=== PATIENT | male | born 1930 | race Caucasian/White ===

== ENCOUNTER 2016-06-25 10:46 | Inpatient (IN) | payer MEDICARE ==
[~2016-06-25] VITALS: Ht 182.9 cm; Wt 96.2 kg
[~2016-06-25 10:46] MED LIST: ASPI-892; DEXTROSE 50% 50 ML (IMS) SYR ONE; EYE OP; FAMO20TA5 PO; INSA10V SQ; LISI2.5T56; ONDA8TAB9 PO; [UNRECOGNIZED DRUG - REMARK]
[2016-06-25] MEDS ORDERED: ONDANSETRON 4 MG/2 ML (SDV) Z0FRAN ONE (10:51)
[2016-06-25] MEDS ORDERED: ONDANSETRON 4 MG/2 ML (SDV) Z0FRAN IVP ONE (11:00)
[2016-06-25 11:02] LABS: BASOPHILS % (AUTO) 0 % (0-10); EOSINOPHILS % (AUTO) 0 % (0-10); LYMPHOCYTES # (AUTO) 0.7 X 10^3 (1.0-4.0); LYMPHOCYTES % (AUTO) 8 % (12-44); MEAN CORPUSCULAR HEMOGLOBIN 30 PG (25-34); MEAN CORPUSCULAR HGB CONC 34 G/DL (32-36); MEAN CORPUSCULAR VOLUME 90 FL (80-99); MEAN PLATELET VOLUME 10.7 FL (7.4-10.4); MONOCYTES # (AUTO) 0.4 X 10^3 (0.0-1.0); MONOCYTES % (AUTO) 5 % (0-12); NEUTROPHILS # (AUTO) 7.8 X 10^3 (1.8-7.8); NEUTROPHILS % (AUTO) 87 % (42-75); PLATELET COUNT 162 10^3/uL (130-400); RED BLOOD COUNT 4.89 10^6/uL (4.35-5.85); RED CELL DISTRIBUTION WIDTH 12.9 % (10.0-14.5); WHITE BLOOD COUNT 8.9 10^3/uL (4.3-11.0)
[2016-06-25 11:16] LABS: BILIRUBIN,TOTAL 0.7 MG/DL (0.1-1.0); CREATININE SERUM 1.44 MG/DL (0.60-1.30); TOTAL PROTEIN 7.1 G/DL (6.4-8.2)
[2016-06-25 11:20] LABS: POTASSIUM 4.2 MMOL/L (3.6-5.0)
--- NOTE | 2016-06-25 11:22 | Diagnostic Imaging Report ---
Clinical indication: Patient with altered mental status. Exam: Axial CT scan of brain performed without IV contrast. Of note, patient was unable to hold still. Comparison: CT scan of the brain performed without IV contrast dated 02/26/2016. FINDINGS: Motion artifact limits evaluation of portions of the brain parenchyma. There is no CT evidence of acute cerebral infarct, intracranial hemorrhage, or gross mass effect. There is no significant change to the focal and patchy areas of low-attenuation white matter changes throughout both cerebral hemispheres likely representing chronic small vessel ischemic disease. There is normal devine-white matter distinction. The brain parenchymal volume appears appropriate for patient's age. There is no significant midline shift or herniation. There is no evidence of hydrocephalus. The basal cisterns are unremarkable. The skull, extracranial soft tissue, and orbits are unremarkable. There is near complete consolidation of the right frontal sinus, right ethmoid sinus, and upper aspect of the right maxillary sinus. There is mild patchy mucosal thickening in the ethmoid sinus. Paranasal sinus disease is not significantly changed compared to the prior study, as visualized. IMPRESSION: 1: Limited exam due to patient motion artifact. 2: There is no evidence of interval acute intracranial process. 3: Relatively stable CT scan of brain with chronic small vessel ischemic disease. 4: There is no significant change to the visualized portions of paranasal sinusitis. Dictated by: Dictated on workstation # [id number]
[2016-06-25 11:55] LABS: BILIRUBIN,URINE NEGATIVE (NEGATIVE); KETONES,URINE NEGATIVE (NEGATIVE); LEUKOCYTE ESTERASE ,URINE NEGATIVE (NEGATIVE); NITRITE,URINE NEGATIVE (NEGATIVE); PH,URINE 5 (5-9); PROTEIN,URINE 2+ (NEGATIVE); UROBILINOGEN,URINE NORMAL (NORMAL)
[2016-06-25 12:07] LABS: GRANULAR CASTS,URINE RARE /LPF; HYALINE CASTS, URINE RARE /LPF; SQUAMOUS EPITHELIAL CELL,UR RARE /HPF; WBC,URINE RARE /HPF
--- NOTE | 2016-06-25 12:07 | ED General ---
General Chief Complaint: Neuro-Stroke Like Symptoms Stated Complaint: LOW BLOOD SUGAR Nursing Triage Note: PT TO RM 2 BY CR CO WITH CC OF HYPOGLYCEMIA. PT'S BLOOD SUGAR WAS 24 ON EMS ARRIVAL AT HOME, 1 AMP D-50 GIVEN BY EMS [facility]. BLOOD SUGAR 196 ON ARRIVAL TO ER , STROKE ACTIVATION DONE AT 1048, PT TO CT AT 1055. PT NOT ABLE TO ANSWER QUESTIONS, JUMBLED WORDS, MOVING ARMS AND LEGS ABOUT THE BED, NOT FOLLOWING COMMANDS. LAST KNOWN WELL TIME WAS LAST NIGHT. PT WAS UNRESPONSIVE WHEN FAMILY TRIED TO WAKE HIM UP ABOUT 0930, PT NORMALLY WAKES UP AROUND 0600. Nursing Sepsis Screen: No Definite Risk Source of Information: Patient, EMS, Family Exam Limitations: No Limitations History of Present Illness Time Seen by Provider: 12:03 Initial Comments The patient is an 85-year-old white male. He is an insulin-requiring diabetic. His states that his blood sugar was 118 before bedtime last night. He did not answer the [place] this morning and EMS was called. Their glucometer blood sugar registered 24. He was given an amp of D50 and brought here. His follow-up was 196. He awakened but spoke only in gibberish and word [employer]. Timing/Duration: 12-24 Hours Allergies and Home Medications Allergies Coded Allergies: No Known Drug Allergies (Unverified , 11/25/12) Home Medications (Reported) Insuln Asp Prt/Insulin Aspart 10 Units/0.1 Ml Susp 35 UNITS SQ BID (Reported) Constitutional: see HPI other Psychiatric/Neurological: See HPI Hematologic/Lymphatic: See HPI Other The patient is arousable but unable to give any useful history. Past Mqcjeqt-Pjrhqn-Dfqrrk Hx Patient Social History Alcohol Use: Regular Use Recreational Drug Use: No Smoking Status: Never a Smoker Recent Foreign Travel: No Contact w/Someone Who Travel: No Recent Infectious Disease Expo: No Recent Hopitalizations: No Physical Abuse Screen: No Sexual Abuse: No Immunizations Up To Date Date of Influenza Vaccine: Mar 04, 2016 Seasonal Allergies Seasonal Allergies: No Surgeries HX Surgeries: Yes (BI LAT KNEES REPLACED, PROSTATECTOMY) Surgeries: Cardiac, CABG, Orthopedic Respiratory Hx Respiratory Disorders: No Cardiovascular Hx Cardiac Disorders: Yes ([place] --2006--S/P CABG) Cardiac Disorders: Chronic Edema/Swelling, Coronary Artery Disease, Deep Vein Thrombosis, Heart Attack Neurological Hx Neurological Disorders: Yes (RT LEG WEAKNESS) Neurological Disorders: TIA Genitourinary Hx Genitourinary Disorders: Yes (PROSTATECTOMY) Genitourinary Disorders: Prostate Problems Gastrointestinal Hx Gastrointestinal Disorders: No Musculoskeletal Hx Musculoskeletal Disorders: Yes Musculoskeletal Disorders: Arthritis Endocrine Hx Endocrine Disorders: Yes Endocrine Disorders: Diabetes, Insulin dep HEENT HX ENT Disorders: Yes (DENTURES) HEENT Disorders: Glaucoma Cancer Hx Cancer: Yes Cancer: Prostate Psychosocial Hx Psychiatric Problems: No Integumentary HX Skin/Integumentary Disorder: No Blood Transfusions Hx Blood Disorders: No Physical Exam Vital Signs Vital Sign - Last 12Hours 06/25/16 11:16 Temp 98.5 Pulse 96 Resp 20 B/P 183/73 Pulse Ox 98 O2 Delivery Room Air Capillary Refill : Less Than 3 Seconds General Appearance: Moderate Distress Eyes: Bilateral Eye Normal Inspection HEENT: Normal ENT Inspection Neck: Full Range of Motion Normal Inspection Non Tender Supple Carotid Bruit Respiratory: Chest Non Tender Lungs Clear Normal Breath Sounds No Accessory Muscle Use No Respiratory Distress Cardiovascular: Regular Rate, Rhythm No Edema No Gallop No JVD No Murmur Normal Peripheral Pulses Gastrointestinal: Normal Bowel Sounds No Organomegaly No Pulsatile Mass Non Tender Soft Extremity: Normal Capillary Refill Normal Inspection Normal Range of Motion Non Tender No Calf Tenderness No Pedal Edema Neurologic/Psychiatric: Alert Oriented x3 No Motor/Sensory Deficits Normal Mood/Affect Progress/Results/Core Measures Results/Orders Lab Results Laboratory Tests Test 06/25/16 10:46 06/25/16 11:45 Range/Units Alanine Aminotransferase (ALT/SGPT) 21 0-55 U/L Albumin 4.0 3.2-4.5 G/DL Alkaline Phosphatase 96 40-136 U/L Anion Gap 11 5-14 MMOL/L Aspartate Amino Transf (AST/SGOT) 25 5-34 U/L BUN/Creatinine Ratio 13 Basophils # (Auto) 0.0 0.0-0.1 10^3/uL Basophils (%) (Auto) 0 0-10 % Blood Urea Nitrogen 19 H 7-18 MG/DL Calcium Level 9.0 8.5-10.1 MG/DL Carbon Dioxide Level 21 21-32 MMOL/L Chloride Level 107 98-107 MMOL/L Creatinine 1.44 H 0.60-1.30 MG/DL Eosinophils # (Auto) 0.0 0.0-0.3 10^3/uL Eosinophils (%) (Auto) 0 0-10 % Estimat Glomerular Filtration Rate 46 Glucose Level 141 H 70-105 MG/DL Hematocrit 44 40-54 % Hemoglobin 14.8 13.3-17.7 G/DL Lymphocytes # (Auto) 0.7 L 1.0-4.0 X 10^3 Lymphocytes (%) (Auto) 8 L 12-44 % Mean Corpuscular Hemoglobin 30 25-34 PG Mean Corpuscular Hemoglobin Concent 34 32-36 G/DL Mean Corpuscular Volume 90 80-99 FL Mean Platelet Volume 10.7 H 7.4-10.4 FL Monocytes # (Auto) 0.4 0.0-1.0 X 10^3 Monocytes (%) (Auto) 5 0-12 % Neutrophils # (Auto) 7.8 1.8-7.8 X 10^3 Neutrophils (%) (Auto) 87 H 42-75 % Platelet Count 162 130-400 10^3/uL Potassium Level 4.2 3.6-5.0 MMOL/L Red Blood Count 4.89 4.35-5.85 10^6/uL Red Cell Distribution Width 12.9 10.0-14.5 % Sodium Level 139 135-145 MMOL/L Total Bilirubin 0.7 0.1-1.0 MG/DL Total Protein 7.1 6.4-8.2 G/DL White Blood Count 8.9 4.3-11.0 10^3/uL Urine Bacteria TRACE /HPF Urine Bilirubin NEGATIVE NEGATIVE Urine Casts PRESENT /LPF Urine Clarity CLEAR Urine Color YELLOW Urine Crystals NONE /LPF Urine Culture Indicated NO Urine Glucose (UA) 1+ H NEGATIVE Urine Granular Casts RARE /LPF Urine Hyaline Casts RARE /LPF Urine Ketones NEGATIVE NEGATIVE Urine Leukocyte Esterase NEGATIVE NEGATIVE Urine Mucus SMALL H /LPF Urine Nitrite NEGATIVE NEGATIVE Urine Protein 2+ H NEGATIVE Urine RBC NONE /HPF Urine RBC (Auto) NEGATIVE NEGATIVE Urine Specific [place] 1.020 1.016-1.022 Urine Squamous Epithelial Cells RARE /HPF Urine Urobilinogen NORMAL NORMAL MG/DL Urine WBC RARE /HPF Urine pH 5 5-9 My Orders Orders-NORA GARCIA MD Cbc With Automated Diff (06/25/16 10:56) Comprehensive Metabolic Panel (06/25/16 10:56) Ua Culture If Indicated (06/25/16 10:56) Ct Head Wo (06/25/16 10:56) Ondansetron Injection (Zofran Injectio (06/25/16 11:00) Ondansetron Injection (Zofran Injectio (06/25/16 10:51) Medications Given in ED Current Medications Medications Dose Ordered Sig/Bina Route Start Time Stop Time Status Last Admin Dose Admin Ondansetron HCl 8 mg ONCE ONCE IVP 06/25/16 11:00 06/25/16 11:01 DC 06/25/16 11:02 8 MG Vital Signs/I&O Vital Sign - Last 12Hours 06/25/16 11:16 Temp 98.5 Pulse 96 Resp 20 B/P 183/73 Pulse Ox 98 O2 Delivery Room Air Blood Pressure Mean: 109 Departure Impression Impression: Primary Impression: hypoglycemic global encephalopathy Disposition: ADMITTED INPATIENT Condition: Improved Decision to Admit Reason: Admit from ER (General) Decision to Admit/Date: Jun 25, 2016 Time/Decision to Admit Time: 12:25 Departure-Patient Inst. Referrals: FAM PALMER MD (PCP/Family) Primary Care Physician NORA GARCIA MD Jun 25, 2016 12:07
[2016-06-25] MEDS ORDERED: D5W 1000 ML IV SOLUTION 1,000 ML ONE (12:40)
[2016-06-25 13:20] VITALS: BP 170/70
[2016-06-25] MEDS: D5 NS 1000 ML IV SOLUTION 1,000 ML IV SCH (14:08)
[2016-06-25] MEDS ORDERED: DEXTROSE 50% 50 ML (IMS) SYR ONE ×2 (14:56→15:36)
[2016-06-25] MEDS ORDERED: DORZ10DR2 OU (16:10)
[2016-06-25] MEDS ORDERED: LATA2.5D5 OU (16:10)
[2016-06-25] MEDS ORDERED: ASPI-808 PO (16:10)
[2016-06-25] MEDS ORDERED: [UNRECOGNIZED DRUG - CODE] PO (16:10)
[2016-06-25] MEDS ORDERED: [UNRECOGNIZED DRUG - CODE] OU (16:10)
[2016-06-25] MEDS ORDERED: LISI-556 PO (16:10)
[2016-06-25] MEDS ORDERED: HUM100VI15 SQ (16:10)
[2016-06-25 16:15] VITALS: BP 159/69
[2016-06-25] MEDS ORDERED: DEXTROSE 50% 50 ML (IMS) SYR IV NR ×2 (16:15)
[2016-06-25] MEDS ORDERED: ARTIFICAL TEARS 0.4 ML UNIT DOSE (REFRESH PLUS) OU PRN (17:30)
--- NOTE | 2016-06-25 18:05 | History & Physicial ---
History of Present Illness History of Present Illness Reason for visit/HPI PT IS AN 85 Y/O MALE WHO IS KNOWN TO ME FROM CLINIC. THE PATIENT IS NOT ABLE TO PARTICIPATE IN THE HPI. WHEN I ASKED THE PATIENT IF HE KNEW WHO I WAS, HE SAID, "YES HONEY", THEN TRIED TO DRAW ME IN TO HIM, BUT WAS UNABLE TO ANSWER ANY OTHER QUESTIONS. THE PATIENT'S FAMILY WAS NOT IN THE ROOM WHEN I EXAMINED HIM AND THEREFORE HIS HPI INFORMATION IS TAKEN FROM THE EMERGENCY DEPARTMENT RECORD. PT HAD A FSBS OF 118 AT HOME LAST NIGHT, DID NOT AWAKEN THIS MORNING WHEN ALARM WENT OFF - FAMILY CALLED EMS AND PT'S BLOOD SUGAR WAS 24 ON EMS ARRIVAL AT HOME, 1 AMP D- 50 GIVEN BY EMS. WHEN PT ARRIVED TO THE ER BLOOD SUGAR 196, STROKE ACTIVATION DONE AT 1048 CT SCAN WAS NEGATIVE FOR ACUTE STROKE. PT UNABLE TO ANSWER QUESTIONS- WORD SALAD AT TIMES, REPETITIVE ANSWER OF "YES HONEY." I ATTEMPTED TO CALL THE PATIENT'S DAUGHTER, BUT THE FAMILY NEVER ANSWERED THE PHONE. Date of Admission Jun 25, 2016 at 12:38 I consulted on this patient on 06/25/16 18:05 Attending Physician Fam Heath MD Admitting Physician Fam Heath MD Consult Allergies and Home Medications Allergies Coded Allergies: No Known Drug Allergies (Unverified , 11/25/12) Home Medications Acetaminophen/Diphenhydramine 1 Each Tablet 1 TAB PO HS PRN PRN PAIN (Reported) Aspirin 325 Mg Tablet 325 MG PO DAILY (Reported) Dorzolamide HCl 10 Ml Drops 1 DROP OU BID (Reported) Hypromellose 15 Ml Drops 1 DROP OU QID PRN PRN DRY EYES (Reported) Insulin NPH Hum/Reg Insulin Hm 100 Unit/1 Ml Vial 30 UNIT SQ BID (Reported) Latanoprost 2.5 Ml Drops 1 DROP OU HS (Reported) Lisinopril 5 Mg Tablet 2.5 MG PO DAILY (Reported) TAKES 1/2 OF A (5 MG) TABLET Past [facility]-Wkiyfm-Cpmfbg Hx Patient Social History Marrital Status: Living Status: LIVES AT HOME WITH SPOUSE Employed/Student: part-time employed ([employer] AT [employer]) Alcohol Use: Regular Use Recreational Drug Use: No Smoking Status: Never a Smoker 2nd Hand Smoke Exposure: No Physical Abuse Screen: No Sexual Abuse: No Recent Foreign Travel: No Contact w/other who traveled: No Recent Hopitalizations: No Recent Infectious Disease Expo: No Immunizations Up To Date Date of Influenza Vaccine: Mar 04, 2016 Seasonal Allergies Seasonal Allergies: No Surgeries HX Surgeries: Yes (BI LAT KNEES REPLACED, PROSTATECTOMY) Surgeries: Cardiac, CABG, Orthopedic Respiratory Hx Respiratory Disorders: No Cardiovascular Hx Cardiovascular Disorders: Yes ([place] --2005--S/P CABG) Cardiac Disorders: Chronic Edema/Swelling, Coronary Artery Disease, Deep Vein Thrombosis, Heart Attack Neurological Hx Neurological Disorders: Yes (RT LEG WEAKNESS) Neurological Disorders: TIA Genitourinary Hx Genitourinary Disorders: Yes (PROSTATECTOMY) Genitourinary Disorders: Prostate Problems Gastrointestinal Hx Gastrointestinal Disorders: No Musculoskeletal Hx Musculoskeletal Disorders: Yes Musculoskeletal Disorders: Arthritis Endocrine Hx Endocrine Disorders: Yes Endocrine Disorders: Diabetes, Insulin dep HEENT HX ENT Disorders: Yes (DENTURES) HEENT Disorders: Glaucoma Loss of Vision: Denies Hearing Impairment: Hard of Hearing Cancer Hx Cancer: Yes Cancer: Prostate Psychosocial Hx Psychiatric Problems: No Integumentary HX Skin/Integumentary Disorder: No Blood Transfusions Hx Blood Disorders: No Reviewed Nursing Assessment Reviewed/Agree w Nursing PMH: Yes Family Medical History Significant Family History: Heart Disease, Hypertension Constitutional: fever other ( CONFUSED AND UNABLE TO ANSWER QUESTIONS) EENTM: other (DRY MOUTH) Respiratory: no symptoms reported Cardiovascular: no symptoms reported Gastrointestinal: No abdominal pain Genitourinary: incontinence Musculoskeletal: no symptoms reported Skin: no symptoms reported Psychiatric/Neurological: Pre-Existing Deficit Weakness Other PT UNABLE TO PARTICIPATE IN REVIEW OF SYSTEMS DUE TO HIS CONFUSED STATE All Other Systems Reviewed Negative Unless Noted: No Physical Exam Vital Signs Vital Sign - Last 12Hours 06/25/16 11:16 Temp 98.5 Pulse 96 Resp 20 B/P 183/73 Pulse Ox 98 O2 Delivery Room Air Capillary Refill : Less Than 3 Seconds General Appearance: Other (CONFUSED, PULLING MYSELF AND STAFF TO HIS BED) Eyes: Bilateral Eye Normal Inspection HEENT: PERRL/EOMI Pharynx Normal Neck: Supple Respiratory: Chest Non Tender Lungs Clear Normal Breath Sounds Cardiovascular: Regular Rate, Rhythm Gastrointestinal: Normal Bowel Sounds Soft Rectal: Deferred Extremity: Pedal Edema (TRACE) Neurologic/Psychiatric: Alert Disoriented x3 Other (STRENGTH INTACT BILATERAL UPPER EXTREMITIES, MOVES ALL EXTREMITIES, PT WILL NOT PARTICIPATE IN EXAM) Skin: Warm/Dry Lymphatic: No Adenopathy Comments PT UNABLE TO ALLOW FULL EXAM DUE TO HIS CONFUSION, GRABBING AT THIS PROVIDER, UNABLE TO DO REFLEXES DUE TO PT MOVEMENT. Assessment/Plan Assessment and Plan HYPOGLYCEMIA CONFUSION WEAKNESS HYPERTENSION HX CORONARY ARTERY DISEASE HX OF TIA FEVER GLOBAL ENCEPHALOPATHY HYPOGLYCEMIA - CONTINUE WITH D5 IN FLUIDS, PRN D50, Q 2 HOUR FSBS, CHECK LABS IN MORNING CONFUSION WITH GLOBAL ENCEPHALOPATHY - CHECK MRI OF BRAIN AND CAROTID ULTRASOUND AND ECHO IN THE MORNING - CT OF HEAD NEGATIVE, PT UNABLE TO PARTICIPATE IN EVALUATION. FAMILY NOT IN ROOM AT THIS TIME. - WILL NEED TO DISCUSS THE FULL CODE STATUS THAT FAMILY INDICATED TO STAFF THAT THEY WANT TO HAVE ON PATIENT. I DO NOT THINK THAT FULL CODE STATUS IS APPROPRIATE AT THIS TIME. WEAKNESS - MONITOR - ONCE ABLE TO PARTICIPATE IN THERAPY - NEED TO START PT/OT HYPERTENSION - WILL GIVE A DOSE OF IV LOPRESSOR PRN IF PRESSURE ABOVE 190/110 OR HEART RATE GREATER THAN 120 HX CORONARY ARTERY DISEASE HX OF TIA FEVER - GIVE PRN TYLENOL, CHECK LACTIC ACID ANALYZER, REPEAT CBC IN MORNING, BLOOD CULTURE, AND START ON ROCEPHIN AFTER CULTURE OBTAINED. ONCE LACTIC ACID ANALYZER REPORT IS BACK - IF SEPSIS PROTOCOL IS NEEDED TO BE INITIATED, WILL START ON PROTOCOL. AT THIS TIME IT DOES NOT APPEAR THAT PT IS SEPTIC. Admission Diagnosis HYPOGLYCEMIA CONFUSION WEAKNESS HYPERTENSION HX CORONARY ARTERY DISEASE HX OF TIA FEVER GLOBAL ENCEPHALOPATHY Clinical Quality Measures DVT/VTE Risk/Contraindication: Risk Factor Score Per Nursin RFS Level Per Nursing on Admit: 4+=Very High FAM HEATH MD Jun 25, 2016 18:05
[2016-06-25] MEDS ORDERED: DEXTROSE 50% 50 ML (IMS) SYR IV PRN (18:15)
[2016-06-25] MEDS ORDERED: ACETAMINOPHEN 650 MG SUPP (TYLENOL) PR NR (18:15)
[2016-06-25] MEDS ORDERED: ACETAMINOPHEN 650 MG SUPP (TYLENOL) PR PRN (18:15)
[2016-06-25] MEDS: cefTRIAXone INJECTION 1,000 MG in NORMAL SALINE (BAXTER MINI) 50 ML IV SCH (18:42)
[2016-06-25] MEDS: ENOXAPARIN 40 MG/0.4 ML (LOVENOX) SYR SC SCH (18:43)
[2016-06-25 19:25] VITALS: BP 146/61
[2016-06-25 19:25] LABS: hs C REACTIVE PROTEIN 0.21 MG/DL (0.00-0.50)
[2016-06-25 19:30] LABS: ALCOHOL < 10 MG/DL (<10)
[2016-06-25 19:47] LABS: THYROID STIMULATING HORMONE 0.37 UIU/ML (0.35-4.94)
[2016-06-25] MEDS: DORZOLAMIDE 2% 10 ML BTL (TRUSOPT) OU SCH (20:36)
[2016-06-25] MEDS: LATANOPROST 0.005% (XALATAN) OPHTH SOLN 2.5 ML OU SCH (21:00)
[2016-06-25] MEDS: PANTOPRAZOLE 40 MG/10 ML (PROTONIX) VIAL IV SCH (22:18)
[2016-06-26 00:34] VITALS: BP 145/64
[2016-06-26] MEDS: D5 NS 1000 ML IV SOLUTION 1,000 ML IV SCH ×2 (02:11→10:24)
[2016-06-26 04:24] VITALS: BP 122/66
[2016-06-26] MEDS ORDERED: NORMAL SALINE (BAXTER MINI) 50 ML IV ONE (06:40)
[2016-06-26] MEDS ORDERED: cefTRIAXone 1 GM (ROCEPHIN) VIAL ONE (06:40)
[2016-06-26 08:00] VITALS: BP 141/62
[2016-06-26] MEDS: PANTOPRAZOLE 40 MG/10 ML (PROTONIX) VIAL IV SCH ×2 (08:17→21:47)
[2016-06-26] MEDS: cefTRIAXone INJECTION 1,000 MG in NORMAL SALINE (BAXTER MINI) 50 ML IV SCH (08:17)
[2016-06-26] MEDS: ASPIRIN 325 MG (5 GR) TABLET PO SCH (08:19)
[2016-06-26] MEDS: DORZOLAMIDE 2% 10 ML BTL (TRUSOPT) OU SCH ×2 (08:20→21:49)
--- NOTE | 2016-06-26 08:27 | Progress Note (SOAP) ---
Subjective Subjective/Events-last exam PT REPORTS THAT HE IS FEELING BETTER TODAY - HIS FAMILY REPORTS HE IS COMPLAINING OF NAUSEA. THEY STATE THAT THEY THINK HE IS BACK TO HIS BASELINE. Review of Systems General: Fatigue HEENT: No Head Aches, No Eye Pain Pulmonary: No Dyspnea, No Cough Cardiovascular: No: Chest Pain, Palpitations Gastrointestinal: : NauseaNo: Abdominal Pain Genitourinary: No Dysuria Neurological: : Confusion (IMPROVED): Weakness Objective Exam Vital Signs Date Time Temp Pulse Resp B/P Pulse Ox O2 Delivery O2 Flow Rate FiO2 06/26/16 04:24 98.6 70 18 122/66 98 Room Air 06/26/16 01:52 98.6 06/26/16 00:34 99.2 72 20 145/64 94 Room Air 06/25/16 22:33 99.4 06/25/16 21:30 100.0 06/25/16 19:33 100.2 06/25/16 19:25 100.2 93 22 146/61 92 Room Air 06/25/16 18:42 100.9 06/25/16 17:15 100.9 06/25/16 16:15 100.2 90 24 159/69 99 Room Air 06/25/16 13:30 100.0 82 17 97 Room Air 06/25/16 13:20 99.0 88 14 170/70 95 Room Air 06/25/16 11:16 98.5 96 20 183/73 98 Room Air I & O 06/26/16 07:00 Intake Total 1100 ml Output Total 475 ml Balance 625 ml Capillary Refill : Less Than 3 Seconds General Appearance: No Apparent Distress WD/WN HEENT: PERRL/EOMI Pharynx Normal Respiratory: Chest Non Tender Lungs Clear Normal Breath Sounds Cardiovascular: Regular Rate, Rhythm Gastrointestinal: normal bowel sounds non tender soft no organomegaly no pulsatile mass Extremity: Normal Capillary Refill No Calf Tenderness No Pedal Edema Neurologic/Psychiatric: Alert Oriented x3 No Motor/Sensory Deficits Normal Mood/Affect Skin: Warm/Dry Lymphatic: No Adenopathy Results Lab Laboratory Tests 06/25/16 10:46: Alanine Aminotransferase (ALT/SGPT) 21, Albumin 4.0, Alkaline Phosphatase 96, Anion Gap 11, Aspartate Amino Transf (AST/SGOT) 25, BUN/Creatinine Ratio 13, Basophils # (Auto) 0.0, Basophils (%) (Auto) 0, Blood Urea Nitrogen 19H, Calcium Level 9.0, Carbon Dioxide Level 21, Chloride Level 107, Creatinine 1.44H , Eosinophils # (Auto) 0.0, Eosinophils (%) (Auto) 0, Estimat Glomerular Filtration Rate 46, Glucose Level 141H, Hematocrit 44, Hemoglobin 14.8, Lymphocytes # (Auto) 0.7L, Lymphocytes (%) (Auto) 8L, Mean Corpuscular Hemoglobin 30, Mean Corpuscular Hemoglobin Concent 34, Mean Corpuscular Volume 90, Mean Platelet Volume 10.7H, Monocytes # (Auto) 0.4, Monocytes (%) (Auto) 5, Neutrophils # (Auto) 7.8, Neutrophils (%) (Auto) 87H, Platelet Count 162, Potassium Level 4.2, Red Blood Count 4.89, Red Cell Distribution Width 12.9, Sodium Level 139, Total Bilirubin 0.7, Total Protein 7.1, White Blood Count 8.9 06/25/16 10:47: Glucometer 196H 06/25/16 11:45: Urine Bacteria TRACE, Urine Bilirubin NEGATIVE, Urine Casts PRESENT, Urine Clarity CLEAR, Urine Color YELLOW, Urine Crystals NONE, Urine Culture Indicated NO, Urine Glucose (UA) 1+H, Urine Granular Casts RARE, Urine Hyaline Casts RARE , Urine Ketones NEGATIVE, Urine Leukocyte Esterase NEGATIVE, Urine Mucus SMALLH , Urine Nitrite NEGATIVE, Urine Protein 2+H, Urine RBC NONE, Urine RBC (Auto) NEGATIVE, Urine Specific [place] 1.020, Urine Squamous Epithelial Cells RARE, Urine Urobilinogen NORMAL, Urine WBC RARE, Urine pH 5 06/25/16 12:43: Glucometer 72 06/25/16 14:56: Glucometer 47*L 06/25/16 15:35: Glucometer 76 06/25/16 16:17: Glucometer 140H 06/25/16 17:29: Glucometer 174H 06/25/16 18:53: C-Reactive Protein High Sensitivity 0.21, Lactic Acid Level 1.5, Serum Alcohol < 10, Thyroid Stimulating Hormone (TSH) 0.37 06/25/16 19:57: Glucometer 92 06/25/16 21:56: Glucometer 103 06/25/16 23:50: Glucometer 81 06/26/16 01:53: Glucometer 108 06/26/16 03:56: Glucometer 109 06/26/16 05:53: Glucometer 119H 06/26/16 06:46: 06/26/16 08:02: Glucometer 174H Assessment/Plan Assessment/Plan Assess & Plan/Chief Complaint HYPOGLYCEMIA CONFUSION WEAKNESS HYPERTENSION HX CORONARY ARTERY DISEASE HX OF TIA FEVER GLOBAL ENCEPHALOPATHY HYPOGLYCEMIA - CONTINUE WITH D5 IN FLUIDS, PRN D50, Q 2 HOUR FSBS, CHECK LABS IN MORNING CONFUSION WITH GLOBAL ENCEPHALOPATHY - UNABLE TO CHECK MRI OF BRAIN DUE TO PT INABILITY TO MOVE NECK INTO A POSITION SO THAT HIS HEAD CAN FIT INTO THE MRI MACHINE - WAITING ON REPORT FROM CAROTID ULTRASOUND AND ECHO CT OF HEAD NEGATIVE. PT HAS CLEARING OF SENSORIUM TODAY - IF CONTINUES TO IMPROVE MAY BE ABLE TO DISCHARGE TOMORROW. WEAKNESS - MONITOR -AND START PT/OT HYPERTENSION - RESTART ORAL MEDS FROM HOME HX CORONARY ARTERY DISEASE HX OF TIA FEVER - GIVE PRN TYLENOL Diagnosis/Problems: Clinical Quality Measures DVT/VTE Risk/Contraindication: Risk Factor Score Per Nursin RFS Level Per Nursing on Admit: 4+=Very High FAM PALMER MD Jun 26, 2016 08:26
[2016-06-26 08:40] LABS: MEAN PLATELET VOLUME 11.6 FL (7.4-10.4); RED BLOOD COUNT 4.38 10^6/uL (4.35-5.85); WHITE BLOOD COUNT 8.3 10^3/uL (4.3-11.0)
[2016-06-26 08:47] LABS: ALBUMIN 3.4 G/DL (3.2-4.5); CALCIUM 8.3 MG/DL (8.5-10.1); CREATININE SERUM 1.49 MG/DL (0.60-1.30); POTASSIUM 4.2 MMOL/L (3.6-5.0); TOTAL PROTEIN 6.1 G/DL (6.4-8.2)
--- NOTE | 2016-06-26 10:06 | Diagnostic Imaging Report ---
PROCEDURE: US Carotid Duplex Bilateral. TECHNIQUE: Multiple real-time grayscale images were obtained over the carotid arteries in various projections bilaterally. Additional duplex Doppler and color Doppler images were also obtained. INDICATION: Confusion. There are no prior studies available for comparison. There is fairly severe hard and soft plaque formation involving both carotid systems, particularly on the left. The flow velocities also suggest that there is a 70-80% stenosis of the distal internal carotid artery on the left. The flow velocities are as follows: Mid CCA: Right 73.7. Left 80.1. Distal CCA: Right . Left 74.6 Proximal ICA: Right 58.8. Left 183. Mid ICA: Right 105. Left 185. Distal ICA: Right 64.5. Left 256. ICA/CCA: Right 1.42. Left 3.20. The left vertebral artery was identified, and there was antegrade flow. The right vertebral artery could not be clearly imaged. IMPRESSION: 1. There is atherosclerotic disease involving both carotid systems, and there does appear to be an 70-80% stenosis of the origin of the internal carotid artery on the left. The right vertebral artery could not be identified. CTA of the neck would be recommended for further study. 2. There is no sign of a hemodynamically significant stenosis of the right carotid system. There was antegrade flow in the left vertebral artery. Dictated by: Dictated on workstation # [id number]
--- NOTE | 2016-06-26 11:53 | Occupational Therapy Eval ---
OT Evaluation-General/PLF Medical Diagnosis Admission Date Jun 25, 2016 at 18:06 Medical Diagnosis: Hypoglycemia, Global encephalopathy Onset Date: Jun 25, 2016 Therapy Diagnosis Therapy Diagnosis: Weakness, Decreased ADL skills Height/Weight Height (Feet): 6 Height (Inches): 0.00 Weight (Pounds): 212 Weight (Ounces): 3.0 Precautions Precautions/Isolations: Fall Prevention Safety Interventions: Reorient-PRN Weight Bear Status Weight Bearing Restriction: Weight Bearing/Tolerated Referral Physician: Dr. Heath Referral Reason: Activity Tolerance, Self Care, Evaluation/Treatment, Strengthening/ROM Medical History Pertinent Medical History: CABG, CAD Additional Medical History Bilateral knees replaced, prostatectomy, DVT, TIA, diabetes, glaucoma Current History Pt. became confused at home. Unable to arouse. Lives with spouse. Has a walker but "doesn't use it." Reviewed History: Yes Social History Home: Single Level Current Living Status: Spouse Entry Into Home: Ramp ADL-Prior Level of Function ADL PLOF Comments Spouse in room and answers questions for pt. Pt. was independent with daily tasks, and drove. States that he would mow grass. DME/Equipment: Bath Chair, Tub/Shower DME/Equipment Comments Has walker. 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 Pt. smiling. Confused about history. Appearance Pt. in bed. Starting to get out of bed with PT. Agrees to co-treat. Please see note. Mental Status/Objective Patient Orientation: Unable to Assess Attachments: Smith Catheter, IV Current Glasses/Contacts: Yes Hearing Aids: No Dentures/Partials: Yes Hand Dominance: Right Upper Extremity ROM WFL Upper Extremity Strength 3/5 bilateral UE strength. ADL-Treatment Functional [place] Measure 0=Not Assessed/NA 4=Minimal Assistance 1=Total Assistance 5=Supervision or Setup 2=Maximal Assistance 6=Modified [place] 3=Moderate Assistance 7=Complete IndependenceIRFPAI Quality Coding Scale 6 Independent with activity with or without an assistive device 5 Patient requires set up or clean up by helper. Patient completes activity by themselves 4 Supervision or touching assist (CGA). [place] provide cues , steadying assist 3 The helper provides less than half the effort to complete the activity 2 The helper provides more than half the effort to complete the activity 1 Dependent. The helper does all the effort to complete an activity 7 Patient refused to complete or attempt activity 9 The patient did not perform the activity before the current illness or injury 88 Not attempted due to Medical conditions or safety concerns Lower Body Dressing (FIM): 2 (Pt. unable to reach bilateral feet to don socks.) Transfers (B, C, W/C) (FIM): 3 (Without walker- required min assist x 2. With walker, min assist with assist of another to push IV pole.) Other Treatments Co-treat with PT. PT focused on transfer training and skilled ambulation while OT facilitated ADL skills with donning socks, and then hand placement while ambulating. Pt. unsteady on feet. Somewhat unbalance. PT began treatment before OT in room. OT facilitated education to spouse while PT assisting pt. back to bed. Education to spouse included need for safety. Education OT Patient Education: Correct positioning, Modified ADL techniques, Progress toward Goal/Update tx plan, Purpose of tx/functional activities, Reviewed precautions, Transfer techniques Teaching Recipient: Patient, Family Teaching Methods: Demonstration, Discussion Response to Teaching: Verbalize Understanding, Return Demonstration OT Short Term Goals Short Term Goals 1=Demonstrate adherence to instructed precautions during ADL tasks. 2=Patient will verbalize/demonstrate understanding of assistive devices/ modifications for ADL. 3=Patient will improve strength/tolerance for activity to enable patient to perform ADL's. OT Prison Goals Workers Compensation Consultant Goals 1=Demonstrate adherence to instructed precautions during ADL tasks. 2=Patient will verbalize/demonstrate understanding of assistive devices/ modifications for ADL. 3=Patient will improve strength/tolerance for activity to enable patient to perform ADL's. OT Education/Plan Problem List/Assessment Assessment: Decreased Activ Tolerance, Decreased UE Strength, Dependent Transfers, Impaired Bed Mobility, Impaired Cognition, Impaired Funct Balance, Impaired I ADL's, Impaired Self-Care Skills, Restricted Funct UE ROM Discharge Recommendations Plan/Recommendations: Continue POC Therapy D/C Recommendations: 24 hr Supervision Target Placement Spouse would like pt. to return home. However, at this time due to decreased cognition, he will require 24 hour assist. Treatment Plan/Plan of Care Treatment,Training & Education: Yes Patient would benefit from OT for education, treatment and training to promote independence in ADL's, mobility, safety and/or upper extremity function for ADL' s. Plan of Care: ADL Retraining, Functional Mobility, UE Funct Exercise/Act Agreement: Yes Rehab Potential: Fair Time/GCodes Start Time: 11:20 Stop Time: 11:35 Total Time Billed (hr/min): 15 Billed Treatment Time 1, DUKE Mccauley OT Jun 26, 2016 11:53
--- NOTE | 2016-06-26 11:59 | Physical Therapy Evaluation ---
PT Evaluation-General Medical Diagnosis Admission Date Jun 25, 2016 at 18:06 Medical Diagnosis: hypoglycemia Onset Date: Jun 25, 2016 Therapy Diagnosis Therapy Diagnosis: generalized weakness and debility Height/Weight Height (Feet): 6 Height (Inches): 0.00 Weight (Pounds): 212 Weight (Ounces): 3.0 Precautions Precautions/Isolations: Fall Prevention Referral Physician: Ivana Reason for Referral: Evaluation/Treatment Medical History Pertinent Medical History: Arthritis, CABG, CAD, DM, [place] Additional Medical History bilateral TKR Current History patient did not wake with alarm in a.m.; per EMS patient blood sugar was 24 increased confusion/global encephalopathy Reviewed History: Yes Social History Home: Single Level Current Living Status: Spouse Entry Into Home: Level Entry Prior/Core FIM Prior Level of Function Functional [place] Measure 0=Not Assessed/NA 4=Minimal Assistance 1=Total Assistance 5=Supervision or Setup 2=Maximal Assistance 6=Modified [place] 3=Moderate Assistance 7=Complete [place] Bed Mobility: 6 Transfers (B,C,W/C) (FIM): 6 Gait: 6 uses FWW at home occasionally PT Evaluation-Current Subjective Patient initially declined, however, after much encouragement, patient agrees to PT. Pain Numeric Pain Scale: 0-No Pain Location: No Pain Reported Objective Patient Orientation: Confused Problem Solving: Poor Attachments: Smith Catheter, IV ROM/Strength ROM Lower Extremities bilateral LE WFL Strenght Lower Extremities bilateral LE WFL; unable to formally test due to confusion Integumentary/Posture Integumentary refer to nursing notes Bladder Incontinence: Smith Cath Posture kyphotic Neuromuscular (Tone, Coordination, Reflexes) diminished coordination Sensory Vision: Wears Glasses Hearing: Impaired Sensation Right Lower Extremit: Impaired Sensation Left Lower Extremity: Impaired Transfers Functional [place] Measure 0=Not Assessed/NA 4=Minimal Assistance 1=Total Assistance 5=Supervision or Setup 2=Maximal Assistance 6=Modified [place] 3=Moderate Assistance 7=Complete [place] Transfers (B, C, W/C) (FIM): 2 Scootin Rollin Supine to/from Sit: 2 Sit to/from Stand: 4 patient is impulsive and unaware of safety concerns Gait Mode of Locomotion: Walk Anticipated Mode of Locomotion: Walk Gait (FIM): 3 Distance (FIM): 3=150 ft Distance: 200' Gait Level of Assist: 3 Gait Persons Needed: 2 Gait Assistive Device: FWW Comments/Gait Description mod assist of 1 and SBA of 1 for safety; patient is very unsteady with gait and impulsive Balance Sitting Static: Fair Sitting Dynamic: Fair Standing Static: Fair Standing Dynamic: Fair Treatment PT and OT cotreat due to patient confusion and inability to follow direction safely. PT address balance and gait training, while OT address bilateral hand placement with FWW and cognitive function with sequencing. Assessment/Needs 85 y.o. male, will benefit from skilled PT to address functional strength and mobility to improve current LOF and to safely return to home or care facility at maximum LOF. 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 Goals Senior Living Goals PT Senior Living Goals Time Frame: Jul 03, 2016 Transfers (B,C,W/C) (FIM): 5 Gait (FIM): 5 Gait distance (FIM): 3=150 ft Gait Assistive Device: FWW PT Plan Problem List Problem List: Activity Tolerance, Functional Strength, Safety, Balance, Gait, Transfer, Bed Mobility Treatment/Plan Treatment Plan: Continue Plan of Care Treatment Plan: Bed Mobility, Education, Functional Activity Santosh, Functional Strength, Gait, Safety, Therapeutic Exercise, Transfers Treatment Duration: Jul 03, 2016 # of days/week 5-6 Visits Per Week: 5-6 Pt/Family Agrees w/Plan: Yes Safety Risks/Education Patient Education: Gait Training, Safety Issues Teaching Recipient: Patient, Significant Other Teaching Methods: Demonstration, Discussion Response to Teaching: Unable to Return Demonstration, Unable to Comprehend, Reinforcement Needed Discharge Recommendations Therapy D/C Recommendations: Correction Placement, Intermediate (TCU/NH) Time/GCodes Time In: 1105 Time Out: 1135 Total Billed Treatment Time: 30 Total Billed Treatment 1 visit EVMod 15 min (and cotreat with OT 15 min) GUILLAUME WINTER PT Jun 26, 2016 11:59
[2016-06-26 12:00] VITALS: BP 156/66
--- NOTE | 2016-06-26 12:21 | ST Dysphagia Evaluation ---
Speech Evaluation-General Medical Diagnosis hypoglycemia Onset Date: Jun 25, 2016 Therapy Diagnosis Therapy Diagnosis: Mild Oral Dysphagia Precautions Precautions: Aspiration Precautions/Isolations: Fall Prevention Referral Referring Physician: Dr. Perlita Heath Reason for Referral: Evaluation/Treatment Clinical Bedside Swallowing Evaluation Medical History Pertinent Medical History: Arthritis, CABG, CAD, DM, [place] Reviewed History: Yes Social History Current Living Status: Spouse Speech PLF/Current-Dysphagia Prior Level of Function The patient's was present at bedside for the evaluation. Per patient's , the patient does not demonstrate signs/symptoms of aspiration with any consistency he currently consumes. The patient is currently receiving a regular diet with thin liquids. Subjective The patient was recently admitted to [facility] with a diagnosis of hypoglycemia. The patient greeted the clinician upon entrance and agreed to participate in the dysphagia evaluation on this date. A chest exam is not present prior to the assessment. Cognitive Status Patient Orientation: Person Oral Motor Skills Dentition: Edentalous Denture Type: Full- Upper & Lower Current Food Consistancy: Regular, Thin Liquids Ability to Follow Directions: Fair Oral Expression Ability: Moderate Impairment Voice Voice Phonatory-Based Quality: Normal Voice Pitch: Normal Voice Loudness: Normal Face Facial Symmetry: Symmetrical Oral-Facial Assessment Oral-Facial Dentition: Normal Labial Seal Description: Normal Smile: Normal Puff Cheeks: Normal Lingual ROM: Normal Lingual Strength: Normal Pharynx Velopharyngeal Move.: Normal Volitional Dry Swallow: Yes Dysphagia Evaluation Consistencies Presented: Regular, Thin Liquid, Pureed - The patient demonstrated mild oral holding with all consistencies tested. The patient elicited a swallow upon verbal prompt by clinician, consistently. - No pharyngeal impairments were noted throughout the evaluation. - Thin Liquid (via straw), puree, solid: No signs/symptoms of aspiration were demonstrated with multiple boluses of thin liquid, puree, or solid consistency. The patient's vocal quality remained clear and he denied discomfort upon swallowing. Oral holding was demonstrated with all consistencies. The patient elicited a swallow with verbal prompting from clinician (consistently). Dietary Recommendations: Regular Liquid Recommendations: Thin Swallowing Precautions: Oral Supervision Caregiver, Small Bites and Sips, Sitting 90 Degrees 30 Post Intake 1. Assess for oral holding throughout meals. If present, verbally prompt patient to elicit swallow. Dysphagia Evaluation Summary The patient demonstrated mild oral dysphagia characterized by oral holding. Speech-Plan Treatment Plan Speech Therapy Treatment Plan: Discontinue ST (Eval, only.) Rehab Potential: Fair Safety Risks/Education Teaching Recipient: Patient, Significant Other Teaching Methods: Discussion Response to Teaching: Verbalize Understanding, Reinforcement Needed Education Topics Provided: Swallowing Strategies, Recommendations Time Speech Therapy Time In: 12:00 Speech Therapy Time Out: 12:15 Total Billed Time: 15 Billed Treatment Time 1, VICTOR HUGO AMAYA Jun 26, 2016 12:21
[2016-06-26] MEDS: CATHETER FLUSH 10 ML SYR IV SCH ×2 (14:00→21:57)
[2016-06-26 15:50] VITALS: BP 144/69
[2016-06-26] MEDS: ENOXAPARIN 40 MG/0.4 ML (LOVENOX) SYR SC SCH (18:17)
[2016-06-26 20:55] VITALS: BP 159/62
[2016-06-26] MEDS: LATANOPROST 0.005% (XALATAN) OPHTH SOLN 2.5 ML OU SCH (21:00)
[2016-06-26] MEDS ORDERED: HALOPERIDOL 5 MG/ML (HALDOL) AMP IM ONE (21:45)
[2016-06-26] MEDS ORDERED: HALOPERIDOL 5 MG/ML (HALDOL) AMP IV ONE (21:45)
[2016-06-26] MEDS: NS IV 1000 ML 1,000 ML IV SCH (21:47)
[2016-06-27] VITALS: BP 134/62
[2016-06-27 04:00] VITALS: BP 126/66
[2016-06-27] MEDS: CATHETER FLUSH 10 ML SYR IV SCH ×3 (05:00→20:27)
[2016-06-27 05:22] LABS: MEAN PLATELET VOLUME 11.1 FL (7.4-10.4); RED BLOOD COUNT 4.26 10^6/uL (4.35-5.85); RED CELL DISTRIBUTION WIDTH 12.8 % (10.0-14.5); WHITE BLOOD COUNT 6.3 10^3/uL (4.3-11.0)
[2016-06-27 05:40] LABS: CALCIUM 8.1 MG/DL (8.5-10.1); CREATININE SERUM 1.37 MG/DL (0.60-1.30)
[2016-06-27 08:16] VITALS: BP 128/62
[2016-06-27] MEDS: PANTOPRAZOLE 40 MG/10 ML (PROTONIX) VIAL IV SCH ×2 (08:26→20:25)
[2016-06-27] MEDS: cefTRIAXone INJECTION 1,000 MG in NORMAL SALINE (BAXTER MINI) 50 ML IV SCH (08:26)
[2016-06-27] MEDS: ASPIRIN 325 MG (5 GR) TABLET PO SCH (08:27)
[2016-06-27] MEDS: NS IV 1000 ML 1,000 ML IV SCH ×2 (08:28→12:48)
[2016-06-27] MEDS: DORZOLAMIDE 2% 10 ML BTL (TRUSOPT) OU SCH ×2 (08:28→20:26)
--- NOTE | 2016-06-27 09:04 | Progress Note (SOAP) ---
Subjective Subjective/Events-last exam patient still has some confusion. 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 Patient knows that on the physician. According to family member patient used to work and still works. Patient had hypoglycemia at home. Patient has confusion and weakness. Patient has history of hypertension,, coronary artery disease. Patient has history of TIA area Global encephalopathy. Patient last night had confusion. Patient a known diabetic on insulin Objective Exam Vital Signs Date Time Temp Pulse Resp B/P Pulse Ox O2 Delivery O2 Flow Rate FiO2 06/27/16 08:16 97.9 68 18 128/62 97 Room Air 06/27/16 04:00 98.7 72 19 126/66 98 Room Air 06/27/16 00:00 96.3 65 18 134/62 95 Room Air 06/26/16 21:45 Room Air 06/26/16 20:55 98.4 70 16 159/62 97 Room Air 06/26/16 15:50 98.1 66 16 144/69 94 Room Air 06/26/16 12:00 97.9 67 18 156/66 98 Room Air I & O 06/27/16 07:00 Intake Total 1990 ml Output Total 1100 ml Balance 890 ml Capillary Refill : NONELess Than 3 Seconds General Appearance: No Apparent Distress WD/WN Other (fusion) HEENT: Normal ENT Inspection Neck: Normal Inspection Respiratory: Chest Non Tender Lungs Clear Normal Breath Sounds No Accessory Muscle Use No Respiratory Distress Cardiovascular: Regular Rate, Rhythm No Murmur Gastrointestinal: non tender soft Results Lab Laboratory Tests 06/26/16 10:13: Glucometer 155H 06/26/16 12:14: Glucometer 233H 06/26/16 15:08: Glucometer 237H 06/26/16 15:59: Glucometer 242H 06/26/16 18:03: Glucometer 209H 06/26/16 20:32: Glucometer 193H 06/26/16 22:15: Glucometer 165H 06/26/16 23:52: Glucometer 166H 06/27/16 02:01: Glucometer 164H 06/27/16 04:06: Glucometer 144H 06/27/16 04:45: Anion Gap 6, BUN/Creatinine Ratio 13, Blood Urea Nitrogen 18, Calcium Level 8.1L , Carbon Dioxide Level 23, Chloride Level 112H, Creatinine 1.37H, Estimat Glomerular Filtration Rate 49, Glucose Level 139H, Hematocrit 39L, Hemoglobin 12.9L, Mean Corpuscular Hemoglobin 30, Mean Corpuscular Hemoglobin Concent 33, Mean Corpuscular Volume 91, Mean Platelet Volume 11.1H, Platelet Count 122L, Potassium Level 4.0, Red Blood Count 4.26L, Red Cell Distribution Width 12.8, Sodium Level 141, White Blood Count 6.3 06/27/16 06:22: Glucometer 137H 06/27/16 08:32: Glucometer 123H Microbiology 06/25/16 Blood Culture - Preliminary, Resulted No growth Assessment/Plan Assessment/Plan Assess & Plan/Chief Complaint hypoglycemia. Confusion. Weakness. Global encephalopathy. Diabetes. History of hypertension, coronary artery disease and TIA. Diagnosis/Problems: Clinical Quality Measures DVT/VTE Risk/Contraindication: Risk Factor Score Per Nursin RFS Level Per Nursing on Admit: 4+=Very High MARRY TAYLOR DO Jun 27, 2016 09:04
[2016-06-27 09:39] LABS: ALBUMIN 3.3 G/DL (3.2-4.5); BILIRUBIN,DIRECT 0.4 MG/DL (0.0-0.3); BILIRUBIN,INDIRECT 0.6 MG/DL; TOTAL PROTEIN 5.9 G/DL (6.4-8.2)
[2016-06-27] MEDS: DOXYCYCLINE 100 MG (VIBRAMYCIN) TABLET PO SCH ×2 (10:17→16:52)
--- NOTE | 2016-06-27 10:50 | Physical Therapy Daily Note ---
PT Daily Note-Current Subjective Pt agreeable and denies pain. Pt daughter present. Mental Status Patient Orientation: Person, Place Attachments: Smith Catheter, IV Transfers Functional [place] Measure 0=Not Assessed/NA 4=Minimal Assistance 1=Total Assistance 5=Supervision or Setup 2=Maximal Assistance 6=Modified [place] 3=Moderate Assistance 7=Complete IndependenceIRFPAI Quality Coding Scale 6 Independent with activity with or without an assistive device 5 Patient requires set up or clean up by helper. Patient completes activity by themselves 4 Supervision or touching assist (CGA). [place] provide cues , steadying assist 3 The helper provides less than half the effort to complete the activity 2 The helper provides more than half the effort to complete the activity 1 Dependent. The helper does all the effort to complete an activity 7 Patient refused to complete or attempt activity 9 The patient did not perform the activity before the current illness or injury 88 Not attempted due to Medical conditions or safety concerns Bed mobility and transfer out of bed min A. Sit to stand CGA and steady in standing. Gait Training Gait Assistive Device: FWW Pt amb with FWW and f/u of IV x 300ft at steady speed. One episode of unsteadiness, self righted when pt wheel on FWW caught a chair. Assessment Current Status: Good Progress PT back to bed per request with call light in reach and all needs met. Ambu alarm activated and daughter present. PT Physician Extender Goals Physician Extender Goals PT Residential Goals Time Frame: Jul 03, 2016 Transfers (B,C,W/C) (FIM): 5 Gait (FIM): 5 Gait distance (FIM): 3=150 ft Gait Assistive Device: FWW PT Plan Treatment/Plan Treatment Plan: Continue Plan of Care Treatment Plan: Bed Mobility, Education, Functional Activity Santosh, Functional Strength, Gait, Safety, Therapeutic Exercise, Transfers Treatment Duration: Jul 03, 2016 Visits Per Week: 5-6 Time/GCodes Time In: 905 Time Out: 930 Total Billed Treatment Time: 25 Total Billed Treatment 1, gait 25 min KIKO VANN CPTA Jun 27, 2016 10:50
[2016-06-27 12:00] VITALS: BP 134/66
[2016-06-27 16:00] VITALS: BP 138/69
[2016-06-27] MEDS: ENOXAPARIN 40 MG/0.4 ML (LOVENOX) SYR SC SCH (18:00)
[2016-06-27 20:00] VITALS: BP 131/65
[2016-06-27] MEDS: LATANOPROST 0.005% (XALATAN) OPHTH SOLN 2.5 ML OU SCH (20:27)
[2016-06-28] VITALS: BP 150/69
[2016-06-28] MEDS: NS IV 1000 ML 1,000 ML IV SCH ×2 (02:47→16:35)
[2016-06-28 04:00] VITALS: BP 158/81
[2016-06-28 05:31] LABS: MEAN PLATELET VOLUME 11.1 FL (7.4-10.4); RED BLOOD COUNT 4.12 10^6/uL (4.35-5.85); RED CELL DISTRIBUTION WIDTH 12.7 % (10.0-14.5); WHITE BLOOD COUNT 5.8 10^3/uL (4.3-11.0)
[2016-06-28] MEDS: DOXYCYCLINE 100 MG (VIBRAMYCIN) TABLET PO SCH ×2 (05:53→16:36)
[2016-06-28] MEDS: CATHETER FLUSH 10 ML SYR IV SCH ×3 (05:54→20:16)
[2016-06-28 05:55] LABS: CALCIUM 8.2 MG/DL (8.5-10.1); CREATININE SERUM 1.28 MG/DL (0.60-1.30); POTASSIUM 4.1 MMOL/L (3.6-5.0)
[2016-06-28] MEDS: ASPIRIN 325 MG (5 GR) TABLET PO SCH (08:24)
[2016-06-28] MEDS: cefTRIAXone INJECTION 1,000 MG in NORMAL SALINE (BAXTER MINI) 50 ML IV SCH (08:25)
[2016-06-28] MEDS: PANTOPRAZOLE 40 MG/10 ML (PROTONIX) VIAL IV SCH ×2 (08:25→20:16)
[2016-06-28] MEDS: DORZOLAMIDE 2% 10 ML BTL (TRUSOPT) OU SCH ×2 (08:25→20:16)
[2016-06-28 08:36] VITALS: BP 152/76
--- NOTE | 2016-06-28 09:29 | Progress Note (SOAP) ---
Subjective Subjective/Events-last exam patient is doing better and less confused today. Hypoglycemia. Global encephalopathy. Diabetes. To take his catheter out. Patient less confused and more talkative Objective Exam Vital Signs Date Time Temp Pulse Resp B/P Pulse Ox O2 Delivery O2 Flow Rate FiO2 06/28/16 08:36 98.2 68 18 152/76 97 Room Air 06/28/16 04:00 98.1 60 19 158/81 96 Room Air 06/28/16 00:00 97.3 64 18 150/69 93 Room Air 06/27/16 21:00 Room Air 06/27/16 20:00 97.5 110 18 131/65 95 Room Air 06/27/16 16:00 97.5 62 18 138/69 97 Room Air 06/27/16 12:00 98.2 74 18 134/66 98 Room Air 06/27/16 10:07 98 Room Air I & O 06/28/16 07:00 Intake Total 2590 ml Output Total 1050 ml Balance 1540 ml Capillary Refill : NONELess Than 3 Seconds General Appearance: No Apparent Distress WD/WN HEENT: Normal ENT Inspection Neck: Normal Inspection Respiratory: Chest Non Tender No Accessory Muscle Use No Respiratory Distress Cardiovascular: Regular Rate, Rhythm No Murmur Gastrointestinal: soft Results Lab Laboratory Tests 06/28/16 05:10 Laboratory Tests 06/27/16 10:27: Glucometer 117H 06/27/16 15:35: Glucometer 186H 06/27/16 17:58: Glucometer 171H 06/27/16 19:58: Glucometer 169H 06/27/16 22:15: Glucometer 158H 06/27/16 23:48: Glucometer 154H 06/28/16 01:54: Glucometer 126H 06/28/16 03:48: Glucometer 138H 06/28/16 05:10: Anion Gap 7, BUN/Creatinine Ratio 16, Blood Urea Nitrogen 20H, Calcium Level 8.2L, Carbon Dioxide Level 21, Chloride Level 111H, Creatinine 1.28, Estimat Glomerular Filtration Rate 53, Glucose Level 131H, Hematocrit 37L, Hemoglobin 12.5L, Mean Corpuscular Hemoglobin 30, Mean Corpuscular Hemoglobin Concent 34, Mean Corpuscular Volume 91, Mean Platelet Volume 11.1H, Platelet Count 120L, Potassium Level 4.1, Red Blood Count 4.12L, Red Cell Distribution Width 12.7, Sodium Level 139, White Blood Count 5.8 06/28/16 05:50: Glucometer 135H 06/28/16 07:56: Glucometer 132H Microbiology 06/25/16 Blood Culture - Preliminary, Resulted No growth Assessment/Plan Assessment/Plan Assess & Plan/Chief Complaint hypoglycemia. Confusion. Weakness. Global encephalopathy. Diabetes. History of hypertension, coronary artery disease and TIA.. . 06/28/16. Hypoglycemia resolved. Confusion improving. Weakness. Global encephalopathy. Diabetes. History of hypertension. History of coronary artery disease and TIA Diagnosis/Problems: Clinical Quality Measures DVT/VTE Risk/Contraindication: Risk Factor Score Per Nursin RFS Level Per Nursing on Admit: 4+=Very High MARRY TAYLOR DO Jun 28, 2016 09:29
[2016-06-28 12:38] VITALS: BP 146/72
[2016-06-28 16:44] VITALS: BP 142/62
[2016-06-28] MEDS: ENOXAPARIN 40 MG/0.4 ML (LOVENOX) SYR SC SCH (18:31)
[2016-06-28 19:50] VITALS: BP 151/71
[2016-06-28] MEDS: LATANOPROST 0.005% (XALATAN) OPHTH SOLN 2.5 ML OU SCH (20:17)
[2016-06-29] VITALS: BP 152/69
[2016-06-29 04:00] VITALS: BP 133/75
[2016-06-29] MEDS: NS IV 1000 ML 1,000 ML IV SCH ×2 (05:33→19:56)
[2016-06-29] MEDS: DOXYCYCLINE 100 MG (VIBRAMYCIN) TABLET PO SCH ×2 (05:33→17:21)
[2016-06-29] MEDS: CATHETER FLUSH 10 ML SYR IV SCH ×3 (05:33→19:56)
[2016-06-29 06:48] LABS: MEAN PLATELET VOLUME 11.3 FL (7.4-10.4); RED BLOOD COUNT 4.08 10^6/uL (4.35-5.85); RED CELL DISTRIBUTION WIDTH 12.6 % (10.0-14.5); WHITE BLOOD COUNT 5.5 10^3/uL (4.3-11.0)
[2016-06-29 07:07] LABS: ALBUMIN 3.3 G/DL (3.2-4.5); BILIRUBIN,DIRECT 0.4 MG/DL (0.0-0.3); BILIRUBIN,INDIRECT 0.8 MG/DL; BILIRUBIN,TOTAL 1.2 MG/DL (0.1-1.0); CALCIUM 8.4 MG/DL (8.5-10.1); CREATININE SERUM 1.27 MG/DL (0.60-1.30); POTASSIUM 3.9 MMOL/L (3.6-5.0)
[2016-06-29 08:00] VITALS: BP 160/78
--- NOTE | 2016-06-29 08:18 | ECHOCARDIOGRAPHY REPORT ---
PROCEDURE PHYSICIAN: ROX RUELAS DATE OF PROCEDURE: 06/26/2016 TWO DIMENSIONAL ECHOCARDIOGRAM REPORT PRIMARY PHYSICIAN: OTHER PHYSICIAN: REFERRING PHYSICIAN: ORDERING PHYSICIAN: Dr. Heath INDICATION FOR THE PROCEDURE: Hypoglycemia. MEASUREMENTS DERIVED VALUES LV DIAMETER (LAX) NORMALS NORMALS Diastolic 4.5 (3.6-5.2) Eject. Fract. (60%+/-6%) Systolic (2.3-3.9) Diastolic Vol. % Shortening (0.22-0.42) Systolic Vol. Aortic Root 2.6 IVS THICKNESS Diastolic 1 (0.6-1.1) LVPW THICKNESS Diastolic 1.1 (0.6-1.1) LA DIAMETER Systolic 4.3 (2.1-3.7) DESCRIPTION: Two-dimensional echocardiography shows well preserved global left ventricular systolic function without distinct regional wall motion abnormality. Left ventricular ejection fraction is approximately 65%. Aortic, mitral and tricuspid valve leaflets show good leaflet excursion. There is no significant pericardial effusion. Doppler imaging did not show significant valvular regurgitation or stenosis. There mitral annular calcification with mild aortic valve sclerosis with no Doppler evidence of significant valvular stenosis. Pulmonary artery systolic pressure is estimated to be approximately 35 mmHg. Good apical and subcostal views are not available. CONCLUSIONS: 1. Technically difficult study. 2. Normal global left ventricular systolic function with an ejection fraction of approximately 65%. 3. Mild mitral annular calcification and aortic valve sclerosis without evidence of significant valvular stenosis or regurgitation. 4. Pulmonary artery systolic pressure is estimated to be approximately 35. Job ID: [id number] Dictated Date: 06/28/2016 13:27:53 Field Collector Date: 06/29/2016 08:08:55 / shreya WILLSON
[2016-06-29] MEDS: PANTOPRAZOLE 40 MG/10 ML (PROTONIX) VIAL IV SCH ×2 (08:48→19:56)
[2016-06-29] MEDS: lisINopril 5 MG (PRINIVIL) TABLET PO SCH (08:49)
[2016-06-29] MEDS: DORZOLAMIDE 2% 10 ML BTL (TRUSOPT) OU SCH ×2 (08:49→19:56)
[2016-06-29] MEDS: ASPIRIN 325 MG (5 GR) TABLET PO SCH (08:49)
[2016-06-29] MEDS: cefTRIAXone INJECTION 1,000 MG in NORMAL SALINE (BAXTER MINI) 50 ML IV SCH (08:49)
--- NOTE | 2016-06-29 10:24 | Physical Therapy Daily Note ---
PT Daily Note-Current Subjective Patient is in bed and alert today. Agrees to PT. Pain Numeric Pain Scale: 0-No Pain Location: No Pain Reported Mental Status Patient Orientation: Person, Time, Situation Attachments: IV Transfers Functional [place] Measure 0=Not Assessed/NA 4=Minimal Assistance 1=Total Assistance 5=Supervision or Setup 2=Maximal Assistance 6=Modified [place] 3=Moderate Assistance 7=Complete IndependenceIRFPAI Quality Coding Scale 6 Independent with activity with or without an assistive device 5 Patient requires set up or clean up by helper. Patient completes activity by themselves 4 Supervision or touching assist (CGA). [place] provide cues , steadying assist 3 The helper provides less than half the effort to complete the activity 2 The helper provides more than half the effort to complete the activity 1 Dependent. The helper does all the effort to complete an activity 7 Patient refused to complete or attempt activity 9 The patient did not perform the activity before the current illness or injury 88 Not attempted due to Medical conditions or safety concerns Transfers (B, C, W/C) (FIM): 5 Scootin Rollin Supine to/from Sit: 5 Sit to/from Stand: 5 Bed to/from Chair: 5 SBA for safety due to slight confusion Gait Training Gait (FIM): 5 Distance (FIM): 3=150 ft Distance: 600' Gait Level of Assist: 5 Gait Persons Needed: 1 Gait Assistive Device: FWW kyphotic posture; functional gait sequence with fluid movement Assessment Patient is up in recliner with chair alarm activated for safety concerns due to patient's confusion. Patient is improving and desires to return to home soon. PT Malt House Operator Goals Assisted Goals PT Malt House Operator Goals Time Frame: Jul 03, 2016 Transfers (B,C,W/C) (FIM): 5 (met 06/29/16) Gait (FIM): 5 (met 06/29/16) Gait distance (FIM): 3=150 ft Gait Assistive Device: FWW PT Plan Treatment/Plan Treatment Plan: Continue Plan of Care Treatment Plan: Bed Mobility, Education, Functional Activity [place], Functional Strength, Gait, Safety, Therapeutic Exercise, Transfers Treatment Duration: Jul 03, 2016 Visits Per Week: 5-6 Time/GCodes Time In: 1001 Time Out: 1016 Total Billed Treatment Time: 15 Total Billed Treatment 1 visit GT 15 min GUILLAUME WINTER PT Jun 29, 2016 10:23
--- NOTE | 2016-06-29 11:08 | Occupational Ther Daily Note ---
OT Current Status-Daily Note Subjective Pt alert, sitting in chair. Pt agreed to therapy though c/o being very tired. He stated that he hasn't slept for the last two nights. Mental Status/Objective Functional [place] Measure 0=Not Assessed/NA 4=Minimal Assistance 1=Total Assistance 5=Supervision or Setup 2=Maximal Assistance 6=Modified [place] 3=Moderate Assistance 7=Complete [place] Other Treatment Pt completed 3 UE exercises against gravity, 2 sets 20 reps. Pt tolerated exercises well though continued to fall asleep throughout exercises. After third exercise pt requested to stop and wanted to fall asleep. After therapy, pt sitting in recliner with feet up and reclined back. Call light/phone in reach. Safety measures in place. All needs met in room. OT Short Term Goals Short Term Goals 1=Demonstrate adherence to instructed precautions during ADL tasks. 2=Patient will verbalize/demonstrate understanding of assistive devices/ modifications for ADL. 3=Patient will improve strength/tolerance for activity to enable patient to perform ADL's. OT Control Area Operator Goals Residential Goals 1=Demonstrate adherence to instructed precautions during ADL tasks. 2=Patient will verbalize/demonstrate understanding of assistive devices/ modifications for ADL. 3=Patient will improve strength/tolerance for activity to enable patient to perform ADL's. OT Education/Plan Discharge Recommendations Plan/Recommendations: Continue POC Treatment Plan/Plan of Care Patient would benefit from OT for education, treatment and training to promote independence in ADL's, mobility, safety and/or upper extremity function for ADL' s. Plan of Care: ADL Retraining, Functional Mobility, UE Funct Exercise/Act Agreement: Yes Rehab Potential: Fair Time/GCodes Start Time: 10:30 Stop Time: 10:45 Total Time Billed (hr/min): 15 Billed Treatment Time 1 visit-EX 1 (15 min) BRYNN WHITMAN Jun 29, 2016 11:08
[2016-06-29 14:46] LABS: EHRLICHIA CHAFFEENSIS G ABY <1:16 (<1:16)
[2016-06-29] MEDS ORDERED: diphenhydrAMINE 50 MG/ML INJ (BENADRYL) ONE (14:52)
[2016-06-29 15:20] VITALS: BP 123/53
--- NOTE | 2016-06-29 17:09 | Progress Note (SOAP) ---
Subjective Subjective/Events-last exam pt reports that he is wanting to go home today, however staff reports that the patient has been confused off and on over the past few days, so badly that he was pulling on his lines and standing almost unclothed in the doorway of his room. Review of Systems General: Fatigue HEENT: No Head Aches, No Visual Changes Pulmonary: No Dyspnea, No Cough Cardiovascular: No: Chest Pain, Palpitations Gastrointestinal: No: Nausea Genitourinary: Frequency Musculoskeletal: : neck pain Neurological: : Confusion: Weakness Objective Exam Vital Signs Date Time Temp Pulse Resp B/P Pulse Ox O2 Delivery O2 Flow Rate FiO2 06/29/16 09:00 96 Room Air 06/29/16 08:00 99.2 69 20 160/78 96 Room Air 06/29/16 04:00 98.3 69 18 133/75 94 Room Air 06/29/16 00:00 99.0 65 18 152/69 98 Room Air 06/28/16 21:00 Room Air 06/28/16 19:50 99.2 65 18 151/71 97 Room Air I & O 06/29/16 07:00 Intake Total 3370 ml Output Total 1950 ml Balance 1420 ml Capillary Refill : Less Than 3 SecondsLess Than 3 Seconds General Appearance: No Apparent Distress WD/WN HEENT: Pharynx Normal Respiratory: Chest Non Tender Lungs Clear Normal Breath Sounds Cardiovascular: Regular Rate, Rhythm Gastrointestinal: normal bowel sounds non tender soft no organomegaly no pulsatile mass Extremity: No Calf Tenderness Pedal Edema Neurologic/Psychiatric: Alert No Motor/Sensory Deficits Normal Mood/Affect Other (oriented to person, place) Skin: Warm/Dry Lymphatic: No Adenopathy Results Lab Laboratory Tests 06/28/16 20:48: Glucometer 142H 06/29/16 05:45: Alanine Aminotransferase (ALT/SGPT) 28, Albumin 3.3, Alkaline Phosphatase 81, Anion Gap 8, Aspartate Amino Transf (AST/SGOT) 43H, BUN/Creatinine Ratio 14, Blood Urea Nitrogen 18, Calcium Level 8.4L, Carbon Dioxide Level 22, Chloride Level 110H, Creatinine 1.27, Direct Bilirubin 0.4H, Estimat Glomerular Filtration Rate 54, Glucose Level 119H, Hematocrit 37L, Hemoglobin 12.4L, Indirect Bilirubin 0.8, Mean Corpuscular Hemoglobin 30, Mean Corpuscular Hemoglobin Concent 34, Mean Corpuscular Volume 90, Mean Platelet Volume 11.3H, Platelet Count 128L, Potassium Level 3.9, Red Blood Count 4.08L, Red Cell Distribution Width 12.6, Sodium Level 140, Total Bilirubin 1.2H, Total Protein 6.0L, White Blood Count 5.5 06/29/16 11:13: Glucometer 127H 06/29/16 16:09: Glucometer 109 Microbiology 06/25/16 Blood Culture - Preliminary, Resulted No growth Assessment/Plan Assessment/Plan Assess & Plan/Chief Complaint HYPOGLYCEMIA CONFUSION WEAKNESS HYPERTENSION HX CORONARY ARTERY DISEASE HX OF TIA FEVER GLOBAL ENCEPHALOPATHY HYPOGLYCEMIA - RESOLVED CONFUSION WITH GLOBAL ENCEPHALOPATHY - UNABLE TO CHECK MRI OF BRAIN DUE TO PT INABILITY TO MOVE NECK INTO A POSITION SO THAT HIS HEAD CAN FIT INTO THE MRI MACHINE - WAITING ON REPORT FROM CAROTID ULTRASOUND AND ECHO CT OF HEAD NEGATIVE. PT HAS CLEARING OF SENSORIUM TODAY COMPARED TO THE WEEKEND - RECOMMENDED PT TO HAVE ANOTHER DAY IN THE HOSPITAL, MAY BE ABLE TO DISCHARGE ON WEDNESDAY. WEAKNESS - MONITOR -AND START PT/OT HYPERTENSION - RESTART ORAL MEDS FROM HOME HX CORONARY ARTERY DISEASE HX OF TIA CAROTID STENOSIS - WILL DO OUTPATIENT REFERRAL TO CARDIOVASCULAR SURGEON. - START ON PLAVIX, START ON STATIN. FEVER - GIVE PRN TYLENOL Diagnosis/Problems: Clinical Quality Measures DVT/VTE Risk/Contraindication: Risk Factor Score Per Nursin RFS Level Per Nursing on Admit: 4+=Very High FAM PALMER MD Jun 29, 2016 17:09
[2016-06-29] MEDS: ENOXAPARIN 40 MG/0.4 ML (LOVENOX) SYR SC SCH (17:21)
[2016-06-29] MEDS: LATANOPROST 0.005% (XALATAN) OPHTH SOLN 2.5 ML OU SCH (19:56)
[2016-06-29] MEDS ORDERED: ATORVASTATIN 40 MG (LIPITOR) TABLET PO SCH (21:00)
[2016-06-30 00:15] VITALS: BP 135/75
[2016-06-30] MEDS: CATHETER FLUSH 10 ML SYR IV SCH (06:44)
[2016-06-30] MEDS: DOXYCYCLINE 100 MG (VIBRAMYCIN) TABLET PO SCH (06:44)
[2016-06-30 07:22] LABS: IGG ROCKY MOUNTAIN SPOTTED FEV <1:16 (<1:16); IGM ROCKY MOUNTAIN SPOTTED FEV <1:10 (<1:10); TULAREMIA ANTIBODY <1:20
[2016-06-30 08:00] VITALS: BP 150/70
[2016-06-30] MEDS: PANTOPRAZOLE 40 MG/10 ML (PROTONIX) VIAL IV SCH ×2 (08:25→09:00)
[2016-06-30] MEDS: ASPIRIN 325 MG (5 GR) TABLET PO SCH (08:25)
[2016-06-30] MEDS: cefTRIAXone INJECTION 1,000 MG in NORMAL SALINE (BAXTER MINI) 50 ML IV SCH ×2 (08:25→09:00)
[2016-06-30] MEDS: DORZOLAMIDE 2% 10 ML BTL (TRUSOPT) OU SCH (08:26)
[2016-06-30] MEDS: lisINopril 5 MG (PRINIVIL) TABLET PO SCH (08:26)
[2016-06-30] MEDS ORDERED: CLOPIDOGREL 75 MG (PLAVIX) TABLET PO SCH (09:00)
[2016-06-30] MEDS ORDERED: LIDOCAINE 1% INJ 20 ML (XYLOCAINE) VIAL INJ NR (09:30)
[2016-06-30] MEDS ORDERED: cefTRIAXone 1 GM (ROCEPHIN) VIAL IM NR (09:30)
--- NOTE | 2016-06-30 09:33 | Discharge Summary ---
Diagnosis/Chief Complaint Date of Admission Jun 25, 2016 at 18:13 Date of Discharge 06/30/16 Admission Diagnosis Admission Diagnosis HYPOGLYCEMIA CONFUSION WEAKNESS HYPERTENSION HX CORONARY ARTERY DISEASE HX OF TIA FEVER GLOBAL ENCEPHALOPATHY Discharge Diagnosis HYPOGLYCEMIA CONFUSION WEAKNESS HYPERTENSION HX CORONARY ARTERY DISEASE HX OF TIA FEVER GLOBAL ENCEPHALOPATHY Reason Hospital Visit PT IS AN 85 Y/O MALE WHO IS KNOWN TO ME FROM CLINIC. THE PATIENT IS NOT ABLE TO PARTICIPATE IN THE HPI. WHEN I ASKED THE PATIENT IF HE KNEW WHO I WAS, HE SAID, "YES HONEY", THEN TRIED TO DRAW ME IN TO HIM, BUT WAS UNABLE TO ANSWER ANY OTHER QUESTIONS. THE PATIENT'S FAMILY WAS NOT IN THE ROOM WHEN I EXAMINED HIM AND THEREFORE HIS HPI INFORMATION IS TAKEN FROM THE EMERGENCY DEPARTMENT RECORD. PT HAD A FSBS OF 118 AT HOME LAST NIGHT, DID NOT AWAKEN THIS MORNING WHEN ALARM WENT OFF - FAMILY CALLED EMS AND PT'S BLOOD SUGAR WAS 24 ON EMS ARRIVAL AT HOME, 1 AMP D- 50 GIVEN BY EMS. WHEN PT ARRIVED TO THE ER BLOOD SUGAR 196, STROKE ACTIVATION DONE AT 1048 CT SCAN WAS NEGATIVE FOR ACUTE STROKE. PT UNABLE TO ANSWER QUESTIONS- WORD SALAD AT TIMES, REPETITIVE ANSWER OF "YES HONEY." I ATTEMPTED TO CALL THE PATIENT'S DAUGHTER, BUT THE FAMILY NEVER ANSWERED THE PHONE. Discharge Summary Discharge Physical Examination Allergies: Coded Allergies: No Known Drug Allergies (Unverified , 11/25/12) Vitals & I&Os General Appearance: Alert, Oriented X3, Cooperative HEENT: Atraumatic, PERRLA, Mucous Memb Moist/[place] Respiratory: Clear to Auscultation, Normal Air Movement Cardiovascular: Regular Rate Abdominal: Normal Bowel Sounds, Soft, No Tenderness Extremities: No Clubbing Skin: No Rashes, No Significant Lesion Neuro: Strength at 5/5 X4 Ext, Cranial Nerves 3-12 NL Psych/Mental Status: Mental Status NL, Mood NL Hospital Course HYPOGLYCEMIA CONFUSION WEAKNESS HYPERTENSION HX CORONARY ARTERY DISEASE HX OF TIA FEVER GLOBAL ENCEPHALOPATHY HYPOGLYCEMIA - RESOLVED CONFUSION WITH GLOBAL ENCEPHALOPATHY - UNABLE TO CHECK MRI OF BRAIN DUE TO PT INABILITY TO MOVE NECK INTO A POSITION SO THAT HIS HEAD CAN FIT INTO THE MRI MACHINE - WAITING ON REPORT FROM CAROTID ULTRASOUND AND ECHO CT OF HEAD NEGATIVE. PT HAS CLEARING OF SENSORIUM TODAY COMPARED TO THE WEEKEND - RECOMMENDED PT TO HAVE ANOTHER DAY IN THE HOSPITAL, WEAKNESS - IMPROVED ON PT/OT HYPERTENSION - RESTARTED ORAL MEDS FROM HOME HX CORONARY ARTERY DISEASE HX OF TIA CAROTID STENOSIS - WILL DO OUTPATIENT REFERRAL TO CARDIOVASCULAR SURGEON. - STARTED ON PLAVIX, STARTED ON STATIN. FEVER - GIVE PRN TYLENOL Pending Labs Discharge Condition at discharge IMPROVED Instructions to patient/family Please see electonic discharge instructions given to patient. Discharge Medications Reviewed and agree with Discharge Medication list on patient's Discharge Instruction sheet Clinical Quality Measures DVT/VTE Risk/Contraindication: Risk Factor Score Per Nursin RFS Level Per Nursing on Admit: 4+=Very High FAM PALMER MD Jun 30, 2016 09:33
[2016-06-30] MEDS ORDERED: DOXY100T2 PO (09:35)
[2016-06-30] MEDS ORDERED: HUM100VI15 SQ (09:35)
--- NOTE | 2016-06-30 09:37 | Discharge Inst-Complex ---
PDI Med Rec & Follow Up Appt. New Medications: Doxycycline Hyclate (Doxycycline Hyclate) 100 Mg Tablet 100 MG PO BID@ #10 TAB Changed Medications: Insulin NPH Hum/Reg Insulin Hm (Novolin 70-30 100 Unit/ml Vial) 100 Unit/1 Ml Vial 20 UNIT SQ BID WITH MEALS #2 VIAL (Changed from: 30 UNIT; BID) Continued Medications: Acetaminophen/Diphenhydramine (Pain Relief Pm Caplet) 1 Each Tablet 1 TAB PO HS PRN PAIN TAB Aspirin (Aspirin) 325 Mg Tablet 325 MG PO DAILY TAB Dorzolamide HCl (Dorzolamide HCl) 10 Ml Drops 1 DROP OU BID DROPS Hypromellose (Pure & Gentle Eye Drops) 15 Ml Drops 1 DROP OU QID PRN DRY EYES DROPS Latanoprost (Latanoprost) 2.5 Ml Drops 1 DROP OU HS DROPS Lisinopril (Lisinopril) 5 Mg Tablet 2.5 MG PO DAILY TAKES 1/2 OF A (5 MG) TABLET TAB Prescription: Transmitted to Pharmacy Activity, Diet and PDI Resume Normal Activity: Yes Discharge Diet: ADA Diet Diet for 24 Hours: No Alcohol Drink 6-8 Glasses of Fluid/Day: Yes Driving Instructions: No Driving for 24 Hours Symptoms to Reoprt to : Appetite Changes, Fever Over 101 Degrees F, Pain/ Pressure in Chest, Shortness of Breath, Weight Gain Over 2 Pounds For Problems or Questions: Contact Your Physician, Go to Emergency Room FAM PALMER MD Jun 30, 2016 09:37
[2016-06-30] MEDS ORDERED: CLOP75TA28 PO (09:55)
[2016-06-30] MEDS ORDERED: ATOR40TA PO (09:55)
[2016-06-30 10:40] VITALS: BP 150/70
[2016-07-01 07:36] LABS: LYME ANTIBODY C 0.34 (0.00-0.90)
[2016-07-30] MEDS ORDERED: ASPI-586 PO (08:26)
== END 2016-06-30 10:40 | disposition home or self-care (01) | DRG 637 ==
LOC: EDUNIT# 10:46 → ER 10:48 → UNDOADMOB 12:38 → 4TH 12:38 → OBSVTOIN 18:06 → INTOOBSV 18:06 → OBSVTOIN 18:13
PROVIDERS: ADMIT Family Medicine; ATTEND Family Medicine
DX: E11.649 Type 2 diabetes mellitus with hypoglycemia without coma (principal); G93.41 Metabolic encephalopathy; I10 Essential (primary) hypertension; I25.10 Atherosclerotic heart disease of native coronary artery without angina pectoris; I65.23 Occlusion and stenosis of bilateral carotid arteries; Z66 Do not resuscitate; H40.9 Unspecified glaucoma; M19.91 Primary osteoarthritis, unspecified site; R53.1 Weakness; R50.9 Fever, unspecified; I25.2 Old myocardial infarction; Z79.4 Long term (current) use of insulin; Z86.73 Personal history of transient ischemic attack (TIA), and cerebral infarction without residual deficits; Z95.1 Presence of aortocoronary bypass graft; Z96.653 Presence of artificial knee joint, bilateral; Z86.718 Personal history of other venous thrombosis and embolism
CPT/HCPCS: 36415; 51702; 70450; 80048; 80053; 80076; 80320; 81000; 82962; 83605; 84443; 85025; 85027; 85652; 86141; 86618; 86666; 86668; 86757; 87040; 93005; 93306; 93880; 96361; 96374; G0378

== ENCOUNTER → 2016-07-24 | Outpatient (CLI) | payer MEDICARE ==
[~2016-07-24] MED LIST changes: +ASPI-586 PO; +ASPI-808 PO; +ATOR40TA PO; +CLOP75TA28 PO; -DEXTROSE 50% 50 ML (IMS) SYR ONE; +DORZ10DR2 OU; +DOXY100T2 PO; +HUM100VI15 SQ; +LATA2.5D5 OU; +LISI-556 PO; +[UNRECOGNIZED DRUG - CODE] OU; +[UNRECOGNIZED DRUG - CODE] PO
[2016-07-24 08:35] LABS: CREATININE SERUM 1.52 MG/DL (0.60-1.30)
== END ==
LOC: RAD 08:01
PROVIDERS: ATTEND Nurse Practitioner
DX: I65.23 Occlusion and stenosis of bilateral carotid arteries (principal); E11.9 Type 2 diabetes mellitus without complications; I10 Essential (primary) hypertension
CPT/HCPCS: 36415; 82565; 84520

== ENCOUNTER → 2016-07-30 | Outpatient (CLI) | payer MEDICARE ==
[~2016-07-30] VITALS: Ht 182.9 cm; Wt 94.0 kg
[~2016-07-30] MED LIST changes: +CATHETER FLUSH 10 ML SYR IV PRN; +IOHEXOL 350 MG/ML 100 ML (OMNIPAQUE 350) VIAL IV ONE; +NS 100 ML (IVPB) BAG IV ONE; +NS IV 1000 ML 1,000 ML ONE
[2016-07-30 08:45] VITALS: BP 167/74
[2016-07-30] MEDS: NS IV 1000 ML 1,000 ML IV SCH ×3 (08:45→16:12)
[2016-07-30 12:00] VITALS: BP 158/79
--- NOTE | 2016-07-30 13:26 | Diagnostic Imaging Report ---
PROCEDURE: CT angiography of the head and CT angiography of the neck with and without contrast. TECHNIQUE: Contiguous noncontrast images were obtained from the skull base through the vertex. After intravenous contrast administration, helical CT angiography of the neck was performed. Source data was reformatted into multiple MIP projections. Delayed post contrast acquisition was also obtained. INDICATION: Carotid artery stenosis suggested on the carotid ultrasound performed recently. 55 ML of Omnipaque 350 is administered intravenously. FINDINGS: CTA neck: There is atherosclerotic noncalcified plaque seen in the aortic arch away from the origin of the great vessels which demonstrate no significant abnormality. There is a proximal origin of the left vertebral artery from the left subclavian which is otherwise patent. The right vertebral artery also appears patent. The right subclavian artery demonstrates a calcified plaque at its origin with no significant stenosis. The brachiocephalic artery is patent. The right common carotid artery is patent. The right external carotid is also patent. There is a calcified plaque along the origin of the right internal carotid artery with no significant stenosis. The mid right ICA is particularly tortuous with no significant stenosis. The left common carotid artery is patent. The left ECA is patent. The left ICA demonstrates mild plaque at the origin of the vessel partially calcified with a noncalcified plaque in the proximal to mid segment without significant underlying stenosis. Significant tortuosity without significant plaque is seen in the mid left ICA level with 50% narrowing of the lumen at the angle of the tortuosity. 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 Correlate for underlying etiology such as ankylosing spondylitis or other abnormality. CTA head: The intracranial segments of the internal carotid arteries appear patent. There is only moderate degree of enhancement in the [place] which could obscure a subtle abnormality; however, no obvious significant stenosis, occlusion or aneurysm is identified. In the posterior circulation, there is a short segment focus of significant stenosis suggested within the right vertebral artery. Accurate assessment of the degree of stenosis is difficult due to the small size of the vessel. It is perhaps in the range of 50-70%. There is small caliber of the basilar artery without significant plaque or stenosis identified, however. The TUNNEL KILN OPERATOR on both sides appear also small but patent. The CT scan of the head portion without intravenous contrast demonstrates no intracranial hemorrhage. There are periventricular and deep white hypodensities compatible with chronic microvascular ischemic changes. No hydrocephalus. No extra-axial fluid collection is seen. There is mucosal thickening and large fluid level within the right maxillary sinus. Postcontrast parenchymal phase of the brain demonstrates no enhancing mass. IMPRESSION: CTA neck: 1. The increased velocities in the internal carotid arteries particularly on the left side on recent ultrasound is probably related to significant tortuosity in the course of the artery with no high-grade stenosis due to atherosclerotic disease seen. Only mild plaque is noted in the proximal ICA bilaterally. 2. Near complete opacification of the right maxillary sinus due to mucosal thickening, fluid and possible underlying polyp. The findings are similar to 02/26/16 CTA head: Estimated underlying stenosis from noncalcified plaque in the intracranial portion of the right vertebral artery estimated to be between 50-70%. There is otherwise no high-grade stenosis, occlusion or aneurysm seen. Dictated by: Dictated on workstation # [id number]
[2016-07-30 16:03] VITALS: BP 154/77
[2016-07-30 17:36] VITALS: BP 154/77
== END ==
LOC: RAD 07:26
PROVIDERS: ATTEND Nurse Practitioner
DX: I65.23 Occlusion and stenosis of bilateral carotid arteries (principal); E11.9 Type 2 diabetes mellitus without complications; I10 Essential (primary) hypertension
CPT/HCPCS: 36415; 70496; 70498; 82565; 82962; 96360; 96361

== ENCOUNTER 2017-07-24 02:24 | Observation (INO) | payer MEDICARE ==
[~2017-07-24] VITALS: Ht 182.9 cm; Wt 93.0 kg
[~2017-07-24 02:24] MED LIST changes: -CATHETER FLUSH 10 ML SYR IV PRN; -IOHEXOL 350 MG/ML 100 ML (OMNIPAQUE 350) VIAL IV ONE; -NS 100 ML (IVPB) BAG IV ONE; -NS IV 1000 ML 1,000 ML ONE
--- OUTSIDE RECORDS SUMMARY | 2017-07-24 02:32 | XMS REPORT | CCD ---
Author Author [facility] Organization [facility] Address [address] [place] [address] Phone Care Team Providers Care Director Of Litigation Name Role Phone PP Unavailable CCM Unavailable Summary Purpose Interface Exchange Insurance Providers Payer name Policy type / Coverage type Covered green party ID Effective Begin Date Effective End Date WPS Medicare Part B Medicare Part B [id number] Unknown Unknown Family history Daughter Diagnosis Age At Onset Cancer Unknown Social History Social History Element Codes Description Effective Dates Marital status Unknown Cici 03/24/2017 Number of children Unknown 3 12/10/[address]: 425344323 Never smoker 12/10/[address]: 666634497 Never drinks alcohol 12/10/2014 Allergies, Adverse Reactions, Alerts Allergies, Adverse Reactions, Alerts data not found Past Medical History Illness Codes Condition Status Onset Date Resolved Date Essential (primary) hypertension ICD-9: 401.9 ICD-10: I10 Active 05/18/2016 Unknown Other insomnia ICD-9: 327.09 ICD-10: G47.09 Active 06/23/2017 Unknown Type 2 diabetes mellitus without complications ICD-9: 250.00 ICD-10: E11.9 Active 05/18/2016 Unknown Dizziness and giddiness ICD-9: 780.4 ICD-10: R42 Active 03/24/2017 Unknown Unsteadiness on feet ICD-9: 781.2 ICD-10: R26.81 Active 09/08/2016 Unknown Encounter for immunization ICD-9: V04.81 ICD-10: Z23 Active 03/03/2016 Unknown Mixed hyperlipidemia ICD-9: 272.2 ICD-10: E78.2 Active 03/22/2016 Unknown Type 2 diabetes mellitus with hyperglycemia ICD-9: 250.02 ICD-10: E11.65 Active 02/26/2016 Unknown Type 2 diabetes mellitus with hypoglycemia without coma ICD-9: 250.80 ICD-10: E11.649 Active 12/24/2016 Unknown Muscle weakness (generalized) ICD-9: 728.87 ICD-10: M62.81 Active 03/04/2016 Unknown Encounter for general adult medical examination with abnormal findings ICD-9: V70.0 ICD-10: Z00.01 Active 08/25/2016 Unknown Occlusion and stenosis of bilateral carotid arteries ICD-9: 433.10 ICD-10: I65.23 Active 07/14/2016 Unknown Low back pain ICD-9: 724.2 ICD-10: M54.5 Active 03/22/2016 Unknown Pain in right leg ICD- 9: 729.5 ICD-10: M79.604 Active 03/04/2016 Unknown Acute recurrent maxillary sinusitis ICD-9: 461.0 ICD-10: J01.01 Active 02/26/2016 Unknown 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 ICD-9: V58.61 ICD-10: Z79.01 Active 10/15/2015 Unknown Cough ICD-9: 786.2 ICD-10: R05 Active 08/18/2015 Unknown Nausea with vomiting, unspecified ICD-9: 787.01 ICD-10: R11.2 Active 08/18/2015 Unknown Pneumonia, unspecified organism ICD-9: 486 ICD-10: J18.9 Active 08/18/2015 Unknown Acute embolism and thrombosis of unspecified deep veins of right lower extremity ICD-9: 453.40 ICD-10: I82.401 Active 06/30/2015 Unknown Pain in right hip ICD- 9: 719.45 ICD-10: M25.551 Active 06/30/2015 Unknown Constipation, unspecified ICD-9: 564.00 ICD-10: K59.00 Active 05/19/2015 Unknown Post-traumatic headache, unspecified, not intractable ICD-9: 339.20 ICD-10: G44.309 Active 04/25/2015 Unknown Diabetes Unknown Active 12/10/2014 Unknown Hypertension Unknown Active 12/10/2014 Unknown Diabetes mellitus out of control ICD-9: 250.02 Active 2014 Unknown ESSENTIAL HYPERTENSION ICD-9: 401.9 Active 12/09/2014 Unknown Problems Condition Codes Effective Dates Condition Status Essential (primary) hypertension ICD-9: 401.9 ICD-10: I10 05/18/2016 Active Other insomnia ICD-9: 327.09 ICD-10: G47.09 06/23/2017 Active Type 2 diabetes mellitus without complications ICD-9: 250.00 ICD-10: E11.9 05/18/2016 Active Dizziness and giddiness ICD-9: 780.4 ICD-10: R42 03/24/2017 Active Unsteadiness on feet ICD-9: 781.2 ICD-10: R26.81 09/08/2016 Active Encounter for immunization ICD-9: V04.81 ICD-10: Z23 03/03/2016 Active Mixed hyperlipidemia ICD-9: 272.2 ICD-10: E78.2 03/22/2016 Active Type 2 diabetes mellitus with hyperglycemia ICD-9: 250.02 ICD-10: E11.65 02/26/2016 Active Type 2 diabetes mellitus with hypoglycemia without coma ICD-9: 250.80 ICD-10: E11.649 12/24/2016 Active Muscle weakness (generalized) ICD-9: 728.87 ICD-10: M62.81 03/04/2016 Active Encounter for general adult medical examination with abnormal findings ICD-9: V70.0 ICD-10: Z00.01 08/25/2016 Active Occlusion and stenosis of bilateral carotid arteries ICD-9: 433.10 ICD-10: I65.23 07/14/2016 Active Low back pain ICD-9: 724.2 ICD-10: M54.5 03/22/2016 Active Pain in right leg ICD- 9: 729.5 ICD-10: M79.604 03/04/2016 Active Acute recurrent maxillary sinusitis ICD-9: 461.0 ICD-10: J01.01 02/26/2016 Active 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 ICD-9: V58.61 ICD-10: Z79.01 10/15/2015 Active Cough ICD-9: 786.2 ICD-10: R05 08/18/2015 Active Nausea with vomiting, unspecified ICD-9: 787.01 ICD-10: R11.2 08/18/2015 Active Pneumonia, unspecified organism ICD-9: 486 ICD-10: J18.9 08/18/2015 Active Acute embolism and thrombosis of unspecified deep veins of right lower extremity ICD-9: 453.40 ICD-10: I82.401 06/30/2015 Active Pain in right hip ICD- 9: 719.45 ICD-10: M25.551 06/30/2015 Active Constipation, unspecified ICD-9: 564.00 ICD-10: K59.00 05/19/2015 Active Post-traumatic headache, unspecified, not intractable ICD-9: 339.20 ICD-10: G44.309 04/25/2015 Active Diabetes Unknown 12/10/2014 Active Hypertension Unknown 12/10/2014 Active Diabetes mellitus out of control ICD-9: 250.02 12/09/2014 Active ESSENTIAL HYPERTENSION ICD-9: 401.9 12/09/2014 Active Medications Medication Codes Instructions Start Date Stop Date Status Fill Instructions Novolin 70/30 100 unit/mL subcutaneous solution RxNorm: 958750 25 Unit(s) SQ QAM 10 units at supper 06/23/2017 10/20/2017 Active Novolin 70/30 100 unit/mL subcutaneous solution RxNorm: 306072 25 Unit(s) SQ QAM 06/23/2017 06/22/2017 Inactive lisinopril 5 mg tablet RxNorm: 577645 1/2 Tablet(s) PO daily to protect his kidneys- Prescribed by the [place] 03/24/2017 No Stop Date Active Novolin 70/30 100 unit/mL subcutaneous solution RxNorm: 245105 23 Unit(s) SQ UD 10/06/2016 06/22/2017 Inactive 25 q am and 22 q pm Novolin 70/30 100 unit/mL subcutaneous solution RxNorm: 524394 23 Unit(s) SQ UD 09/08/2016 10/05/2016 Inactive 23 q am and 20 q pm Novolin 70/30 100 unit/mL subcutaneous solution RxNorm: 389595 20 Unit(s) SQ BID 08/11/2016 09/07/2016 Inactive Keflex 500 mg capsule RxNorm: 701683 1 Capsule(s) PO TID 201503/04/2016 Inactive Coumadin 5 mg tablet RxNorm: 300490 1 Tablet(s) PO daily 201512/22/2015 Inactive stop xarelto on 3rd day PT/INR ON WEDNESDAY AND WEDNESDAY Kenalog 40 mg/mL suspension for injection RxNorm: 4330726 1 Milliliter(s) Inj 08/19/2015 08/19/2015 Inactive promethazine 25 mg tablet RxNorm: 900305 1 Tablet(s) PO TID as needed nausea and vomitting 08/19/2015 09/17/2015 Inactive Phenergan 25 mg/mL injection solution RxNorm: 831504 1 Milliliter(s) Inj 08/19/2015 08/19/2015 Inactive ceftriaxone 500 mg solution for injection RxNorm: 7074926 Inj 08/19/2015 08/19/2015 Inactive cefdinir 300 mg capsule RxNorm: 746931 1 Capsule(s) PO BID 08/25/2015 Inactive Coumadin 5 mg tablet RxNorm: 517598 2 daily x 3 days then 1 daily there after. Tablet(s) PO 08/01/2015 10/15/2015 Inactive stop xarelto on 3rd day PT/INR ON WEDNESDAY AND WEDNESDAY Coumadin 5 mg tablet RxNorm: 407260 2 daily x 3 days then 1 daily there after. 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 Novolin 70/30 100 unit/mL subcutaneous solution RxNorm: 067772 35 Unit(s) SQ BID 05/20/2015 08/10/2016 Inactive meclizine 25 mg tablet RxNorm: 816473 1 Tablet(s) PO Q6 as needed vertigo 11/29/2014 01/27/2016 Inactive Aspirin Low Dose 81 mg tablet,delayed release RxNorm: 582628 1 Tablet(s) PO daily No Start Date Active latanoprost 0.005 % eye drops RxNorm: 152204 1 Drop(s) OPH daily No Start Date Active dorzolamide 2 % eye drops RxNorm: 101449 1 Drop(s) OPH daily No Start Date Active Novolin 70/30 100 unit/mL subcutaneous solution RxNorm: 000044 30 Unit(s) SQ BID No Start Date 05/19/2015 Inactive aspirin 81 mg tablet RxNorm: 604233 1 Tablet(s) PO daily No Start Date 06/30/2015 Inactive lisinopril 5 mg tablet RxNorm: 240809 1/2 Tablet(s) PO daily No Start Date 08/11/2016 Inactive meclizine 25 mg tablet RxNorm: 832547 1 Tablet(s) PO Q6 as needed vertigo No Start Date 11/28/2014 Inactive lisinopril 5 mg tablet RxNorm: 920756 1 Tablet(s) PO daily No Start Date 04/25/2015 Inactive Medication Administered Medication Codes Instructions Start Date Status Phenergan 25 mg/mL injection solution RxNorm: 338441 1Milliliter 08/19/2015 No longer Active Kenalog 40 mg/mL suspension for injection RxNorm: 9368389 1Milliliter 08/19/2015 No longer Active ceftriaxone 500 mg solution for injection RxNorm: 6879433 08/19/2015 No longer Active Immunizations Vaccine Codes Date Status Influenza CVX: 141 02/17/2017 completed Influenza CVX: 141 03/04/2016 completed Pneumococcal CVX: 133 06/10/2015 completed Influenza CVX: 141 03/06/2015 completed Assessments Condition Codes Effective Dates Other insomnia ICD-10: G47.09 ICD-9: 327.09 06/23/2017 Essential (primary) hypertension ICD-10: I10 ICD-9: 401.9 06/23/2017 Type 2 diabetes mellitus without complications ICD-10: E11.9 ICD-9: 250.00 06/23/2017 Dizziness and giddiness ICD-10: R42 ICD-9: 780.4 03/24/2017 Unsteadiness on feet ICD-10: R26.81 ICD-9: 781.2 03/24/2017 Encounter for immunization ICD-10: Z23 ICD-9: V04.81 02/17/2017 Type 2 diabetes mellitus with hyperglycemia ICD-10: E11.65 ICD-9: 250.02 02/17/2017 Mixed hyperlipidemia ICD-10: E78.2 ICD-9: 272.2 02/17/2017 Type 2 diabetes mellitus with hypoglycemia without coma ICD- 10: E11.649 ICD-9: 250.80 12/24/2016 Muscle weakness (generalized) ICD-10: M62.81 ICD-9: 728.87 09/08/2016 Encounter for general adult medical examination with abnormal findings ICD-10: Z00.01 ICD-9: V70.0 08/25/2016 Occlusion and stenosis of bilateral carotid arteries ICD-10 : I65.23 ICD-9: 433.10 08/11/2016 Low back pain ICD-10: M54.5 ICD-9: 724.2 03/23/2016 Pain in right leg ICD-10: M79.604 ICD-9: 729.5 03/05/2016 Acute recurrent maxillary sinusitis ICD-10: J01.01 ICD-9: 461.0 02/27/2016 correction (current) use of anticoagulants ICD-10: Z79.01 ICD-9: V58.61 10/16/2015 Cough ICD-10: R05 ICD-9: 786.2 08/19/2015 Pneumonia, unspecified organism ICD-10: J18.9 ICD-9: 486 08/19/2015 Nausea with vomiting, unspecified ICD-10: R11.2 ICD-9: 787.01 08/19/2015 Acute embolism and thrombosis of unspecified deep veins of right lower extremity ICD-10: I82.401 ICD-9: 453.40 07/01/2015 Pain in right hip ICD-10: M25.551 ICD-9: 719.45 07/01/2015 Constipation, unspecified ICD-10: K59.00 ICD-9: 564.00 05/20/2015 Post-traumatic headache, unspecified, not intractable ICD-10 : G44.309 ICD-9: 339.20 04/26/2015 Diabetes mellitus out of control ICD-9: 250.02 12/10/2014 ESSENTIAL HYPERTENSION ICD-9: 401.9 12/10 Reason For Visit Reason For Visit Effective Dates Notes diabetes mellitus 06/23/2017 diabetes mellitus 03/24/2017 vaccination against influenza 02/17/2017 diabetes mellitus 12/24/2016 diabetes mellitus 11/10/2016 diabetes mellitus 10/06/2016 diabetes mellitus 09/08/2016 Annual Medicare Wellness Exam 08/25/2016 diabetes mellitus 08/11/2016 diabetes mellitus 07/14/2016 low back and leg pain 05/19/2016 low back and leg pain 03/23/2016 low back and leg pain 03/05/2016 vaccination against influenza 03/04/2016 diabetes mellitus 02/27/2016 diabetes mellitus 01/28/2016 diabetes mellitus 12/23/2015 fatigue 12/11/2015 diabetes mellitus 10/16/2015 DVT in right leg edema 08/19/2015 Hospital Follow Up 07/01/2015 diabetes mellitus 05/20/2015 headache 04/26/2015 vaccination against influenza 03/06/2015 diabetes mellitus 12/10/2014 Results Observation Observation Code Item Item Code Result Date %Hba1C Oux248 % HbA1c 85569-5 6.8 % 02/18/2017 %Hba1C Glz812 Gluc Ave 148 mg/dL 02/18/2017 Tsh Ord6 hTSH II 0.99 uIU/mL 02/18/2017 Cbc With Differential Ord2 WBC 6.04 K/ul 02/18/2017 Cbc With Differential Ord2 RBC 4.82 M/ul 02/18/2017 Cbc With Differential Ord2 HGB 14.5 g/dl 02/18/2017 Cbc With Differential Ord2 Neut% 52.5 % 02/18/2017 Cbc With Differential Ord2 HCT 43.5 % 02/18/2017 Cbc With Differential Ord2 Lymph% 32.0 % 02/18/2017 Cbc With Differential Ord2 MCV 90.2 fl 02/18/2017 Cbc With Differential Ord2 MCH 30.1 pg 02/18/2017 Cbc With Differential Ord2 [place]% 11.4 % 02/18/2017 Cbc With Differential Ord2 Eos% 3.8 % 02/18/2017 Cbc With Differential Ord2 MCHC 33.3 pg 02/18/2017 Cbc With Differential Ord2 Baso% 0.3 % 02/18/2017 Cbc With Differential Ord2 PLT 158 K/ul 02/18/2017 Cbc With Differential Ord2 Neut ABS# 3.17 K/ul 02/18/2017 Cbc With Differential Ord2 RDW 13.4 % 02/18/2017 Cbc With Differential Ord2 Lymph ABS# 1.93 K/ul 02/18/2017 Cbc With Differential Ord2 [place] ABS# 0.7 K/ul 02/18/2017 Cbc With Differential Ord2 Eos ABS# 0.2 K/ul 02/18/2017 Cbc With Differential Ord2 Baso ABS# 0.0 K/ul 02/18/2017 Microalbumin Gzi271 MicroAlb 7.1 mg/dL 02/18/2017 Lipid Ord30 CHOL 124 mg/dL 02/18/2017 Lipid Ord30 HDL 31.0 mg/dl 02/18/2017 Lipid Ord30 TRIG 89 mg/dL 02/18/2017 Lipid Ord30 LDL 75 mg/dL 02/18/2017 Lipid Ord30 C/HDL 4.0 Ratio 02/18/2017 Comp Metabolic Ksb510 NA 141 mEq/L 02/18/2017 Comp Metabolic Wht122 K 4.3 mEq/L 02/18/2017 Comp Metabolic Rlv575 CL 107 mEq/L 02/18/2017 Comp Metabolic Jxf958 CO2 26.0 mEq/L 02/18/2017 Comp Metabolic Riq928 ANION GAP 12 02/18/2017 Comp Metabolic Enu935 GLUCOSE 47 mg/dL 02/18/2017 Comp Metabolic Zdx174 Creat 1.5 mg/dL 02/18/2017 Comp Metabolic Dpa769 eGFR 47 ml/min/1.73m2 02/18/2017 Comp Metabolic Ivn167 BUN 23 mg/dL 02/18/2017 Comp Metabolic Rzu048 B/C Ratio 15.2 Ratio 02/18/2017 Comp Metabolic Pss096 CALCIUM 8.9 mg/dL 02/18/2017 Comp Metabolic Crq201 ALK PHOS 79 U/L 02/18/2017 Comp Metabolic Kqi748 AST(SGOT) 21 U/L 02/18/2017 Comp Metabolic Jqv573 ALT(SGPT) 19 U/L 02/18/2017 Comp Metabolic Xag446 BILI T 1.1 mg/dL 02/18/2017 Comp Metabolic Uwt508 ALBUMIN 3.9 g/dL 02/18/2017 Comp Metabolic Tyx126 TPRO 6.7 g/dL 02/18/2017 Comp Metabolic Tcj987 GLOB 2.8 g/dL 02/18/2017 Comp Metabolic Jej308 A/G Ratio 1.4 Ratio 02/18/2017 Comp Metabolic Xkk358 Osmo 282 mOsmo 02/18/2017 Comp Metabolic Nlg973 NA 136 mEq/L 08/11/2016 Comp Metabolic Qrz455 K 4.3 mEq/L 08/11/2016 Comp Metabolic Dfl203 CL 103 mEq/L 08/11/2016 Comp Metabolic Tmb660 CO2 30.0 mEq/L 08/11/2016 Comp Metabolic Klb055 ANION GAP 7 08/11/2016 Comp Metabolic Vji630 GLUCOSE 303 mg/dL 08/11/2016 Comp Metabolic Yvu967 Creat 1.5 mg/dL 08/11/2016 Comp Metabolic Zpp885 eGFR 47 ml/min/1.73m2 08/11/2016 Comp Metabolic Mue991 BUN 21 mg/dL 08/11/2016 Comp Metabolic Vpl655 B/C Ratio 14.0 Ratio 08/11/2016 Comp Metabolic Zuc691 CALCIUM 9.3 mg/dL 08/11/2016 Comp Metabolic Lzx796 ALK PHOS 107 U/L 08/11/2016 Comp Metabolic Egg555 AST(SGOT) 20 U/L 08/11/2016 Comp Metabolic Ary373 ALT(SGPT) 25 U/L 08/11/2016 Comp Metabolic Epx914 BILI T 1.0 mg/dL 08/11/2016 Comp Metabolic Ttr986 ALBUMIN 4.0 g/dL 08/11/2016 Comp Metabolic Pbt288 TPRO 6.9 g/dL 08/11/2016 Comp Metabolic Dsy368 GLOB 2.9 g/dL 08/11/2016 Comp Metabolic Nnu828 A/G Ratio 1.4 Ratio 08/11/2016 Comp Metabolic Zxk346 Osmo 286 mOsmo 08/11/2016 %Hba1C Mlj137 % HbA1c 99312-6 7.1 % 08/11/2016 %Hba1C Vpx249 Gluc Ave 157 mg/dL 08/11/2016 Cbc With Differential Ord2 WBC 4.61 K/ul 08/11/2016 Cbc With Differential Ord2 RBC 4.74 M/ul 08/11/2016 Cbc With Differential Ord2 HGB 14.4 g/dl 08/11/2016 Cbc With Differential Ord2 HCT 43.1 % 08/11/2016 Cbc With Differential Ord2 Neut% 53.9 % 08/11/2016 Cbc With Differential Ord2 MCV 90.9 fl 08/11/2016 Cbc With Differential Ord2 Lymph% 32.3 % 08/11/2016 Cbc With Differential Ord2 MCH 30.4 pg 08/11/2016 Cbc With Differential Ord2 [place]% 9.3 % 08/11/2016 Cbc With Differential Ord2 MCHC 33.4 pg 08/11/2016 Cbc With Differential Ord2 Eos% 4.1 % 08/11/2016 Cbc With Differential Ord2 PLT 160 K/ul 08/11/2016 Cbc With Differential Ord2 Baso% 0.4 % 08/11/2016 Cbc With Differential Ord2 Neut ABS# 2.48 K/ul 08/11/2016 Cbc With Differential Ord2 RDW 13.2 % 08/11/2016 Cbc With Differential Ord2 Lymph ABS# 1.49 K/ul 08/11/2016 Cbc With Differential Ord2 [place] ABS# 0.4 K/ul 08/11/2016 Cbc With Differential Ord2 Eos ABS# 0.2 K/ul 08/11/2016 Cbc With Differential Ord2 Baso ABS# 0.0 K/ul 08/11/2016 Tsh Ord6 hTSH II 1.31 uIU/mL 03/24/2016 Comp Metabolic Tnc134 NA 139 mEq/L 03/24/2016 Comp Metabolic Jog932 K 4.4 mEq/L 03/24/2016 Comp Metabolic Iuj990 CL 105 mEq/L 03/24/2016 Comp Metabolic Tov904 CO2 30.0 mEq/L 03/24/2016 Comp Metabolic Jwe144 ANION GAP 8 03/24/2016 Comp Metabolic Jkv313 GLUCOSE 153 mg/dL 03/24/2016 Comp Metabolic Pvk405 Creat 1.5 mg/dL 03/24/2016 Comp Metabolic Ltn332 eGFR 49 ml/min/1.73m2 03/24/2016 Comp Metabolic Kuz164 BUN 20 mg/dL 03/24/2016 Comp Metabolic Mem038 B/C Ratio 13.8 Ratio 03/24/2016 Comp Metabolic Hag972 CALCIUM 9.5 mg/dL 03/24/2016 Comp Metabolic Rmk155 ALK PHOS 115 U/L 03/24/2016 Comp Metabolic Wjr415 AST(SGOT) 18 U/L 03/24/2016 Comp Metabolic Fwe151 ALT(SGPT) 17 U/L 03/24/2016 Comp Metabolic Mct805 BILI T 0.9 mg/dL 03/24/2016 Comp Metabolic Sii574 ALBUMIN 4.1 g/dL 03/24/2016 Comp Metabolic Gip182 TPRO 7.1 g/dL 03/24/2016 Comp Metabolic Cco733 GLOB 3.0 g/dL 03/24/2016 Comp Metabolic Qra666 A/G Ratio 1.4 Ratio 03/24/2016 Comp Metabolic Xqw607 Osmo 283 mOsmo 03/24/2016 Lipid Ord30 CHOL 126 mg/dL 03/24/2016 Lipid Ord30 HDL 29.0 mg/dl 03/24/2016 Lipid Ord30 TRIG 133 mg/dL 03/24/2016 Lipid Ord30 LDL 70 mg/dL 03/24/2016 Lipid Ord30 C/HDL 4.3 Ratio 03/24/2016 Microalbumin Gky262 MicroAlb 3.9 mg/dL 03/24/2016 %Hba1C Wcc099 % HbA1c 05531-9 6.7 % 03/24/2016 %Hba1C Bno542 Gluc Ave 146 mg/dL 03/24/2016 Cbc With Differential Ord2 WBC 4.58 K/ul 03/24/2016 Cbc With Differential Ord2 RBC 4.67 M/ul 03/24/2016 Cbc With Differential Ord2 HGB 14.4 g/dl 03/24/2016 Cbc With Differential Ord2 Neut% 38.0 % 03/24/2016 Cbc With Differential Ord2 HCT 42.7 % 03/24/2016 Cbc With Differential Ord2 MCV 91.4 fl 03/24/2016 Cbc With Differential Ord2 Lymph% 39.7 % 03/24/2016 Cbc With Differential Ord2 MCH 30.8 pg 03/24/2016 Cbc With Differential Ord2 [place]% 10.5 % 03/24/2016 Cbc With Differential Ord2 MCHC 33.7 pg 03/24/2016 Cbc With Differential Ord2 Eos% 11.1 % 03/24/2016 Cbc With Differential Ord2 PLT 178 K/ul 03/24/2016 Cbc With Differential Ord2 Baso% 0.7 % 03/24/2016 Cbc With Differential Ord2 RDW 13.1 % 03/24/2016 Cbc With Differential Ord2 Neut ABS# 1.74 K/ul 03/24/2016 Cbc With Differential Ord2 Lymph ABS# 1.82 K/ul 03/24/2016 Cbc With Differential Ord2 [place] ABS# 0.5 K/ul 03/24/2016 Cbc With Differential Ord2 Eos ABS# 0.5 K/ul 03/24/2016 Cbc With Differential Ord2 Baso ABS# 0.0 K/ul 03/24/2016 %Hba1C Tew346 % HbA1c 18943-5 6.4 % 12/24/2015 %Hba1C Qop375 Gluc Ave 137 mg/dL 12/24/2015 Cbc With Differential Ord2 WBC 4.88 K/ul 12/23/2015 Cbc With Differential Ord2 RBC 4.79 M/ul 12/23/2015 Cbc With Differential Ord2 HGB 14.9 g/dl 12/23/2015 Cbc With Differential Ord2 HCT 44.9 % 12/23/2015 Cbc With Differential Ord2 Neut% 46.2 % 12/23/2015 Cbc With Differential Ord2 MCV 93.7 fl 12/23/2015 Cbc With Differential Ord2 Lymph% 37.9 % 12/23/2015 Cbc With Differential Ord2 MCH 31.1 pg 12/23/2015 Cbc With Differential Ord2 [place]% 10.2 % 12/23/2015 Cbc With Differential Ord2 MCHC 33.2 pg 12/23/2015 Cbc With Differential Ord2 Eos% 5.3 % 12/23/2015 Cbc With Differential Ord2 PLT 184 K/ul 12/23/2015 Cbc With Differential Ord2 Baso% 0.4 % 12/23/2015 Cbc With Differential Ord2 RDW 13.6 % 12/23/2015 Cbc With Differential Ord2 Neut ABS# 2.25 K/ul 12/23/2015 Cbc With Differential Ord2 Lymph ABS# 1.85 K/ul 12/23/2015 Cbc With Differential Ord2 [place] ABS# 0.5 K/ul 12/23/2015 Cbc With Differential Ord2 Eos ABS# 0.3 K/ul 12/23/2015 Cbc With Differential Ord2 Baso ABS# 0.0 K/ul 12/23/2015 Comp Metabolic Bvp092 NA 138 mEq/L 12/23/2015 Comp Metabolic Rhs345 K 4.4 mEq/L 12/23/2015 Comp Metabolic Vys806 CL 105 mEq/L 12/23/2015 Comp Metabolic Dcc919 CO2 28.0 mEq/L 12/23/2015 Comp Metabolic Ujv496 ANION GAP 9 12/23/2015 Comp Metabolic Lwn799 GLUCOSE 109 mg/dL 12/23/2015 Comp Metabolic Hfq355 Creat 1.4 mg/dL 12/23/2015 Comp Metabolic Xsp886 eGFR 50 ml/min/1.73m2 12/23/2015 Comp Metabolic Ayi184 BUN 18 mg/dL 12/23/2015 Comp Metabolic Lrt292 B/C Ratio 12.8 Ratio 12/23/2015 Comp Metabolic Bja285 CALCIUM 9.5 mg/dL 12/23/2015 Comp Metabolic Moa204 ALK PHOS 81 U/L 12/23/2015 Comp Metabolic Zih259 AST(SGOT) 23 U/L 12/23/2015 Comp Metabolic Lkg539 ALT(SGPT) 18 U/L 12/23/2015 Comp Metabolic Skq363 BILI T 0.6 mg/dL 12/23/2015 Comp Metabolic Jlx365 ALBUMIN 4.1 g/dL 12/23/2015 Comp Metabolic Tma906 TPRO 7.1 g/dL 12/23/2015 Comp Metabolic Asy701 GLOB 3.0 g/dL 12/23/2015 Comp Metabolic Adb266 A/G Ratio 1.4 Ratio 12/23/2015 Comp Metabolic Tgk561 Osmo 278 mOsmo 12/23/2015 Total Psa Ord10 PSA 0.37 ng/mL 12/23/2015 Tsh Ord6 hTSH II 1.28 uIU/mL 12/23/2015 Pt Bmm6518 PT 37.6 seconds 12/03/2015 Pt Dft8687 INR 4.2 12/03/2015 Pt Eqo3115 Low Intensity - 1.5-2.0 12/03/2015 Pt Tmz1404 Mod intensity - 2.0-3.0 12/03/2015 Pt Hqq6489 Hi intensity - 3.0-4.0 12/03/2015 Pt Bny2076 PT 24.7 seconds 11/22/2015 Pt Cdc5814 INR 2.4 11/22/2015 Pt Rao8777 Low Intensity - 1.5-2.0 11/22/2015 Pt Naz1703 Mod intensity - 2.0-3.0 11/22/2015 Pt Oiy9918 Hi intensity - 3.0-4.0 11/22/2015 Pt Uxd8616 PT 18.5 seconds 11/14/2015 Pt Tzu7109 INR 1.6 11/14/2015 Pt Rbz5686 Low Intensity - 1.5-2.0 11/14/2015 Pt Jps2000 Mod intensity - 2.0-3.0 11/14/2015 Pt Rql5401 Hi intensity - 3.0-4.0 11/14/2015 Pt Wtp9986 PT 21.2 seconds 11/01/2015 Pt Dnw4936 INR 1.9 11/01/2015 Pt Vaz9020 Low Intensity - 1.5-2.0 11/01/2015 Pt Rrl7626 Mod intensity - 2.0-3.0 11/01/2015 Pt Kbi0950 Hi intensity - 3.0-4.0 11/01/2015 Pt Iwd2970 PT 17.6 seconds 10/29/2015 Pt Hdb5556 INR 1.5 10/29/2015 Pt Uhf6941 Low Intensity - 1.5-2.0 10/29/2015 Pt Xcd4978 Mod intensity - 2.0-3.0 10/29/2015 Pt Dpq0719 Hi intensity - 3.0-4.0 10/29/2015 Pt Bym9563 PT 15.4 seconds 10/21/2015 Pt Cko2151 INR 1.3 10/21/2015 Pt Idq7749 Low Intensity - 1.5-2.0 10/21/2015 Pt Ocp5348 Mod intensity - 2.0-3.0 10/21/2015 Pt Olr1730 Hi intensity - 3.0-4.0 10/21/2015 Pt Rgz2673 PT 40.0 seconds 10/18/2015 Pt Bgd5159 INR 4.5 10/18/2015 Pt Kyl1947 Low Intensity - 1.5-2.0 10/18/2015 Pt Wob1449 Mod intensity - 2.0-3.0 10/18/2015 Pt Nez7700 Hi intensity - 3.0-4.0 10/18/2015 Pt Shz6018 PT 52.8 seconds 10/16/2015 Pt Plr0427 INR 6.5 Result Verified By Repeat Analysis 2015 Pt Uyl4921 Low Intensity - 1.5-2.0 10/16/2015 Pt Nwc4166 Mod intensity - 2.0-3.0 10/16/2015 Pt Xol3496 Hi intensity - 3.0-4.0 10/16/2015 Pt Rgn0200 PT 43.5 seconds 08/29/2015 Pt Ltx8276 INR 4.8 08/29/2015 Pt Icx6268 Low Intensity - 1.5-2.0 08/29/2015 Pt Ija9972 Mod intensity - 2.0-3.0 08/29/2015 Pt Bni4465 Hi intensity - 3.0-4.0 08/29/2015 Comp Metabolic Iqq577 NA 137 mEq/L 05/20/2015 Comp Metabolic Imx196 K 4.7 mEq/L 05/20/2015 Comp Metabolic Rns583 CL 106 mEq/L 05/20/2015 Comp Metabolic Vir459 CO2 24.0 mEq/L 05/20/2015 Comp Metabolic Izw317 ANION GAP 12 05/20/2015 Comp Metabolic Htz536 GLUCOSE 67 mg/dL 05/20/2015 Comp Metabolic Fbw388 Creat 1.3 mg/dL 05/20/2015 Comp Metabolic Wbc032 eGFR 57 ml/min/1.73m2 05/20/2015 Comp Metabolic Lwd936 BUN 17 mg/dL 05/20/2015 Comp Metabolic Qvx104 B/C Ratio 13.4 Ratio 05/20/2015 Comp Metabolic Def810 CALCIUM 9.2 mg/dL 05/20/2015 Comp Metabolic Llo688 ALK PHOS 91 U/L 05/20/2015 Comp Metabolic Mvc858 AST(SGOT) 22 U/L 05/20/2015 Comp Metabolic Gxs981 ALT(SGPT) 15 U/L 05/20/2015 Comp Metabolic Poz230 BILI T 0.8 mg/dL 05/20/2015 Comp Metabolic Dyt032 ALBUMIN 4.1 g/dL 05/20/2015 Comp Metabolic Rml846 TPRO 7.2 g/dL 05/20/2015 Comp Metabolic Bsu451 GLOB 3.1 g/dL 05/20/2015 Comp Metabolic Ehc463 A/G Ratio 1.3 Ratio 05/20/2015 Comp Metabolic Eay156 Osmo 274 mOsmo 05/20/2015 Tsh Ord6 hTSH II 1.33 uIU/mL 05/20/2015 Cbc With Differential Ord2 WBC 4.9 K/uL 05/20/2015 Cbc With Differential Ord2 LYM 1.9 K/uL 05/20/2015 Cbc With Differential Ord2 LYM% 38.2 % 05/20/2015 Cbc With Differential Ord2 NEUT/GRAN 2.6 K/uL 05/20/2015 Cbc With Differential Ord2 NEUT/GRAN % 53.3 % 05/20/2015 Cbc With Differential Ord2 MID 0.4 K/uL 05/20/2015 Cbc With Differential Ord2 MID% 8.5 % 05/20/2015 Cbc With Differential Ord2 RBC 4.82 M/uL 05/20/2015 Cbc With Differential Ord2 HGB 14.3 g/dL 05/20/2015 Cbc With Differential Ord2 HCT 46.7 % 05/20/2015 Cbc With Differential Ord2 MCV 97 fL 05/20/2015 Cbc With Differential Ord2 MCH 30 pg 05/20/2015 Cbc With Differential Ord2 MCHC 31 g/dL 05/20/2015 Cbc With Differential Ord2 PLT 210 K/uL 05/20/2015 Cbc With Differential Ord2 RDW 13.6 % 05/20/2015 %Hba1C [id number] % HbA1c 21637-0 7.1 % 05/20/2015 %Hba1C [id number] Gluc Ave 157 mg/dL 05/20/2015 Review of Systems System Result Effective Dates Constitutional No recent illness 2017 Constitutional No anorexia 06/23/2017 Constitutional No night sweats 2017 Constitutional No chills 06/23/2017 Constitutional No diaphoresis 06/23/2017 Constitutional fatigue 06/23/2017 Constitutional No fever 06/23/2017 Constitutional insomnia 06/23/2017 Constitutional No malaise 06/23/2017 Eyes No eye discharge 06/23/2017 Eyes No eye erythema 06/23/2017 Ears/Nose/Throat/Neck No dizziness 2017 Ears/Nose/Throat/Neck No headache 2017 Cardiovascular No chest pain/pressure Respiratory No cough 06/23/2017 Gastrointestinal No abdominal pain 2017 Gastrointestinal No constipation 2017 Gastrointestinal No diarrhea 06/23/2017 Genitourinary/Nephrology No dysuria 06/23 Musculoskeletal No joint complaint 2017 Dermatologic No rash 06/23/2017 Dermatologic No sores 06/23/2017 Neurologic No alteration of consciousness 06/23/2017 Neurologic vertigo 06/23/2017 Psychiatric No anxiety 06/23/2017 Psychiatric No depression 06/23/2017 Endocrine diabetes mellitus type 2 2017 Constitutional No recent illness 2016 Constitutional No anorexia 03/24/2017 Constitutional No night sweats 2016 Constitutional No chills 03/24/2017 Constitutional No diaphoresis 03/24/2017 Constitutional No fatigue 03/24/2017 Constitutional No fever 03/24/2017 Constitutional No insomnia 03/24/2017 Constitutional No malaise 03/24/2017 Eyes No eye discharge 03/24/2017 Eyes No eye erythema 03/24/2017 Ears/Nose/Throat/Neck No dizziness 2016 Ears/Nose/Throat/Neck No headache 2016 Cardiovascular No chest pain/pressure Respiratory No cough 03/24/2017 Gastrointestinal No abdominal pain 2016 Gastrointestinal No constipation 2016 Gastrointestinal No diarrhea 03/24/2017 Genitourinary/Nephrology No dysuria 03/24 Musculoskeletal No joint complaint 2016 Dermatologic No rash 03/24/2017 Dermatologic No sores 03/24/2017 Neurologic No alteration of consciousness 03/24/2017 Psychiatric No anxiety 03/24/2017 Psychiatric No depression 03/24/2017 Neurologic vertigo 03/24/2017 Constitutional No recent illness 2016 Constitutional No chills 12/24/2016 Constitutional diaphoresis 12/24/2016 Constitutional No fever 12/24/2016 Eyes No eye erythema 12/24/2016 Ears/Nose/Throat/Neck No nasal discharge 12/24/2016 Ears/Nose/Throat/Neck No nasal allergies 12/24/2016 Cardiovascular No chest pain/pressure Cardiovascular No dyspnea 12/24/2016 Respiratory No cough 12/24/2016 Respiratory No dyspnea 12/24/2016 Gastrointestinal No abdominal pain 2016 Gastrointestinal No vomiting 12/24/2016 Gastrointestinal No nausea 12/24/2016 Dermatologic No rash 12/24/2016 Neurologic No alteration of consciousness 12/24/2016 Neurologic No mental status change 2016 Endocrine diabetes mellitus type 2 2016 Endocrine sweating 12/24/2016 Constitutional No recent illness 2016 Constitutional No anorexia 11/10/2016 Constitutional No night sweats 2016 Constitutional No chills 11/10/2016 Constitutional No diaphoresis 11/10/2016 Constitutional No fatigue 11/10/2016 Constitutional No fever 11/10/2016 Constitutional No insomnia 11/10/2016 Constitutional No malaise 11/10/2016 Constitutional No weight loss 11/10/2016 Constitutional No weight gain 11/10/2016 Eyes No eye discharge 11/10/2016 Eyes No eye erythema 11/10/2016 Ears/Nose/Throat/Neck No dizziness 2016 Ears/Nose/Throat/Neck No headache 2016 Cardiovascular No chest pain/pressure Respiratory No cough 11/10/2016 Gastrointestinal No abdominal pain 2016 Gastrointestinal No constipation 2016 Gastrointestinal No diarrhea 11/10/2016 Genitourinary/Nephrology No dysuria 11/10 Dermatologic No rash 11/10/2016 Dermatologic No sores 11/10/2016 Neurologic No alteration of consciousness 11/10/2016 Musculoskeletal No joint complaint 2016 Constitutional No recent illness 2016 Constitutional No anorexia 10/06/2016 Constitutional No night sweats 2016 Constitutional No chills 10/06/2016 Constitutional No diaphoresis 10/06/2016 Constitutional No fatigue 10/06/2016 Constitutional No fever 10/06/2016 Constitutional No insomnia 10/06/2016 Constitutional No malaise 10/06/2016 Constitutional No weight loss 10/06/2016 Constitutional No weight gain 10/06/2016 Eyes No eye discharge 10/06/2016 Eyes No eye erythema 10/06/2016 Ears/Nose/Throat/Neck dizziness 2016 Ears/Nose/Throat/Neck No headache 2016 Cardiovascular No chest pain/pressure 01/2017 Respiratory No cough 10/06/2016 Gastrointestinal No abdominal pain 2016 Gastrointestinal No constipation 2016 Gastrointestinal No diarrhea 10/06/2016 Genitourinary/Nephrology No dysuria 10/06 Dermatologic No rash 10/06/2016 Dermatologic No sores 10/06/2016 Neurologic No alteration of consciousness 10/06/2016 Ears/Nose/Throat/Neck cerumen 10/06/2016 Constitutional No recent illness 2016 Constitutional No anorexia 09/08/2016 Constitutional No night sweats 2016 Constitutional No chills 09/08/2016 Constitutional No diaphoresis 09/08/2016 Constitutional No fatigue 09/08/2016 Constitutional No insomnia 09/08/2016 Constitutional No fever 09/08/2016 Constitutional No malaise 09/08/2016 Constitutional No weight loss 09/08/2016 Constitutional No weight gain 09/08/2016 Eyes No eye discharge 09/08/2016 Eyes No eye erythema 09/08/2016 Ears/Nose/Throat/Neck No dizziness 2016 Ears/Nose/Throat/Neck No headache 2016 Cardiovascular No chest pain/pressure 03/2017 Respiratory No cough 09/08/2016 Gastrointestinal No abdominal pain 2016 Gastrointestinal No constipation 2016 Gastrointestinal No diarrhea 09/08/2016 Genitourinary/Nephrology No dysuria 09/08 Musculoskeletal joint complaint 2016 Dermatologic No rash 09/08/2016 Dermatologic No sores 09/08/2016 Neurologic No alteration of consciousness 09/08/2016 Constitutional No recent illness 2016 Constitutional No chills 08/25/2016 Constitutional No diaphoresis 08/25/2016 Constitutional No fever 08/25/2016 Eyes No eye discharge 08/25/2016 Eyes No eye erythema 08/25/2016 Eyes No vision change 08/25/2016 Ears/Nose/Throat/Neck No nasal discharge 08/25/2016 Cardiovascular No chest pain/pressure Respiratory No cough 08/25/2016 Gastrointestinal No abdominal pain 2016 Neurologic No alteration of consciousness 08/25/2016 Ears/Nose/Throat/Neck No nasal allergies 08/25/2016 Neurologic No mental status change 2016 Constitutional No recent illness 2016 Constitutional No anorexia 08/11/2016 Constitutional No night sweats 2016 Constitutional No chills 08/11/2016 Constitutional No diaphoresis 08/11/2016 Constitutional No fatigue 08/11/2016 Constitutional No fever 08/11/2016 Constitutional No insomnia 08/11/2016 Constitutional No malaise 08/11/2016 Constitutional No weight loss 08/11/2016 Constitutional No weight gain 08/11/2016 Eyes No blindness 08/11/2016 Eyes No eye discharge 08/11/2016 Eyes No eye erythema 08/11/2016 Eyes No eye pain 08/11/2016 Eyes No vision change 08/11/2016 Ears/Nose/Throat/Neck No dizziness 2016 Ears/Nose/Throat/Neck No headache 2016 Ears/Nose/Throat/Neck No nasal discharge 08/11/2016 Ears/Nose/Throat/Neck No otalgia 2016 Ears/Nose/Throat/Neck No sinus congestion 08/11/2016 Ears/Nose/Throat/Neck No sore throat Cardiovascular No chest pain/pressure Respiratory No cough 08/11/2016 Gastrointestinal No abdominal pain 2016 Genitourinary/Nephrology No dysuria 08/11 Musculoskeletal No back pain 08/11/2016 Dermatologic No rash 08/11/2016 Dermatologic No sores 08/11/2016 Neurologic No alteration of consciousness 08/11/2016 Neurologic No ataxia 08/11/2016 Neurologic No dizziness 08/11/2016 Psychiatric No depression 08/11/2016 Endocrine No dry or coarse skin 2016 Hematologic/Lymphatic No abnormal ecchymoses 08/11/2016 Constitutional No recent illness 2016 Constitutional No anorexia 07/14/2016 Constitutional No night sweats 2016 Constitutional No chills 07/14/2016 Constitutional No diaphoresis 07/14/2016 Constitutional No fatigue 07/14/2016 Constitutional No fever 07/14/2016 Constitutional No insomnia 07/14/2016 Constitutional No malaise 07/14/2016 Constitutional No weight loss 07/14/2016 Constitutional No weight gain 07/14/2016 Eyes No blindness 07/14/2016 Eyes No eye discharge 07/14/2016 Eyes No eye erythema 07/14/2016 Eyes No eye pain 07/14/2016 Eyes No vision change 07/14/2016 Ears/Nose/Throat/Neck dizziness 2016 Ears/Nose/Throat/Neck No headache 2016 Ears/Nose/Throat/Neck No nasal discharge 07/14/2016 Ears/Nose/Throat/Neck No otalgia 2016 Ears/Nose/Throat/Neck No sinus congestion 07/14/2016 Ears/Nose/Throat/Neck No sore throat Cardiovascular No chest pain/pressure Respiratory No cough 07/14/2016 Gastrointestinal No abdominal pain 2016 Genitourinary/Nephrology No dysuria 07/14 Musculoskeletal No back pain 07/14/2016 Dermatologic No rash 07/14/2016 Dermatologic No sores 07/14/2016 Neurologic No alteration of consciousness 07/14/2016 Neurologic No ataxia 07/14/2016 Neurologic No dizziness 07/14/2016 Psychiatric No depression 07/14/2016 Endocrine No dry or coarse skin 2016 Hematologic/Lymphatic No abnormal ecchymoses 07/14/2016 Neurologic memory loss 07/14/2016 Constitutional No recent illness 2015 Constitutional No anorexia 05/19/2016 Constitutional No night sweats 2015 Constitutional No chills 05/19/2016 Constitutional No diaphoresis 05/19/2016 Constitutional No fatigue 05/19/2016 Constitutional No fever 05/19/2016 Constitutional No insomnia 05/19/2016 Constitutional No malaise 05/19/2016 Constitutional No weight loss 05/19/2016 Constitutional No weight gain 05/19/2016 Eyes No blindness 05/19/2016 Eyes No eye discharge 05/19/2016 Eyes No eye erythema 05/19/2016 Eyes No eye pain 05/19/2016 Eyes No vision change 05/19/2016 Ears/Nose/Throat/Neck dizziness 2015 Ears/Nose/Throat/Neck No headache 2015 Ears/Nose/Throat/Neck No nasal discharge 05/19/2016 Ears/Nose/Throat/Neck No otalgia 2015 Ears/Nose/Throat/Neck No sinus congestion 05/19/2016 Ears/Nose/Throat/Neck No sore throat Cardiovascular No chest pain/pressure Respiratory No cough 05/19/2016 Gastrointestinal No abdominal pain 2015 Genitourinary/Nephrology No dysuria 05/19 Dermatologic No rash 05/19/2016 Dermatologic No sores 05/19/2016 Neurologic No alteration of consciousness 05/19/2016 Neurologic No ataxia 05/19/2016 Neurologic No dizziness 05/19/2016 Psychiatric No depression 05/19/2016 Endocrine No dry or coarse skin 2015 Hematologic/Lymphatic No abnormal ecchymoses 05/19/2016 Musculoskeletal No back pain 05/19/2016 Constitutional No recent illness 2015 Constitutional No anorexia 03/23/2016 Constitutional No night sweats 2015 Constitutional No chills 03/23/2016 Constitutional No diaphoresis 03/23/2016 Constitutional No fatigue 03/23/2016 Constitutional No fever 03/23/2016 Constitutional No insomnia 03/23/2016 Constitutional No malaise 03/23/2016 Constitutional No weight loss 03/23/2016 Constitutional No weight gain 03/23/2016 Eyes No blindness 03/23/2016 Eyes No eye discharge 03/23/2016 Eyes No eye erythema 03/23/2016 Eyes No eye pain 03/23/2016 Eyes No vision change 03/23/2016 Ears/Nose/Throat/Neck No dizziness 2015 Ears/Nose/Throat/Neck No headache 2015 Ears/Nose/Throat/Neck No nasal discharge 03/23/2016 Ears/Nose/Throat/Neck No otalgia 2015 Ears/Nose/Throat/Neck No sinus congestion 03/23/2016 Ears/Nose/Throat/Neck No sore throat Cardiovascular No chest pain/pressure Respiratory No cough 03/23/2016 Gastrointestinal No abdominal pain 2015 Genitourinary/Nephrology No dysuria 03/23 Dermatologic No rash 03/23/2016 Dermatologic No sores 03/23/2016 Neurologic No alteration of consciousness 03/23/2016 Neurologic No ataxia 03/23/2016 Neurologic No dizziness 03/23/2016 Psychiatric No depression 03/23/2016 Endocrine No dry or coarse skin 2015 Hematologic/Lymphatic No abnormal ecchymoses 03/23/2016 Musculoskeletal back pain 03/23/2016 Constitutional No recent illness 2015 Constitutional No anorexia 03/05/2016 Constitutional No night sweats 2015 Constitutional No diaphoresis 03/05/2016 Constitutional No chills 03/05/2016 Constitutional No fatigue 03/05/2016 Constitutional No fever 03/05/2016 Constitutional No insomnia 03/05/2016 Constitutional No malaise 03/05/2016 Constitutional No weight loss 03/05/2016 Constitutional No weight gain 03/05/2016 Eyes No blindness 03/05/2016 Eyes No eye discharge 03/05/2016 Eyes No eye erythema 03/05/2016 Eyes No eye pain 03/05/2016 Eyes No vision change 03/05/2016 Ears/Nose/Throat/Neck No dizziness 2015 Ears/Nose/Throat/Neck No headache 2015 Ears/Nose/Throat/Neck No nasal discharge 03/05/2016 Ears/Nose/Throat/Neck No otalgia 2015 Ears/Nose/Throat/Neck No sinus congestion 03/05/2016 Ears/Nose/Throat/Neck No sore throat 10/2015 Cardiovascular No chest pain/pressure 10/2015 Respiratory No cough 03/05/2016 Gastrointestinal No abdominal pain 2015 Genitourinary/Nephrology No dysuria 03/05 Musculoskeletal back pain 03/05/2016 Dermatologic No rash 03/05/2016 Dermatologic No sores 03/05/2016 Neurologic No alteration of consciousness 03/05/2016 Neurologic No ataxia 03/05/2016 Neurologic No dizziness 03/05/2016 Psychiatric No depression 03/05/2016 Endocrine No dry or coarse skin 2015 Hematologic/Lymphatic No abnormal ecchymoses 03/05/2016 Constitutional No recent illness 2015 Constitutional No anorexia 02/27/2016 Constitutional No night sweats 2015 Constitutional No chills 02/27/2016 Constitutional No diaphoresis 02/27/2016 Constitutional fatigue 02/27/2016 Constitutional No fever 02/27/2016 Constitutional No insomnia 02/27/2016 Constitutional No malaise 02/27/2016 Constitutional No weight loss 02/27/2016 Constitutional No weight gain 02/27/2016 Eyes No blindness 02/27/2016 Ears/Nose/Throat/Neck headache 2015 Ears/Nose/Throat/Neck dizziness 2015 Cardiovascular No chest pain/pressure Cardiovascular No dyspnea 02/27/2016 Cardiovascular near-syncope/dizziness Cardiovascular No syncope 02/27/2016 Respiratory No chest congestion 2015 Respiratory No cigarette smoking 2015 Respiratory No cough 02/27/2016 Respiratory No dyspnea 02/27/2016 Gastrointestinal No dysphagia 02/27/2016 Gastrointestinal No constipation 2015 Gastrointestinal No diarrhea 02/27/2016 Gastrointestinal No nausea 02/27/2016 Gastrointestinal No vomiting 02/27/2016 Genitourinary/Nephrology No dysuria 02/26 Genitourinary/Nephrology No anuria/oliguria 02/27/2016 Musculoskeletal No stiffness 02/27/2016 Musculoskeletal No swelling 02/27/2016 Musculoskeletal No back pain 02/27/2016 Musculoskeletal muscle weakness 2015 Dermatologic No rash 02/27/2016 Dermatologic No sores 02/27/2016 Neurologic dizziness 02/27/2016 Neurologic alteration of consciousness Neurologic headache 02/27/2016 Neurologic memory loss 02/27/2016 Psychiatric No anxiety 02/27/2016 Psychiatric No depression 02/27/2016 Psychiatric alcohol abuse 02/27/2016 Psychiatric No drug abuse 02/27/2016 Endocrine No polyuria 02/27/2016 Endocrine No polydipsia 02/27/2016 Endocrine diabetes mellitus type 2 2015 Ears/Nose/Throat/Neck No dysphagia 2015 Ears/Nose/Throat/Neck nasal discharge Ears/Nose/Throat/Neck No otalgia 2015 Ears/Nose/Throat/Neck No hoarseness 02/26 Ears/Nose/Throat/Neck sinus congestion Eyes No eye discharge 02/27/2016 Eyes No eye erythema 02/27/2016 Eyes No eye pain 02/27/2016 Eyes No vision change 02/27/2016 Ears/Nose/Throat/Neck No cancer of head and neck 02/27/2016 Ears/Nose/Throat/Neck No cosmetic deformity 02/27/2016 Ears/Nose/Throat/Neck No dental pain Ears/Nose/Throat/Neck No epistaxis 2015 Ears/Nose/Throat/Neck No facial pain Ears/Nose/Throat/Neck No facial swelling 02/27/2016 Ears/Nose/Throat/Neck No facial weakness 02/27/2016 Ears/Nose/Throat/Neck No hearing loss Respiratory No productive sputum 2015 Respiratory No aspiration 02/27/2016 Respiratory No wheezing 02/27/2016 Respiratory No stridor 02/27/2016 Constitutional No recent illness 2015 Constitutional No anorexia 01/28/2016 Constitutional No night sweats 2015 Constitutional No chills 01/28/2016 Constitutional No diaphoresis 01/28/2016 Constitutional No fatigue 01/28/2016 Constitutional No malaise 01/28/2016 Constitutional No weight loss 01/28/2016 Constitutional No weight gain 01/28/2016 Constitutional No insomnia 01/28/2016 Constitutional No fever 01/28/2016 Musculoskeletal No joint complaint 2015 Constitutional No recent illness 2015 Constitutional No chills 12/23/2015 Constitutional No fatigue 12/23/2015 Constitutional No fever 12/23/2015 Constitutional insomnia 12/23/2015 Constitutional No malaise 12/23/2015 Eyes No blindness 12/23/2015 Eyes No eye erythema 12/23/2015 Eyes No eye floaters 12/23/2015 Eyes No eye pain 12/23/2015 Eyes No photophobia 12/23/2015 Eyes No vision change 12/23/2015 Ears/Nose/Throat/Neck No dizziness 2015 Ears/Nose/Throat/Neck No hearing loss Ears/Nose/Throat/Neck No nasal allergies 12/23/2015 Ears/Nose/Throat/Neck No sore throat Ears/Nose/Throat/Neck No taste change Ears/Nose/Throat/Neck No otalgia 2015 Ears/Nose/Throat/Neck No tympanic membrane perforation 12/23/2015 Ears/Nose/Throat/Neck No postnasal drip 12/23/2015 Ears/Nose/Throat/Neck No sinus congestion 12/23/2015 Cardiovascular No chest pain/pressure Cardiovascular No dyspnea 12/23/2015 Cardiovascular No edema 12/23/2015 Cardiovascular No fatigue 12/23/2015 Cardiovascular No near-syncope/dizziness 12/23/2015 Respiratory No chest tightness 2015 Respiratory No cough 12/23/2015 Respiratory No dyspnea 12/23/2015 Respiratory No pedal edema 12/23/2015 Gastrointestinal No abdominal pain 2015 Gastrointestinal No constipation 2015 Gastrointestinal No diarrhea 12/23/2015 Gastrointestinal No nausea 12/23/2015 Gastrointestinal No vomiting 12/23/2015 Genitourinary/Nephrology No urinary incontinence 12/23/2015 Musculoskeletal No joint complaint 2015 Dermatologic No rash 12/23/2015 Dermatologic No sores 12/23/2015 Dermatologic No scar 12/23/2015 Neurologic No alteration of consciousness 12/23/2015 Neurologic No aphasia 12/23/2015 Neurologic No ataxia 12/23/2015 Neurologic No dizziness 12/23/2015 Neurologic No gait abnormality 2015 Neurologic No hearing loss 12/23/2015 Neurologic No memory loss 12/23/2015 Neurologic No mental status change 2015 Neurologic No speech difficulties 2015 Neurologic No syncope 12/23/2015 Neurologic No tinnitus 12/23/2015 Neurologic No vertigo 12/23/2015 Neurologic No vision change 12/23/2015 Neurologic No weakness 12/23/2015 Psychiatric No anxiety 12/23/2015 Psychiatric No depression 12/23/2015 Constitutional anorexia 12/23/2015 Constitutional No night sweats 2015 Constitutional No weight loss 12/23/2015 Constitutional No weight gain 12/23/2015 Genitourinary/Nephrology urinary retention/hesitancy 12/23/2015 Constitutional No recent illness 2015 Constitutional No chills 12/11/2015 Constitutional fatigue 12/11/2015 Constitutional No fever 12/11/2015 Constitutional insomnia 12/11/2015 Constitutional No malaise 12/11/2015 Eyes No blindness 12/11/2015 Eyes No eye erythema 12/11/2015 Eyes No eye floaters 12/11/2015 Eyes No eye pain 12/11/2015 Eyes No photophobia 12/11/2015 Eyes No vision change 12/11/2015 Ears/Nose/Throat/Neck No dizziness 2015 Ears/Nose/Throat/Neck No hearing loss Ears/Nose/Throat/Neck No nasal allergies 12/11/2015 Ears/Nose/Throat/Neck No sore throat Ears/Nose/Throat/Neck No taste change Ears/Nose/Throat/Neck No otalgia 2015 Ears/Nose/Throat/Neck No tympanic membrane perforation 12/11/2015 Ears/Nose/Throat/Neck No postnasal drip 12/11/2015 Ears/Nose/Throat/Neck No sinus congestion 12/11/2015 Cardiovascular No chest pain/pressure Cardiovascular No dyspnea 12/11/2015 Cardiovascular No edema 12/11/2015 Cardiovascular No fatigue 12/11/2015 Cardiovascular No near-syncope/dizziness 12/11/2015 Respiratory No chest tightness 2015 Respiratory No cough 12/11/2015 Respiratory No dyspnea 12/11/2015 Respiratory No pedal edema 12/11/2015 Gastrointestinal No abdominal pain 2015 Gastrointestinal constipation 12/11/2015 Gastrointestinal No diarrhea 12/11/2015 Gastrointestinal No nausea 12/11/2015 Gastrointestinal No vomiting 12/11/2015 Genitourinary/Nephrology No urinary incontinence 12/11/2015 Musculoskeletal No joint complaint 2015 Dermatologic No rash 12/11/2015 Dermatologic No sores 12/11/2015 Dermatologic No scar 12/11/2015 Neurologic No alteration of consciousness 12/11/2015 Neurologic No aphasia 12/11/2015 Neurologic No ataxia 12/11/2015 Neurologic No dizziness 12/11/2015 Neurologic No gait abnormality 2015 Neurologic No hearing loss 12/11/2015 Neurologic No memory loss 12/11/2015 Neurologic No mental status change 2015 Neurologic No speech difficulties 2015 Neurologic No syncope 12/11/2015 Neurologic No tinnitus 12/11/2015 Neurologic No vertigo 12/11/2015 Neurologic No vision change 12/11/2015 Neurologic No weakness 12/11/2015 Psychiatric No anxiety 12/11/2015 Psychiatric No depression 12/11/2015 Endocrine diabetes mellitus type 2 2015 Constitutional No recent illness 2015 Constitutional No chills 10/16/2015 Constitutional No fatigue 10/16/2015 Constitutional No fever 10/16/2015 Constitutional insomnia 10/16/2015 Constitutional No malaise 10/16/2015 Eyes No blindness 10/16/2015 Eyes No eye erythema 10/16/2015 Eyes No eye floaters 10/16/2015 Eyes No eye pain 10/16/2015 Eyes No photophobia 10/16/2015 Eyes No vision change 10/16/2015 Ears/Nose/Throat/Neck No dizziness 2015 Ears/Nose/Throat/Neck No hearing loss Ears/Nose/Throat/Neck No nasal allergies 10/16/2015 Ears/Nose/Throat/Neck No otalgia 2015 Ears/Nose/Throat/Neck No postnasal drip 10/16/2015 Ears/Nose/Throat/Neck No sinus congestion 10/16/2015 Ears/Nose/Throat/Neck No sore throat Ears/Nose/Throat/Neck No taste change Ears/Nose/Throat/Neck No tympanic membrane perforation 10/16/2015 Cardiovascular No chest pain/pressure Cardiovascular No dyspnea 10/16/2015 Cardiovascular No edema 10/16/2015 Cardiovascular No fatigue 10/16/2015 Cardiovascular No near-syncope/dizziness 10/16/2015 Respiratory No chest tightness 2015 Respiratory No cough 10/16/2015 Respiratory No dyspnea 10/16/2015 Respiratory No pedal edema 10/16/2015 Gastrointestinal No abdominal pain 2015 Gastrointestinal constipation 10/16/2015 Gastrointestinal No diarrhea 10/16/2015 Gastrointestinal No nausea 10/16/2015 Gastrointestinal No vomiting 10/16/2015 Genitourinary/Nephrology No urinary incontinence 10/16/2015 Musculoskeletal No joint complaint 2015 Dermatologic No rash 10/16/2015 Dermatologic No sores 10/16/2015 Dermatologic No scar 10/16/2015 Neurologic No alteration of consciousness 10/16/2015 Neurologic No aphasia 10/16/2015 Neurologic No ataxia 10/16/2015 Neurologic No dizziness 10/16/2015 Neurologic No gait abnormality 2015 Neurologic No hearing loss 10/16/2015 Neurologic No memory loss 10/16/2015 Neurologic No mental status change 2015 Neurologic No speech difficulties 2015 Neurologic No syncope 10/16/2015 Neurologic No tinnitus 10/16/2015 Neurologic No vertigo 10/16/2015 Neurologic No vision change 10/16/2015 Neurologic No weakness 10/16/2015 Psychiatric No anxiety 10/16/2015 Psychiatric No depression 10/16/2015 Constitutional recent illness 08/19/2015 Constitutional fatigue 08/19/2015 Constitutional No fever 08/19/2015 Constitutional malaise 08/19/2015 Eyes No eye erythema 08/19/2015 Ears/Nose/Throat/Neck No dizziness 2015 Ears/Nose/Throat/Neck No headache 2015 Ears/Nose/Throat/Neck No hoarseness 08/18 Ears/Nose/Throat/Neck nasal discharge Ears/Nose/Throat/Neck sore throat 2015 Cardiovascular No chest pain/pressure Cardiovascular No dyspnea 08/19/2015 Cardiovascular No edema 08/19/2015 Cardiovascular fatigue 08/19/2015 Respiratory cough 08/19/2015 Respiratory chest congestion 08/19/2015 Gastrointestinal diarrhea 08/19/2015 Gastrointestinal nausea 08/19/2015 Gastrointestinal vomiting 08/19/2015 Psychiatric No anxiety 08/19/2015 Psychiatric No depression 08/19/2015 Dermatologic No rash 08/19/2015 Dermatologic No scar 08/19/2015 Musculoskeletal No stiffness 08/19/2015 Musculoskeletal No swelling 08/19/2015 Musculoskeletal No muscle weakness 2015 Musculoskeletal No myalgias 08/19/2015 Constitutional No recent illness 2015 Constitutional No chills 07/01/2015 Constitutional No fatigue 07/01/2015 Constitutional No fever 07/01/2015 Constitutional insomnia 07/01/2015 Constitutional No malaise 07/01/2015 Eyes No blindness 07/01/2015 Eyes No eye erythema 07/01/2015 Eyes No eye floaters 07/01/2015 Eyes No eye pain 07/01/2015 Eyes No photophobia 07/01/2015 Eyes No vision change 07/01/2015 Ears/Nose/Throat/Neck No dizziness 2015 Ears/Nose/Throat/Neck No hearing loss 05/2015 Ears/Nose/Throat/Neck No nasal allergies 07/01/2015 Ears/Nose/Throat/Neck No otalgia 2015 Ears/Nose/Throat/Neck No postnasal drip 07/01/2015 Ears/Nose/Throat/Neck No sinus congestion 07/01/2015 Ears/Nose/Throat/Neck No sore throat 05/2015 Ears/Nose/Throat/Neck No taste change 05/2015 Ears/Nose/Throat/Neck No tympanic membrane perforation 07/01/2015 Cardiovascular No chest pain/pressure 05/2015 Cardiovascular No dyspnea 07/01/2015 Cardiovascular edema 07/01/2015 Cardiovascular No fatigue 07/01/2015 Cardiovascular No near-syncope/dizziness 07/01/2015 Respiratory No chest tightness 2015 Respiratory No cough 07/01/2015 Respiratory No dyspnea 07/01/2015 Respiratory No pedal edema 07/01/2015 Gastrointestinal No abdominal pain 2015 Gastrointestinal constipation 07/01/2015 Gastrointestinal No diarrhea 07/01/2015 Gastrointestinal No nausea 07/01/2015 Gastrointestinal No vomiting 07/01/2015 Genitourinary/Nephrology No urinary incontinence 07/01/2015 Musculoskeletal No joint complaint 2015 Dermatologic No rash 07/01/2015 Dermatologic No sores 07/01/2015 Dermatologic No scar 07/01/2015 Neurologic No alteration of consciousness 07/01/2015 Neurologic No aphasia 07/01/2015 Neurologic No ataxia 07/01/2015 Neurologic No dizziness 07/01/2015 Neurologic No gait abnormality 2015 Neurologic No hearing loss 07/01/2015 Neurologic No memory loss 07/01/2015 Neurologic No mental status change 2015 Neurologic No speech difficulties 2015 Neurologic No syncope 07/01/2015 Neurologic No tinnitus 07/01/2015 Neurologic No vertigo 07/01/2015 Neurologic No vision change 07/01/2015 Neurologic No weakness 07/01/2015 Psychiatric No anxiety 07/01/2015 Psychiatric No depression 07/01/2015 Musculoskeletal swelling 07/01/2015 Musculoskeletal arthralgia(s) 07/01/2015 Constitutional No recent illness 2014 Constitutional No chills 05/20/2015 Constitutional No fatigue 05/20/2015 Constitutional No fever 05/20/2015 Constitutional insomnia 05/20/2015 Constitutional No malaise 05/20/2015 Eyes No blindness 05/20/2015 Eyes No eye erythema 05/20/2015 Eyes No eye floaters 05/20/2015 Eyes No eye pain 05/20/2015 Eyes No photophobia 05/20/2015 Eyes No vision change 05/20/2015 Ears/Nose/Throat/Neck No dizziness 2014 Ears/Nose/Throat/Neck No hearing loss Ears/Nose/Throat/Neck No nasal allergies 05/20/2015 Ears/Nose/Throat/Neck No otalgia 2014 Ears/Nose/Throat/Neck No postnasal drip 05/20/2015 Ears/Nose/Throat/Neck No sinus congestion 05/20/2015 Ears/Nose/Throat/Neck No sore throat Ears/Nose/Throat/Neck No taste change Ears/Nose/Throat/Neck No tympanic membrane perforation 05/20/2015 Cardiovascular No chest pain/pressure Cardiovascular No dyspnea 05/20/2015 Cardiovascular No edema 05/20/2015 Cardiovascular No fatigue 05/20/2015 Cardiovascular No near-syncope/dizziness 05/20/2015 Respiratory No chest tightness 2014 Respiratory No cough 05/20/2015 Respiratory No dyspnea 05/20/2015 Respiratory No pedal edema 05/20/2015 Gastrointestinal No abdominal pain 2014 Gastrointestinal constipation 05/20/2015 Gastrointestinal No diarrhea 05/20/2015 Gastrointestinal No nausea 05/20/2015 Gastrointestinal No vomiting 05/20/2015 Genitourinary/Nephrology No urinary incontinence 05/20/2015 Dermatologic No rash 05/20/2015 Dermatologic No sores 05/20/2015 Dermatologic No scar 05/20/2015 Neurologic No alteration of consciousness 05/20/2015 Neurologic No aphasia 05/20/2015 Neurologic No ataxia 05/20/2015 Neurologic No dizziness 05/20/2015 Neurologic No gait abnormality 2014 Neurologic No hearing loss 05/20/2015 Neurologic No memory loss 05/20/2015 Neurologic No mental status change 2014 Neurologic No speech difficulties 2014 Neurologic No syncope 05/20/2015 Neurologic No tinnitus 05/20/2015 Neurologic No vertigo 05/20/2015 Neurologic No vision change 05/20/2015 Neurologic No weakness 05/20/2015 Psychiatric No anxiety 05/20/2015 Psychiatric No depression 05/20/2015 Musculoskeletal No joint complaint 2014 Constitutional No recent illness 2014 Constitutional No chills 04/26/2015 Constitutional No fatigue 04/26/2015 Constitutional No fever 04/26/2015 Constitutional No insomnia 04/26/2015 Constitutional No malaise 04/26/2015 Eyes No blindness 04/26/2015 Eyes No vision change 04/26/2015 Ears/Nose/Throat/Neck No dizziness 2014 Ears/Nose/Throat/Neck No hearing loss Ears/Nose/Throat/Neck No nasal allergies 04/26/2015 Ears/Nose/Throat/Neck No sore throat Ears/Nose/Throat/Neck No postnasal drip 04/26/2015 Ears/Nose/Throat/Neck No sinus congestion 04/26/2015 Cardiovascular No chest pain/pressure Cardiovascular No dyspnea 04/26/2015 Cardiovascular No edema 04/26/2015 Cardiovascular No fatigue 04/26/2015 Cardiovascular No near-syncope/dizziness 04/26/2015 Respiratory No chest tightness 2014 Respiratory No cough 04/26/2015 Respiratory No dyspnea 04/26/2015 Respiratory No pedal edema 04/26/2015 Gastrointestinal No abdominal pain 2014 Gastrointestinal No constipation 2014 Gastrointestinal No nausea 04/26/2015 Gastrointestinal No vomiting 04/26/2015 Genitourinary/Nephrology No urinary incontinence 04/26/2015 Dermatologic No rash 04/26/2015 Dermatologic No sores 04/26/2015 Dermatologic No scar 04/26/2015 Neurologic No dizziness 04/26/2015 Neurologic headache 04/26/2015 Neurologic No syncope 04/26/2015 Psychiatric No anxiety 04/26/2015 Psychiatric No depression 04/26/2015 Eyes No eye erythema 04/26/2015 Eyes No eye floaters 04/26/2015 Eyes No photophobia 04/26/2015 Eyes No eye pain 04/26/2015 Ears/Nose/Throat/Neck headache 2014 Ears/Nose/Throat/Neck No taste change Ears/Nose/Throat/Neck No tympanic membrane perforation 04/26/2015 Ears/Nose/Throat/Neck No otalgia 2014 Gastrointestinal No diarrhea 04/26/2015 Neurologic No alteration of consciousness 04/26/2015 Neurologic No memory loss 04/26/2015 Neurologic No hearing loss 04/26/2015 Neurologic No mental status change 2014 Neurologic No vertigo 04/26/2015 Neurologic No tinnitus 04/26/2015 Neurologic No vision change 04/26/2015 Neurologic No weakness 04/26/2015 Neurologic No gait abnormality 2014 Neurologic No speech difficulties 2014 Neurologic No ataxia 04/26/2015 Neurologic No aphasia 04/26/2015 Constitutional No recent illness 2014 Constitutional No chills 12/10/2014 Constitutional No fatigue 12/10/2014 Constitutional No fever 12/10/2014 Constitutional No insomnia 12/10/2014 Constitutional No malaise 12/10/2014 Eyes No blindness 12/10/2014 Eyes No vision change 12/10/2014 Ears/Nose/Throat/Neck No dental pain Ears/Nose/Throat/Neck No dizziness 2014 Ears/Nose/Throat/Neck No dysphagia 2014 Ears/Nose/Throat/Neck No headache 2014 Ears/Nose/Throat/Neck No hearing loss Ears/Nose/Throat/Neck No nasal allergies 12/10/2014 Ears/Nose/Throat/Neck No sore throat Ears/Nose/Throat/Neck No postnasal drip 12/10/2014 Ears/Nose/Throat/Neck No sinus congestion 12/10/2014 Cardiovascular No chest pain/pressure Cardiovascular No dyspnea 12/10/2014 Cardiovascular No edema 12/10/2014 Cardiovascular No exercise intolerance Cardiovascular No fatigue 12/10/2014 Cardiovascular No near-syncope/dizziness 12/10/2014 Respiratory No chest tightness 2014 Respiratory No cough 12/10/2014 Respiratory No dyspnea 12/10/2014 Respiratory No pedal edema 12/10/2014 Gastrointestinal No abdominal pain 2014 Gastrointestinal No constipation 2014 Gastrointestinal diarrhea 12/10/2014 Gastrointestinal No gastroesophageal reflux 12/10/2014 Gastrointestinal No nausea 12/10/2014 Gastrointestinal No vomiting 12/10/2014 Genitourinary/Nephrology No dysuria 12/10 Genitourinary/Nephrology No nocturia Genitourinary/Nephrology No urinary incontinence 12/10/2014 Musculoskeletal No stiffness 12/10/2014 Musculoskeletal No swelling 12/10/2014 Musculoskeletal No muscle weakness 2014 Musculoskeletal No myalgias 12/10/2014 Dermatologic No rash 12/10/2014 Dermatologic No sores 12/10/2014 Dermatologic No scar 12/10/2014 Neurologic No dizziness 12/10/2014 Neurologic No headache 12/10/2014 Neurologic No neck pain 12/10/2014 Neurologic No syncope 12/10/2014 Psychiatric No anxiety 12/10/2014 Psychiatric No depression 12/10/2014 Physical Exam Exam Name System Name Item Name Status Result Effective Dates Notes Full Exam - General 1994 Constitutional general appearance Overall: well developed 06/23/2017 None Full Exam - General 1994 Constitutional general appearance Overall: in no acute distress 06/23/2017 None Full Exam - General 1994 Constitutional general appearance Overall: well nourished 06/23/2017 None Full Exam - General 1994 Constitutional general appearance Hygiene/Attention to Grooming: good hygiene 06/23/2017 None Full Exam - General 1994 Eyes conjunctiva /eyelids Overall: conjunctiva clear 06/23/2017 None Full Exam - General 1994 Eyes conjunctiva /eyelids Overall: eyelids normal 06/23/2017 None Full Exam - General 1994 Ears/Nose/Throat lips/teeth/gingiva Overall: benign lips 06/23/2017 None Full Exam - General 1994 Ears/Nose/Throat oral cavity/pharynx/larynx Overall: oral mucosa clear 06/23/2017 None Full Exam - General 1994 Respiratory auscultation Overall: breath sounds clear bilaterally 06/23/2017 None Full Exam - General 1994 Respiratory respiratory effort/rhythm Overall: no retractions 06/23/2017 None Full Exam - General 1994 Respiratory respiratory effort/rhythm Overall: normal rate 06/23/2017 None Full Exam - General 1994 Cardiovascular extremities Overall: no clubbing 06/23/2017 None Full Exam - General 1994 Cardiovascular auscultation of heart Overall: regular rate 06/23/2017 None Full Exam - General 1994 Cardiovascular auscultation of heart Overall: normal heart sounds 06/23/2017 None Full Exam - General 1994 Abdomen abdominal exam Overall: no tenderness 06/23/2017 None Full Exam - General 1994 Abdomen abdominal exam Overall: normal bowel sounds 06/23/2017 None Full Exam - General 1994 Musculoskeletal spine, ribs and pelvis Posture: kyphosis 06/23/2017 None Full Exam - General 1994 Musculoskeletal head and neck Overall: cervical spine benign 06/23/2017 None Full Exam - General 1994 Neurologic mental status Overall: alert 06/23/2017 None Full Exam - General 1994 Neurologic mental status Overall: oriented 06/23/2017 None Full Exam - General 1994 Neurologic cranial nerves Overall: crainial nerves 2 - 12 grossly intact 06/23/2017 None Full Exam - General 1994 Psychiatric orientation/consciousness Overall: oriented to person, place and time 06/23/2017 None Full Exam - General 1994 Psychiatric mood and affect Overall: normal mood and affect 06/23/2017 None Full Exam - General 1994 Psychiatric appearance Overall: well-groomed, good eye contact 06/23/2017 None Full Exam - General 1994 Constitutional general appearance Overall: well developed 03/24/2017 None Full Exam - General 1994 Constitutional general appearance Overall: in no acute distress 03/24/2017 None Full Exam - General 1994 Constitutional general appearance Overall: well nourished 03/24/2017 None Full Exam - General 1994 Constitutional general appearance Hygiene/Attention to Grooming: good hygiene 03/24/2017 None Full Exam - General 1994 Eyes conjunctiva /eyelids Overall: conjunctiva clear 03/24/2017 None Full Exam - General 1994 Eyes conjunctiva /eyelids Overall: eyelids normal 03/24/2017 None Full Exam - General 1994 Ears/Nose/Throat lips/teeth/gingiva Overall: benign lips 03/24/2017 None Full Exam - General 1994 Ears/Nose/Throat oral cavity/pharynx/larynx Overall: oral mucosa clear 03/24/2017 None Full Exam - General 1994 Respiratory auscultation Overall: breath sounds clear bilaterally 03/24/2017 None Full Exam - General 1994 Respiratory respiratory effort/rhythm Overall: no retractions 03/24/2017 None Full Exam - General 1994 Respiratory respiratory effort/rhythm Overall: normal rate 03/24/2017 None Full Exam - General 1994 Cardiovascular extremities Overall: no clubbing 03/24/2017 None Full Exam - General 1994 Cardiovascular auscultation of heart Overall: regular rate 03/24/2017 None Full Exam - General 1994 Cardiovascular auscultation of heart Overall: normal heart sounds 03/24/2017 None Full Exam - General 1994 Musculoskeletal spine, ribs and pelvis Posture: kyphosis 03/24/2017 None Full Exam - General 1994 Musculoskeletal head and neck Overall: cervical spine benign 03/24/2017 None Full Exam - General 1994 Neurologic mental status Overall: alert 03/24/2017 None Full Exam - General 1994 Neurologic mental status Overall: oriented 03/24/2017 None Full Exam - General 1994 Neurologic cranial nerves Overall: crainial nerves 2 - 12 grossly intact 03/24/2017 None Full Exam - General 1994 Psychiatric orientation/consciousness Overall: oriented to person, place and time 03/24/2017 None Full Exam - General 1994 Psychiatric mood and affect Overall: normal mood and affect 03/24/2017 None Full Exam - General 1994 Psychiatric appearance Overall: well-groomed, good eye contact 03/24/2017 None Full Exam - General 1994 Abdomen abdominal exam Overall: no tenderness 03/24/2017 None Full Exam - General 1994 Abdomen abdominal exam Overall: normal bowel sounds 03/24/2017 None Full Exam - General 1994 Constitutional general appearance Overall: well developed 12/24/2016 None Full Exam - General 1994 Constitutional general appearance Overall: in no acute distress 12/24/2016 None Full Exam - General 1994 Constitutional general appearance Overall: well nourished 12/24/2016 None Full Exam - General 1994 Eyes conjunctiva /eyelids Overall: conjunctiva clear 12/24/2016 None Full Exam - General 1994 Eyes conjunctiva /eyelids Overall: eyelids normal 12/24/2016 None Full Exam - General 1994 Eyes pupils and irises Overall: pupils equal, round, reactive to light and accomodation 12/24/2016 None Full Exam - General 1994 Ears/Nose/Throat otoscopic exam Overall: external auditory canals clear 12/24/2016 None Full Exam - General 1994 Ears/Nose/Throat otoscopic exam Overall: tympanic membranes clear 12/24/2016 None Full Exam - General 1994 Ears/Nose/Throat lips/teeth/gingiva Overall: benign lips 12/24/2016 None Full Exam - General 1994 Ears/Nose/Throat oral cavity/pharynx/larynx Overall: oral mucosa clear 12/24/2016 None Full Exam - General 1994 Ears/Nose/Throat oral cavity/pharynx/larynx Overall: oropharyngeal mucosa clear 12/24/2016 None Full Exam - General 1994 Respiratory respiratory effort/rhythm Overall: no retractions 12/24/2016 None Full Exam - General 1994 Respiratory respiratory effort/rhythm Overall: normal rate 12/24/2016 None Full Exam - General 1994 Respiratory auscultation Overall: breath sounds clear bilaterally 12/24/2016 None Full Exam - General 1994 Cardiovascular auscultation of heart Overall: regular rate 12/24/2016 None Full Exam - General 1994 Cardiovascular auscultation of heart Overall: normal heart sounds 12/24/2016 None Full Exam - General 1994 Abdomen abdominal exam Overall: normal bowel sounds 12/24/2016 None Full Exam - General 1994 Musculoskeletal head and neck Overall: head atraumatic 12/24/2016 None Full Exam - General 1994 Neurologic cranial nerves Overall: crainial nerves 2 - 12 grossly intact 12/24/2016 None Full Exam - General 1994 Psychiatric orientation/consciousness Overall: oriented to person, place and time 12/24/2016 None Full Exam - General 1994 Psychiatric mood and affect Overall: normal mood and affect 12/24/2016 None Full Exam - General 1994 Psychiatric appearance Overall: well-groomed, good eye contact 12/24/2016 None Full Exam - General 1994 Constitutional general appearance Overall: well developed 11/10/2016 None Full Exam - General 1994 Constitutional general appearance Overall: in no acute distress 11/10/2016 None Full Exam - General 1994 Constitutional general appearance Overall: well nourished 11/10/2016 None Full Exam - General 1994 Constitutional general appearance Hygiene/Attention to Grooming: good hygiene 11/10/2016 None Full Exam - General 1994 Eyes conjunctiva /eyelids Overall: conjunctiva clear 11/10/2016 None Full Exam - General 1994 Eyes conjunctiva /eyelids Overall: eyelids normal 11/10/2016 None Full Exam - General 1994 Ears/Nose/Throat lips/teeth/gingiva Overall: benign lips 11/10/2016 None Full Exam - General 1994 Ears/Nose/Throat oral cavity/pharynx/larynx Overall: oral mucosa clear 11/10/2016 None Full Exam - General 1994 Respiratory auscultation Overall: breath sounds clear bilaterally 11/10/2016 None Full Exam - General 1994 Respiratory respiratory effort/rhythm Overall: no retractions 11/10/2016 None Full Exam - General 1994 Respiratory respiratory effort/rhythm Overall: normal rate 11/10/2016 None Full Exam - General 1994 Cardiovascular extremities Overall: no clubbing 11/10/2016 None Full Exam - General 1994 Cardiovascular auscultation of heart Overall: regular rate 11/10/2016 None Full Exam - General 1994 Cardiovascular auscultation of heart Overall: normal heart sounds 11/10/2016 None Full Exam - General 1994 Musculoskeletal spine, ribs and pelvis Posture: kyphosis 11/10/2016 None Full Exam - General 1994 Musculoskeletal head and neck Overall: cervical spine benign 11/10/2016 None Full Exam - General 1994 Neurologic mental status Overall: alert 11/10/2016 None Full Exam - General 1994 Neurologic mental status Overall: oriented 11/10/2016 None Full Exam - General 1994 Neurologic cranial nerves Overall: crainial nerves 2 - 12 grossly intact 11/10/2016 None Full Exam - General 1994 Psychiatric orientation/consciousness Overall: oriented to person, place and time 11/10/2016 None Full Exam - General 1994 Psychiatric mood and affect Overall: normal mood and affect 11/10/2016 None Full Exam - General 1994 Psychiatric appearance Overall: well-groomed, good eye contact 11/10/2016 None Full Exam - General 1994 Constitutional general appearance Overall: well developed 10/06/2016 None Full Exam - General 1994 Constitutional general appearance Overall: in no acute distress 10/06/2016 None Full Exam - General 1994 Constitutional general appearance Overall: well nourished 10/06/2016 None Full Exam - General 1994 Constitutional general appearance Hygiene/Attention to Grooming: good hygiene 10/06/2016 None Full Exam - General 1994 Eyes conjunctiva /eyelids Overall: conjunctiva clear 10/06/2016 None Full Exam - General 1994 Eyes conjunctiva /eyelids Overall: eyelids normal 10/06/2016 None Full Exam - General 1994 Ears/Nose/Throat lips/teeth/gingiva Overall: benign lips 10/06/2016 None Full Exam - General 1994 Ears/Nose/Throat oral cavity/pharynx/larynx Overall: oral mucosa clear 10/06/2016 None Full Exam - General 1994 Respiratory auscultation Overall: breath sounds clear bilaterally 10/06/2016 None Full Exam - General 1994 Respiratory respiratory effort/rhythm Overall: no retractions 10/06/2016 None Full Exam - General 1994 Respiratory respiratory effort/rhythm Overall: normal rate 10/06/2016 None Full Exam - General 1994 Cardiovascular extremities Overall: no clubbing 10/06/2016 None Full Exam - General 1994 Cardiovascular auscultation of heart Overall: regular rate 10/06/2016 None Full Exam - General 1994 Cardiovascular auscultation of heart Overall: normal heart sounds 10/06/2016 None Full Exam - General 1994 Musculoskeletal spine, ribs and pelvis Posture: kyphosis 10/06/2016 None Full Exam - General 1994 Musculoskeletal head and neck Overall: cervical spine benign 10/06/2016 None Full Exam - General 1994 Neurologic mental status Overall: alert 10/06/2016 None Full Exam - General 1994 Neurologic mental status Overall: oriented 10/06/2016 None Full Exam - General 1994 Neurologic cranial nerves Overall: crainial nerves 2 - 12 grossly intact 10/06/2016 None Full Exam - General 1994 Psychiatric orientation/consciousness Overall: oriented to person, place and time 10/06/2016 None Full Exam - General 1994 Psychiatric mood and affect Overall: normal mood and affect 10/06/2016 None Full Exam - General 1994 Psychiatric appearance Overall: well-groomed, good eye contact 10/06/2016 None Full Exam - General 1994 Abdomen abdominal exam Overall: normal bowel sounds 10/06/2016 None Full Exam - General 1994 Abdomen abdominal exam Overall: no tenderness 10/06/2016 None Full Exam - General 1994 Constitutional general appearance Overall: well developed 09/08/2016 None Full Exam - General 1994 Constitutional general appearance Overall: in no acute distress 09/08/2016 None Full Exam - General 1994 Constitutional general appearance Overall: well nourished 09/08/2016 None Full Exam - General 1994 Constitutional general appearance Hygiene/Attention to Grooming: good hygiene 09/08/2016 None Full Exam - General 1994 Eyes conjunctiva /eyelids Overall: conjunctiva clear 09/08/2016 None Full Exam - General 1994 Eyes conjunctiva /eyelids Overall: eyelids normal 09/08/2016 None Full Exam - General 1994 Ears/Nose/Throat lips/teeth/gingiva Overall: benign lips 09/08/2016 None Full Exam - General 1994 Ears/Nose/Throat oral cavity/pharynx/larynx Overall: oral mucosa clear 09/08/2016 None Full Exam - General 1994 Respiratory auscultation Overall: breath sounds clear bilaterally 09/08/2016 None Full Exam - General 1994 Respiratory respiratory effort/rhythm Overall: no retractions 09/08/2016 None Full Exam - General 1994 Respiratory respiratory effort/rhythm Overall: normal rate 09/08/2016 None Full Exam - General 1994 Cardiovascular extremities Overall: no clubbing 09/08/2016 None Full Exam - General 1994 Cardiovascular auscultation of heart Overall: regular rate 09/08/2016 None Full Exam - General 1994 Cardiovascular auscultation of heart Overall: normal heart sounds 09/08/2016 None Full Exam - General 1994 Musculoskeletal spine, ribs and pelvis Posture: kyphosis 09/08/2016 None Full Exam - General 1994 Musculoskeletal head and neck Overall: cervical spine benign 09/08/2016 None Full Exam - General 1994 Neurologic mental status Overall: alert 09/08/2016 None Full Exam - General 1994 Neurologic mental status Overall: oriented 09/08/2016 None Full Exam - General 1994 Neurologic cranial nerves Overall: crainial nerves 2 - 12 grossly intact 09/08/2016 None Full Exam - General 1994 Psychiatric orientation/consciousness Overall: oriented to person, place and time 09/08/2016 None Full Exam - General 1994 Psychiatric mood and affect Overall: normal mood and affect 09/08/2016 None Full Exam - General 1994 Psychiatric appearance Overall: well-groomed, good eye contact 09/08/2016 None Full Exam - General 1994 Constitutional general appearance Hygiene/Attention to Grooming: good hygiene 08/25/2016 None Full Exam - General 1994 Eyes conjunctiva /eyelids Overall: conjunctiva clear 08/25/2016 None Full Exam - General 1994 Eyes conjunctiva /eyelids Overall: eyelids normal 08/25/2016 None Full Exam - General 1994 Ears/Nose/Throat lips/teeth/gingiva Overall: benign lips 08/25/2016 None Full Exam - General 1994 Ears/Nose/Throat oral cavity/pharynx/larynx Overall: oral mucosa clear 08/25/2016 None Full Exam - General 1994 Respiratory auscultation Overall: breath sounds clear bilaterally 08/25/2016 None Full Exam - General 1994 Respiratory respiratory effort/rhythm Overall: no retractions 08/25/2016 None Full Exam - General 1994 Respiratory respiratory effort/rhythm Overall: normal rate 08/25/2016 None Full Exam - General 1994 Cardiovascular extremities Overall: no clubbing 08/25/2016 None Full Exam - General 1994 Cardiovascular auscultation of heart Overall: regular rate 08/25/2016 None Full Exam - General 1994 Cardiovascular auscultation of heart Overall: normal heart sounds 08/25/2016 None Full Exam - General 1994 Musculoskeletal spine, ribs and pelvis Posture: kyphosis 08/25/2016 None Full Exam - General 1994 Musculoskeletal head and neck Overall: cervical spine benign 08/25/2016 None Full Exam - General 1994 Neurologic mental status Overall: alert 08/25/2016 None Full Exam - General 1994 Neurologic mental status Overall: oriented 08/25/2016 None Full Exam - General 1994 Neurologic cranial nerves Overall: crainial nerves 2 - 12 grossly intact 08/25/2016 None Full Exam - General 1994 Psychiatric orientation/consciousness Overall: oriented to person, place and time 08/25/2016 None Full Exam - General 1994 Psychiatric mood and affect Overall: normal mood and affect 08/25/2016 None Full Exam - General 1994 Constitutional general appearance Overall: well developed 08/25/2016 None Full Exam - General 1994 Constitutional general appearance Overall: in no acute distress 08/25/2016 None Full Exam - General 1994 Constitutional general appearance Overall: well nourished 08/25/2016 None Full Exam - General 1994 Psychiatric appearance Overall: well-groomed, good eye contact 08/25/2016 None Full Exam - General 1994 Constitutional general appearance Development: well developed 08/11/2016 None Full Exam - General 1994 Constitutional general appearance Development: appears stated age 0308/11/2016 None Full Exam - General 1994 Constitutional general appearance Hygiene/Attention to Grooming: good hygiene 08/11/2016 None Full Exam - General 1994 Eyes conjunctiva /eyelids Overall: conjunctiva clear 08/11/2016 None Full Exam - General 1994 Eyes conjunctiva /eyelids Overall: cornea clear 08/11/2016 None Full Exam - General 1994 Eyes conjunctiva /eyelids Overall: eyelids normal 08/11/2016 None Full Exam - General 1994 Eyes pupils and irises Overall: pupils equal, round, reactive to light and accomodation 08/11/2016 None Full Exam - General 1994 Ears/Nose/Throat lips/teeth/gingiva Overall: benign lips 08/11/2016 None Full Exam - General 1994 Ears/Nose/Throat lips/teeth/gingiva Overall: normal dentition 08/11/2016 None Full Exam - General 1994 Ears/Nose/Throat oral cavity/pharynx/larynx Overall: oral mucosa clear 08/11/2016 None Full Exam - General 1994 Ears/Nose/Throat oral cavity/pharynx/larynx Overall: oropharyngeal mucosa clear 08/11/2016 None Full Exam - General 1994 Ears/Nose/Throat oral cavity/pharynx/larynx Overall: hypopharynx benign 08/11/2016 None Full Exam - General 1994 Ears/Nose/Throat oral cavity/pharynx/larynx Overall: no masses 08/11/2016 None Full Exam - General 1994 Respiratory auscultation Overall: breath sounds clear bilaterally 08/11/2016 None Full Exam - General 1994 Respiratory respiratory effort/rhythm Overall: no retractions 08/11/2016 None Full Exam - General 1994 Respiratory respiratory effort/rhythm Overall: normal rate 08/11/2016 None Full Exam - General 1994 Cardiovascular extremities Overall: no clubbing 08/11/2016 None Full Exam - General 1994 Cardiovascular auscultation of heart Overall: regular rate 08/11/2016 None Full Exam - General 1994 Cardiovascular auscultation of heart Overall: normal heart sounds 08/11/2016 None Full Exam - General 1994 Abdomen abdominal exam Overall: no tenderness 08/11/2016 None Full Exam - General 1994 Abdomen abdominal exam Overall: normal bowel sounds 08/11/2016 None Full Exam - General 1994 Lymphatic neck nodes Overall: anterior cervical chain benign 08/11/2016 None Full Exam - General 1994 Lymphatic neck nodes Overall: posterior cervical chain benign 08/11/2016 None Full Exam - General 1994 Musculoskeletal spine, ribs and pelvis Overall: sacroiliac joint benign 08/11/2016 None Full Exam - General 1994 Musculoskeletal spine, ribs and pelvis Posture: kyphosis 08/11/2016 None Full Exam - General 1994 Musculoskeletal head and neck Overall: cervical spine benign 08/11/2016 None Full Exam - General 1994 Musculoskeletal head and neck Deformities: no deformities 08/11/2016 None Full Exam - General 1994 Integument inspection of skin Overall: few scattered moles, no gross abnormalities 08/11/2016 None Full Exam - General 1994 Neurologic mental status Overall: alert 08/11/2016 None Full Exam - General 1994 Neurologic mental status Overall: oriented 08/11/2016 None Full Exam - General 1994 Neurologic cranial nerves Overall: crainial nerves 2 - 12 grossly intact 08/11/2016 None Full Exam - General 1994 Psychiatric orientation/consciousness Overall: oriented to person, place and time 08/11/2016 None Full Exam - General 1994 Psychiatric mood and affect Overall: normal mood and affect 08/11/2016 None Full Exam - General 1994 Constitutional general appearance Development: well developed 07/14/2016 None Full Exam - General 1994 Constitutional general appearance Development: appears stated age 0207/14/2016 None Full Exam - General 1994 Constitutional general appearance Hygiene/Attention to Grooming: good hygiene 07/14/2016 None Full Exam - General 1994 Eyes conjunctiva /eyelids Overall: conjunctiva clear 07/14/2016 None Full Exam - General 1994 Eyes conjunctiva /eyelids Overall: cornea clear 07/14/2016 None Full Exam - General 1994 Eyes conjunctiva /eyelids Overall: eyelids normal 07/14/2016 None Full Exam - General 1994 Eyes pupils and irises Overall: pupils equal, round, reactive to light and accomodation 07/14/2016 None Full Exam - General 1994 Ears/Nose/Throat lips/teeth/gingiva Overall: benign lips 07/14/2016 None Full Exam - General 1994 Ears/Nose/Throat lips/teeth/gingiva Overall: normal dentition 07/14/2016 None Full Exam - General 1994 Ears/Nose/Throat oral cavity/pharynx/larynx Overall: oral mucosa clear 07/14/2016 None Full Exam - General 1994 Ears/Nose/Throat oral cavity/pharynx/larynx Overall: oropharyngeal mucosa clear 07/14/2016 None Full Exam - General 1994 Ears/Nose/Throat oral cavity/pharynx/larynx Overall: hypopharynx benign 07/14/2016 None Full Exam - General 1994 Ears/Nose/Throat oral cavity/pharynx/larynx Overall: no masses 07/14/2016 None Full Exam - General 1994 Respiratory auscultation Overall: breath sounds clear bilaterally 07/14/2016 None Full Exam - General 1994 Respiratory respiratory effort/rhythm Overall: no retractions 07/14/2016 None Full Exam - General 1994 Respiratory respiratory effort/rhythm Overall: normal rate 07/14/2016 None Full Exam - General 1994 Cardiovascular extremities Overall: no clubbing 07/14/2016 None Full Exam - General 1994 Cardiovascular auscultation of heart Overall: regular rate 07/14/2016 None Full Exam - General 1994 Cardiovascular auscultation of heart Overall: normal heart sounds 07/14/2016 None Full Exam - General 1994 Abdomen abdominal exam Overall: no tenderness 07/14/2016 None Full Exam - General 1994 Abdomen abdominal exam Overall: normal bowel sounds 07/14/2016 None Full Exam - General 1994 Lymphatic neck nodes Overall: anterior cervical chain benign 07/14/2016 None Full Exam - General 1994 Lymphatic neck nodes Overall: posterior cervical chain benign 07/14/2016 None Full Exam - General 1994 Musculoskeletal spine, ribs and pelvis Overall: sacroiliac joint benign 07/14/2016 None Full Exam - General 1994 Musculoskeletal spine, ribs and pelvis Posture: kyphosis 07/14/2016 None Full Exam - General 1994 Musculoskeletal head and neck Overall: cervical spine benign 07/14/2016 None Full Exam - General 1994 Musculoskeletal head and neck Deformities: no deformities 07/14/2016 None Full Exam - General 1994 Integument inspection of skin Overall: few scattered moles, no gross abnormalities 07/14/2016 None Full Exam - General 1994 Neurologic mental status Overall: alert 07/14/2016 None Full Exam - General 1994 Neurologic mental status Overall: oriented 07/14/2016 None Full Exam - General 1994 Neurologic cranial nerves Overall: crainial nerves 2 - 12 grossly intact 07/14/2016 None Full Exam - General 1994 Psychiatric orientation/consciousness Overall: oriented to person, place and time 07/14/2016 None Full Exam - General 1994 Psychiatric mood and affect Overall: normal mood and affect 07/14/2016 None Full Exam - General 1994 Constitutional general appearance Development: well developed 05/19/2016 None Full Exam - General 1994 Constitutional general appearance Development: appears stated age 1205/19/2016 None Full Exam - General 1994 Constitutional general appearance Hygiene/Attention to Grooming: good hygiene 05/19/2016 None Full Exam - General 1994 Eyes conjunctiva /eyelids Overall: conjunctiva clear 05/19/2016 None Full Exam - General 1994 Eyes conjunctiva /eyelids Overall: cornea clear 05/19/2016 None Full Exam - General 1994 Eyes conjunctiva /eyelids Overall: eyelids normal 05/19/2016 None Full Exam - General 1994 Eyes pupils and irises Overall: pupils equal, round, reactive to light and accomodation 05/19/2016 None Full Exam - General 1994 Ears/Nose/Throat lips/teeth/gingiva Overall: benign lips 05/19/2016 None Full Exam - General 1994 Ears/Nose/Throat lips/teeth/gingiva Overall: normal dentition 05/19/2016 None Full Exam - General 1994 Ears/Nose/Throat oral cavity/pharynx/larynx Overall: oral mucosa clear 05/19/2016 None Full Exam - General 1994 Ears/Nose/Throat oral cavity/pharynx/larynx Overall: oropharyngeal mucosa clear 05/19/2016 None Full Exam - General 1994 Ears/Nose/Throat oral cavity/pharynx/larynx Overall: hypopharynx benign 05/19/2016 None Full Exam - General 1994 Ears/Nose/Throat oral cavity/pharynx/larynx Overall: no masses 05/19/2016 None Full Exam - General 1994 Respiratory auscultation Overall: breath sounds clear bilaterally 05/19/2016 None Full Exam - General 1994 Respiratory respiratory effort/rhythm Overall: no retractions 05/19/2016 None Full Exam - General 1994 Respiratory respiratory effort/rhythm Overall: normal rate 05/19/2016 None Full Exam - General 1994 Cardiovascular extremities Overall: no clubbing 05/19/2016 None Full Exam - General 1994 Cardiovascular auscultation of heart Overall: regular rate 05/19/2016 None Full Exam - General 1994 Cardiovascular auscultation of heart Overall: normal heart sounds 05/19/2016 None Full Exam - General 1994 Abdomen abdominal exam Overall: no tenderness 05/19/2016 None Full Exam - General 1994 Abdomen abdominal exam Overall: normal bowel sounds 05/19/2016 None Full Exam - General 1994 Lymphatic neck nodes Overall: anterior cervical chain benign 05/19/2016 None Full Exam - General 1994 Lymphatic neck nodes Overall: posterior cervical chain benign 05/19/2016 None Full Exam - General 1994 Musculoskeletal spine, ribs and pelvis Overall: sacroiliac joint benign 05/19/2016 None Full Exam - General 1994 Musculoskeletal spine, ribs and pelvis Posture: kyphosis 05/19/2016 None Full Exam - General 1994 Musculoskeletal head and neck Overall: cervical spine benign 05/19/2016 None Full Exam - General 1994 Musculoskeletal head and neck Deformities: no deformities 05/19/2016 None Full Exam - General 1994 Integument inspection of skin Overall: few scattered moles, no gross abnormalities 05/19/2016 None Full Exam - General 1994 Neurologic mental status Overall: alert 05/19/2016 None Full Exam - General 1994 Neurologic mental status Overall: oriented 05/19/2016 None Full Exam - General 1994 Neurologic cranial nerves Overall: crainial nerves 2 - 12 grossly intact 05/19/2016 None Full Exam - General 1994 Psychiatric orientation/consciousness Overall: oriented to person, place and time 05/19/2016 None Full Exam - General 1994 Psychiatric mood and affect Overall: normal mood and affect 05/19/2016 None Full Exam - General 1994 Constitutional general appearance Development: well developed 03/23/2016 None Full Exam - General 1994 Constitutional general appearance Development: appears stated age 1003/23/2016 None Full Exam - General 1994 Constitutional general appearance Hygiene/Attention to Grooming: good hygiene 03/23/2016 None Full Exam - General 1994 Eyes conjunctiva /eyelids Overall: conjunctiva clear 03/23/2016 None Full Exam - General 1994 Eyes conjunctiva /eyelids Overall: cornea clear 03/23/2016 None Full Exam - General 1994 Eyes conjunctiva /eyelids Overall: eyelids normal 03/23/2016 None Full Exam - General 1994 Eyes pupils and irises Overall: pupils equal, round, reactive to light and accomodation 03/23/2016 None Full Exam - General 1994 Ears/Nose/Throat lips/teeth/gingiva Overall: benign lips 03/23/2016 None Full Exam - General 1994 Ears/Nose/Throat lips/teeth/gingiva Overall: normal dentition 03/23/2016 None Full Exam - General 1994 Ears/Nose/Throat oral cavity/pharynx/larynx Overall: oral mucosa clear 03/23/2016 None Full Exam - General 1994 Ears/Nose/Throat oral cavity/pharynx/larynx Overall: oropharyngeal mucosa clear 03/23/2016 None Full Exam - General 1994 Ears/Nose/Throat oral cavity/pharynx/larynx Overall: hypopharynx benign 03/23/2016 None Full Exam - General 1994 Ears/Nose/Throat oral cavity/pharynx/larynx Overall: no masses 03/23/2016 None Full Exam - General 1994 Respiratory auscultation Overall: breath sounds clear bilaterally 03/23/2016 None Full Exam - General 1994 Respiratory respiratory effort/rhythm Overall: no retractions 03/23/2016 None Full Exam - General 1994 Respiratory respiratory effort/rhythm Overall: normal rate 03/23/2016 None Full Exam - General 1994 Cardiovascular extremities Overall: no clubbing 03/23/2016 None Full Exam - General 1994 Cardiovascular auscultation of heart Overall: regular rate 03/23/2016 None Full Exam - General 1994 Cardiovascular auscultation of heart Overall: normal heart sounds 03/23/2016 None Full Exam - General 1994 Abdomen abdominal exam Overall: no tenderness 03/23/2016 None Full Exam - General 1994 Abdomen abdominal exam Overall: normal bowel sounds 03/23/2016 None Full Exam - General 1994 Lymphatic neck nodes Overall: anterior cervical chain benign 03/23/2016 None Full Exam - General 1994 Lymphatic neck nodes Overall: posterior cervical chain benign 03/23/2016 None Full Exam - General 1994 Musculoskeletal spine, ribs and pelvis Overall: sacroiliac joint benign 03/23/2016 None Full Exam - General 1994 Musculoskeletal spine, ribs and pelvis Posture: kyphosis 03/23/2016 None Full Exam - General 1994 Musculoskeletal head and neck Overall: cervical spine benign 03/23/2016 None Full Exam - General 1994 Musculoskeletal head and neck Deformities: no deformities 03/23/2016 None Full Exam - General 1994 Integument inspection of skin Overall: few scattered moles, no gross abnormalities 03/23/2016 None Full Exam - General 1994 Neurologic mental status Overall: alert 03/23/2016 None Full Exam - General 1994 Neurologic mental status Overall: oriented 03/23/2016 None Full Exam - General 1994 Neurologic cranial nerves Overall: crainial nerves 2 - 12 grossly intact 03/23/2016 None Full Exam - General 1994 Psychiatric orientation/consciousness Overall: oriented to person, place and time 03/23/2016 None Full Exam - General 1994 Psychiatric mood and affect Overall: normal mood and affect 03/23/2016 None Full Exam - General 1994 Constitutional general appearance Assistive Device: walker 03/23/2016 None Full Exam - Cardiology Eyes conjunctiva/ eyelids Overall: conjunctiva clear 03/05/2016 None Full Exam - Cardiology Eyes conjunctiva/ eyelids Overall: cornea clear 03/05/2016 None Full Exam - Cardiology Eyes conjunctiva/ eyelids Overall: eyelids normal 03/05/2016 None Full Exam - Cardiology Ears/Nose/Throat oral mucosa Overall: oral mucosa clear 03/05/2016 None Full Exam - Cardiology Respiratory respiratory effort/rhythm Overall: no retractions 03/05/2016 None Full Exam - Cardiology Respiratory respiratory effort/rhythm Overall: normal rate 03/05/2016 None Full Exam - Cardiology Respiratory auscultation Overall: breath sounds clear bilaterally 03/05/2016 None Full Exam - Cardiology Cardiovascular auscultation of heart Overall: regular rate 03/05/2016 None Full Exam - Cardiology Cardiovascular auscultation of heart Overall: normal heart sounds 03/05/2016 None Full Exam - Cardiology Cardiovascular auscultation of heart Overall: no murmurs 03/05/2016 None Full Exam - Cardiology Abdomen abdominal exam Overall: no tenderness 03/05/2016 None Full Exam - Cardiology Abdomen abdominal exam Overall: normal bowel sounds 03/05/2016 None Full Exam - Cardiology Musculoskeletal muscle strength and tone Overall: normal strength 03/05/2016 None Full Exam - Cardiology Musculoskeletal muscle strength and tone Overall: normal tone 03/05/2016 None Full Exam - Cardiology Musculoskeletal muscle strength and tone Muscle Strength/Tone - right hip: weakness 03/05/2016 None Full Exam - Cardiology Integument inspection/palpation Overall: no rash, lesions 03/05/2016 None Full Exam - Cardiology Neurologic mental status Overall: alert 03/05/2016 None Full Exam - Cardiology Neurologic mental status Overall: oriented 03/05/2016 None Full Exam - Cardiology Neurologic motor Strength (graded from 0-5, add X for atrophy): right foot flexors: 4 03/05/2016 None Full Exam - Cardiology Psychiatric orientation/consciousness Overall: oriented to person, place and time 03/05/2016 None Full Exam - Cardiology Constitutional general appearance Overall: in no acute distress 03/05/2016 None Full Exam - Cardiology Eyes conjunctiva/ eyelids Overall: conjunctiva clear 02/27/2016 None Full Exam - Cardiology Eyes conjunctiva/ eyelids Overall: cornea clear 02/27/2016 None Full Exam - Cardiology Eyes conjunctiva/ eyelids Overall: eyelids normal 02/27/2016 None Full Exam - Cardiology Ears/Nose/Throat oral mucosa Overall: oral mucosa clear 02/27/2016 None Full Exam - Cardiology Respiratory respiratory effort/rhythm Overall: no retractions 02/27/2016 None Full Exam - Cardiology Respiratory respiratory effort/rhythm Overall: normal rate 02/27/2016 None Full Exam - Cardiology Respiratory auscultation Overall: breath sounds clear bilaterally 02/27/2016 None Full Exam - Cardiology Cardiovascular auscultation of heart Overall: regular rate 02/27/2016 None Full Exam - Cardiology Cardiovascular auscultation of heart Overall: normal heart sounds 02/27/2016 None Full Exam - Cardiology Cardiovascular auscultation of heart Overall: no murmurs 02/27/2016 None Full Exam - Cardiology Abdomen abdominal exam Overall: no tenderness 02/27/2016 None Full Exam - Cardiology Abdomen abdominal exam Overall: normal bowel sounds 02/27/2016 None Full Exam - Cardiology Musculoskeletal muscle strength and tone Muscle Strength/Tone - right hip: weakness 02/27/2016 None Full Exam - Cardiology Integument inspection/palpation Overall: no rash, lesions 02/27/2016 None Full Exam - Cardiology Neurologic mental status Overall: alert 02/27/2016 None Full Exam - Cardiology Neurologic mental status Overall: oriented 02/27/2016 None Full Exam - Cardiology Neurologic motor Strength (graded from 0-5, add X for atrophy): right foot flexors: 4 02/27/2016 None Full Exam - Cardiology Psychiatric orientation/consciousness Overall: oriented to person, place and time 02/27/2016 None Full Exam - Cardiology Constitutional general appearance Overall: in no acute distress 02/27/2016 None Full Exam - Cardiology Musculoskeletal muscle strength and tone Overall: normal strength 02/27/2016 None Full Exam - Cardiology Musculoskeletal muscle strength and tone Overall: normal tone 02/27/2016 None Full Exam - General 1994 Constitutional general appearance Development: well developed 01/28/2016 None Full Exam - General 1994 Constitutional general appearance Development: appears stated age 0801/28/2016 None Full Exam - General 1994 Constitutional general appearance Hygiene/Attention to Grooming: good hygiene 01/28/2016 None Full Exam - General 1994 Eyes conjunctiva /eyelids Overall: conjunctiva clear 01/28/2016 None Full Exam - General 1994 Eyes conjunctiva /eyelids Overall: cornea clear 01/28/2016 None Full Exam - General 1994 Eyes conjunctiva /eyelids Overall: eyelids normal 01/28/2016 None Full Exam - General 1994 Eyes pupils and irises Overall: pupils equal, round, reactive to light and accomodation 01/28/2016 None Full Exam - General 1994 Ears/Nose/Throat otoscopic exam Overall: external auditory canals clear 01/28/2016 None Full Exam - General 1994 Ears/Nose/Throat otoscopic exam Overall: tympanic membranes clear 01/28/2016 None Full Exam - General 1994 Ears/Nose/Throat lips/teeth/gingiva Overall: benign lips 01/28/2016 None Full Exam - General 1994 Ears/Nose/Throat lips/teeth/gingiva Overall: normal dentition 01/28/2016 None Full Exam - General 1994 Ears/Nose/Throat oral cavity/pharynx/larynx Overall: oral mucosa clear 01/28/2016 None Full Exam - General 1994 Ears/Nose/Throat oral cavity/pharynx/larynx Overall: oropharyngeal mucosa clear 01/28/2016 None Full Exam - General 1994 Ears/Nose/Throat oral cavity/pharynx/larynx Overall: hypopharynx benign 01/28/2016 None Full Exam - General 1994 Ears/Nose/Throat oral cavity/pharynx/larynx Overall: no masses 01/28/2016 None Full Exam - General 1994 Respiratory auscultation Overall: breath sounds clear bilaterally 01/28/2016 None Full Exam - General 1994 Respiratory respiratory effort/rhythm Overall: no retractions 01/28/2016 None Full Exam - General 1994 Respiratory respiratory effort/rhythm Overall: normal rate 01/28/2016 None Full Exam - General 1994 Cardiovascular extremities Overall: no clubbing 01/28/2016 None Full Exam - General 1994 Cardiovascular auscultation of heart Overall: regular rate 01/28/2016 None Full Exam - General 1994 Cardiovascular auscultation of heart Overall: normal heart sounds 01/28/2016 None Full Exam - General 1994 Abdomen abdominal exam Overall: no tenderness 01/28/2016 None Full Exam - General 1994 Abdomen abdominal exam Overall: normal bowel sounds 01/28/2016 None Full Exam - General 1994 Lymphatic neck nodes Overall: anterior cervical chain benign 01/28/2016 None Full Exam - General 1994 Lymphatic neck nodes Overall: posterior cervical chain benign 01/28/2016 None Full Exam - General 1994 Musculoskeletal spine, ribs and pelvis Overall: sacroiliac joint benign 01/28/2016 None Full Exam - General 1994 Musculoskeletal spine, ribs and pelvis Posture: kyphosis 01/28/2016 None Full Exam - General 1994 Musculoskeletal head and neck Overall: cervical spine benign 01/28/2016 None Full Exam - General 1994 Musculoskeletal head and neck Deformities: no deformities 01/28/2016 None Full Exam - General 1994 Integument inspection of skin Overall: few scattered moles, no gross abnormalities 01/28/2016 None Full Exam - General 1994 Neurologic mental status Overall: alert 01/28/2016 None Full Exam - General 1994 Neurologic mental status Overall: oriented 01/28/2016 None Full Exam - General 1994 Neurologic cranial nerves Overall: crainial nerves 2 - 12 grossly intact 01/28/2016 None Full Exam - General 1994 Psychiatric orientation/consciousness Overall: oriented to person, place and time 01/28/2016 None Full Exam - General 1994 Psychiatric mood and affect Overall: normal mood and affect 01/28/2016 None Full Exam - General 1994 Constitutional general appearance Development: well developed 12/23/2015 None Full Exam - General 1994 Constitutional general appearance Development: appears stated age 0712/23/2015 None Full Exam - General 1994 Constitutional general appearance Hygiene/Attention to Grooming: good hygiene 12/23/2015 None Full Exam - General 1994 Eyes conjunctiva /eyelids Overall: conjunctiva clear 12/23/2015 None Full Exam - General 1994 Eyes conjunctiva /eyelids Overall: cornea clear 12/23/2015 None Full Exam - General 1994 Eyes conjunctiva /eyelids Overall: eyelids normal 12/23/2015 None Full Exam - General 1994 Eyes pupils and irises Overall: pupils equal, round, reactive to light and accomodation 12/23/2015 None Full Exam - General 1994 Ears/Nose/Throat otoscopic exam Overall: external auditory canals clear 12/23/2015 None Full Exam - General 1994 Ears/Nose/Throat otoscopic exam Overall: tympanic membranes clear 12/23/2015 None Full Exam - General 1994 Ears/Nose/Throat lips/teeth/gingiva Overall: benign lips 12/23/2015 None Full Exam - General 1994 Ears/Nose/Throat lips/teeth/gingiva Overall: normal dentition 12/23/2015 None Full Exam - General 1994 Ears/Nose/Throat oral cavity/pharynx/larynx Overall: oral mucosa clear 12/23/2015 None Full Exam - General 1994 Ears/Nose/Throat oral cavity/pharynx/larynx Overall: oropharyngeal mucosa clear 12/23/2015 None Full Exam - General 1994 Ears/Nose/Throat oral cavity/pharynx/larynx Overall: hypopharynx benign 12/23/2015 None Full Exam - General 1994 Ears/Nose/Throat oral cavity/pharynx/larynx Overall: no masses 12/23/2015 None Full Exam - General 1994 Respiratory auscultation Overall: breath sounds clear bilaterally 12/23/2015 None Full Exam - General 1994 Respiratory respiratory effort/rhythm Overall: no retractions 12/23/2015 None Full Exam - General 1994 Respiratory respiratory effort/rhythm Overall: normal rate 12/23/2015 None Full Exam - General 1994 Cardiovascular extremities Overall: no clubbing 12/23/2015 None Full Exam - General 1994 Cardiovascular auscultation of heart Overall: regular rate 12/23/2015 None Full Exam - General 1994 Cardiovascular auscultation of heart Overall: normal heart sounds 12/23/2015 None Full Exam - General 1994 Abdomen abdominal exam Overall: no tenderness 12/23/2015 None Full Exam - General 1994 Abdomen abdominal exam Overall: normal bowel sounds 12/23/2015 None Full Exam - General 1994 Lymphatic neck nodes Overall: anterior cervical chain benign 12/23/2015 None Full Exam - General 1994 Lymphatic neck nodes Overall: posterior cervical chain benign 12/23/2015 None Full Exam - General 1994 Musculoskeletal spine, ribs and pelvis Overall: sacroiliac joint benign 12/23/2015 None Full Exam - General 1994 Musculoskeletal spine, ribs and pelvis Posture: kyphosis 12/23/2015 None Full Exam - General 1994 Musculoskeletal head and neck Overall: cervical spine benign 12/23/2015 None Full Exam - General 1994 Musculoskeletal head and neck Deformities: no deformities 12/23/2015 None Full Exam - General 1994 Integument inspection of skin Overall: few scattered moles, no gross abnormalities 12/23/2015 None Full Exam - General 1994 Neurologic mental status Overall: alert 12/23/2015 None Full Exam - General 1994 Neurologic mental status Overall: oriented 12/23/2015 None Full Exam - General 1994 Neurologic cranial nerves Overall: crainial nerves 2 - 12 grossly intact 12/23/2015 None Full Exam - General 1994 Psychiatric orientation/consciousness Overall: oriented to person, place and time 12/23/2015 None Full Exam - General 1994 Psychiatric mood and affect Overall: normal mood and affect 12/23/2015 None Full Exam - General 1994 Constitutional general appearance Development: well developed 12/11/2015 None Full Exam - General 1994 Constitutional general appearance Development: appears stated age 0712/11/2015 None Full Exam - General 1994 Constitutional general appearance Hygiene/Attention to Grooming: good hygiene 12/11/2015 None Full Exam - General 1994 Eyes conjunctiva /eyelids Overall: conjunctiva clear 12/11/2015 None Full Exam - General 1994 Eyes conjunctiva /eyelids Overall: cornea clear 12/11/2015 None Full Exam - General 1994 Eyes conjunctiva /eyelids Overall: eyelids normal 12/11/2015 None Full Exam - General 1994 Eyes pupils and irises Overall: pupils equal, round, reactive to light and accomodation 12/11/2015 None Full Exam - General 1994 Ears/Nose/Throat otoscopic exam Overall: external auditory canals clear 12/11/2015 None Full Exam - General 1994 Ears/Nose/Throat otoscopic exam Overall: tympanic membranes clear 12/11/2015 None Full Exam - General 1994 Ears/Nose/Throat lips/teeth/gingiva Overall: benign lips 12/11/2015 None Full Exam - General 1994 Ears/Nose/Throat lips/teeth/gingiva Overall: normal dentition 12/11/2015 None Full Exam - General 1994 Ears/Nose/Throat oral cavity/pharynx/larynx Overall: oral mucosa clear 12/11/2015 None Full Exam - General 1994 Ears/Nose/Throat oral cavity/pharynx/larynx Overall: oropharyngeal mucosa clear 12/11/2015 None Full Exam - General 1994 Ears/Nose/Throat oral cavity/pharynx/larynx Overall: hypopharynx benign 12/11/2015 None Full Exam - General 1994 Ears/Nose/Throat oral cavity/pharynx/larynx Overall: no masses 12/11/2015 None Full Exam - General 1994 Respiratory auscultation Overall: breath sounds clear bilaterally 12/11/2015 None Full Exam - General 1994 Respiratory respiratory effort/rhythm Overall: no retractions 12/11/2015 None Full Exam - General 1994 Respiratory respiratory effort/rhythm Overall: normal rate 12/11/2015 None Full Exam - General 1994 Cardiovascular extremities Overall: no clubbing 12/11/2015 None Full Exam - General 1994 Cardiovascular auscultation of heart Overall: regular rate 12/11/2015 None Full Exam - General 1994 Cardiovascular auscultation of heart Overall: normal heart sounds 12/11/2015 None Full Exam - General 1994 Abdomen abdominal exam Overall: no tenderness 12/11/2015 None Full Exam - General 1994 Abdomen abdominal exam Overall: normal bowel sounds 12/11/2015 None Full Exam - General 1994 Lymphatic neck nodes Overall: anterior cervical chain benign 12/11/2015 None Full Exam - General 1994 Lymphatic neck nodes Overall: posterior cervical chain benign 12/11/2015 None Full Exam - General 1994 Musculoskeletal spine, ribs and pelvis Overall: sacroiliac joint benign 12/11/2015 None Full Exam - General 1994 Musculoskeletal spine, ribs and pelvis Posture: kyphosis 12/11/2015 None Full Exam - General 1994 Musculoskeletal head and neck Overall: cervical spine benign 12/11/2015 None Full Exam - General 1994 Musculoskeletal head and neck Deformities: no deformities 12/11/2015 None Full Exam - General 1994 Integument inspection of skin Overall: few scattered moles, no gross abnormalities 12/11/2015 None Full Exam - General 1994 Neurologic mental status Overall: alert 12/11/2015 None Full Exam - General 1994 Neurologic mental status Overall: oriented 12/11/2015 None Full Exam - General 1994 Neurologic cranial nerves Overall: crainial nerves 2 - 12 grossly intact 12/11/2015 None Full Exam - General 1994 Psychiatric orientation/consciousness Overall: oriented to person, place and time 12/11/2015 None Full Exam - General 1994 Psychiatric mood and affect Overall: normal mood and affect 12/11/2015 None Full Exam - General 1994 Constitutional general appearance Development: well developed 10/16/2015 None Full Exam - General 1994 Constitutional general appearance Development: appears stated age 0510/16/2015 None Full Exam - General 1994 Constitutional general appearance Hygiene/Attention to Grooming: good hygiene 10/16/2015 None Full Exam - General 1994 Eyes conjunctiva /eyelids Overall: conjunctiva clear 10/16/2015 None Full Exam - General 1994 Eyes conjunctiva /eyelids Overall: cornea clear 10/16/2015 None Full Exam - General 1994 Eyes conjunctiva /eyelids Overall: eyelids normal 10/16/2015 None Full Exam - General 1994 Eyes pupils and irises Overall: pupils equal, round, reactive to light and accomodation 10/16/2015 None Full Exam - General 1994 Ears/Nose/Throat otoscopic exam Overall: external auditory canals clear 10/16/2015 None Full Exam - General 1994 Ears/Nose/Throat otoscopic exam Overall: tympanic membranes clear 10/16/2015 None Full Exam - General 1994 Ears/Nose/Throat lips/teeth/gingiva Overall: benign lips 10/16/2015 None Full Exam - General 1994 Ears/Nose/Throat lips/teeth/gingiva Overall: normal dentition 10/16/2015 None Full Exam - General 1994 Ears/Nose/Throat oral cavity/pharynx/larynx Overall: oral mucosa clear 10/16/2015 None Full Exam - General 1994 Ears/Nose/Throat oral cavity/pharynx/larynx Overall: oropharyngeal mucosa clear 10/16/2015 None Full Exam - General 1994 Ears/Nose/Throat oral cavity/pharynx/larynx Overall: hypopharynx benign 10/16/2015 None Full Exam - General 1994 Ears/Nose/Throat oral cavity/pharynx/larynx Overall: no masses 10/16/2015 None Full Exam - General 1994 Respiratory auscultation Overall: breath sounds clear bilaterally 10/16/2015 None Full Exam - General 1994 Respiratory respiratory effort/rhythm Overall: no retractions 10/16/2015 None Full Exam - General 1994 Respiratory respiratory effort/rhythm Overall: normal rate 10/16/2015 None Full Exam - General 1994 Cardiovascular extremities Overall: no clubbing 10/16/2015 None Full Exam - General 1994 Cardiovascular auscultation of heart Overall: regular rate 10/16/2015 None Full Exam - General 1994 Cardiovascular auscultation of heart Overall: normal heart sounds 10/16/2015 None Full Exam - General 1994 Abdomen abdominal exam Overall: no tenderness 10/16/2015 None Full Exam - General 1994 Abdomen abdominal exam Overall: normal bowel sounds 10/16/2015 None Full Exam - General 1994 Lymphatic neck nodes Overall: anterior cervical chain benign 10/16/2015 None Full Exam - General 1994 Lymphatic neck nodes Overall: posterior cervical chain benign 10/16/2015 None Full Exam - General 1994 Musculoskeletal spine, ribs and pelvis Overall: sacroiliac joint benign 10/16/2015 None Full Exam - General 1994 Musculoskeletal spine, ribs and pelvis Posture: kyphosis 10/16/2015 None Full Exam - General 1994 Musculoskeletal head and neck Overall: cervical spine benign 10/16/2015 None Full Exam - General 1994 Musculoskeletal head and neck Deformities: no deformities 10/16/2015 None Full Exam - General 1994 Integument inspection of skin Overall: few scattered moles, no gross abnormalities 10/16/2015 None Full Exam - General 1994 Neurologic mental status Overall: alert 10/16/2015 None Full Exam - General 1994 Neurologic mental status Overall: oriented 10/16/2015 None Full Exam - General 1994 Neurologic cranial nerves Overall: crainial nerves 2 - 12 grossly intact 10/16/2015 None Full Exam - General 1994 Psychiatric orientation/consciousness Overall: oriented to person, place and time 10/16/2015 None Full Exam - General 1994 Psychiatric mood and affect Overall: normal mood and affect 10/16/2015 None Full Exam - General 1994 Constitutional general appearance Overall: well nourished 08/19/2015 None Full Exam - General 1994 Constitutional general appearance Overall: well developed 08/19/2015 None Full Exam - General 1994 Constitutional general appearance Overall: in no acute distress 08/19/2015 None Full Exam - General 1994 Eyes pupils and irises Overall: pupils equal, round, reactive to light and accomodation 08/19/2015 None Full Exam - General 1994 Ears/Nose/Throat otoscopic exam Overall: tympanic membranes clear 08/19/2015 None Full Exam - General 1994 Ears/Nose/Throat otoscopic exam Overall: external auditory canals clear 08/19/2015 None Full Exam - General 1994 Ears/Nose/Throat oral cavity/pharynx/larynx Overall: oropharyngeal mucosa clear 08/19/2015 None Full Exam - General 1994 Ears/Nose/Throat oral cavity/pharynx/larynx Overall: no masses 08/19/2015 None Full Exam - General 1994 Ears/Nose/Throat oral cavity/pharynx/larynx Overall: oral mucosa clear 08/19/2015 None Full Exam - General 1994 Neck thyroid Overall: nontender 2015 None Full Exam - General 1994 Neck thyroid Overall: normal size None Full Exam - General 1994 Neck thyroid Overall: no mass lesions 08/19/2015 None Full Exam - General 1994 Neck thyroid Overall: normal consistency 08/19/2015 None Full Exam - General 1994 Respiratory respiratory effort/rhythm Overall: normal rate 08/19/2015 None Full Exam - General 1994 Respiratory respiratory effort/rhythm Overall: no retractions 08/19/2015 None Full Exam - General 1994 Respiratory palpation of chest Overall: normal excursion, no pain 08/19/2015 None Full Exam - General 1994 Respiratory auscultation Upper lung field: Breath sounds clear 08/19/2015 None Full Exam - General 1994 Respiratory auscultation Lower lung field: crackles 08/19/2015 None Full Exam - General 1994 Cardiovascular auscultation of heart Overall: regular rate 08/19/2015 None Full Exam - General 1994 Cardiovascular auscultation of heart Overall: normal heart sounds 08/19/2015 None Full Exam - General 1994 Abdomen abdominal exam Overall: no tenderness 08/19/2015 None Full Exam - General 1994 Abdomen abdominal exam Overall: normal bowel sounds 08/19/2015 None Full Exam - General 1994 Lymphatic neck nodes Overall: anterior cervical chain benign 08/19/2015 None Full Exam - General 1994 Lymphatic neck nodes Overall: posterior cervical chain benign 08/19/2015 None Full Exam - General 1994 Musculoskeletal digits and nails Overall: digits benign 08/19/2015 None Full Exam - General 1994 Musculoskeletal digits and nails Overall: no clubbing 08/19/2015 None Full Exam - General 1994 Musculoskeletal gait and station Overall: normal station 08/19/2015 None Full Exam - General 1994 Psychiatric orientation/consciousness Overall: oriented to person, place and time 08/19/2015 None Full Exam - General 1994 Constitutional general appearance Development: well developed 07/01/2015 None Full Exam - General 1994 Constitutional general appearance Development: appears stated age 0207/01/2015 None Full Exam - General 1994 Constitutional general appearance Hygiene/Attention to Grooming: good hygiene 07/01/2015 None Full Exam - General 1994 Eyes conjunctiva /eyelids Overall: conjunctiva clear 07/01/2015 None Full Exam - General 1994 Eyes conjunctiva /eyelids Overall: cornea clear 07/01/2015 None Full Exam - General 1994 Eyes conjunctiva /eyelids Overall: eyelids normal 07/01/2015 None Full Exam - General 1994 Eyes pupils and irises Overall: pupils equal, round, reactive to light and accomodation 07/01/2015 None Full Exam - General 1994 Ears/Nose/Throat otoscopic exam Overall: external auditory canals clear 07/01/2015 None Full Exam - General 1994 Ears/Nose/Throat otoscopic exam Overall: tympanic membranes clear 07/01/2015 None Full Exam - General 1994 Ears/Nose/Throat lips/teeth/gingiva Overall: benign lips 07/01/2015 None Full Exam - General 1994 Ears/Nose/Throat lips/teeth/gingiva Overall: normal dentition 07/01/2015 None Full Exam - General 1994 Ears/Nose/Throat oral cavity/pharynx/larynx Overall: oral mucosa clear 07/01/2015 None Full Exam - General 1994 Ears/Nose/Throat oral cavity/pharynx/larynx Overall: oropharyngeal mucosa clear 07/01/2015 None Full Exam - General 1994 Ears/Nose/Throat oral cavity/pharynx/larynx Overall: hypopharynx benign 07/01/2015 None Full Exam - General 1994 Ears/Nose/Throat oral cavity/pharynx/larynx Overall: no masses 07/01/2015 None Full Exam - General 1994 Respiratory auscultation Overall: breath sounds clear bilaterally 07/01/2015 None Full Exam - General 1994 Respiratory respiratory effort/rhythm Overall: no retractions 07/01/2015 None Full Exam - General 1994 Respiratory respiratory effort/rhythm Overall: normal rate 07/01/2015 None Full Exam - General 1994 Cardiovascular extremities Overall: no clubbing 07/01/2015 None Full Exam - General 1994 Cardiovascular auscultation of heart Overall: regular rate 07/01/2015 None Full Exam - General 1994 Cardiovascular auscultation of heart Overall: normal heart sounds 07/01/2015 None Full Exam - General 1994 Abdomen abdominal exam Overall: no tenderness 07/01/2015 None Full Exam - General 1994 Abdomen abdominal exam Overall: normal bowel sounds 07/01/2015 None Full Exam - General 1994 Musculoskeletal spine, ribs and pelvis Posture: kyphosis 07/01/2015 None Full Exam - General 1994 Musculoskeletal head and neck Overall: cervical spine benign 07/01/2015 None Full Exam - General 1994 Musculoskeletal head and neck Deformities: no deformities 07/01/2015 None Full Exam - General 1994 Neurologic mental status Overall: alert 07/01/2015 None Full Exam - General 1994 Neurologic mental status Overall: oriented 07/01/2015 None Full Exam - General 1994 Neurologic cranial nerves Overall: crainial nerves 2 - 12 grossly intact 07/01/2015 None Full Exam - General 1994 Psychiatric orientation/consciousness Overall: oriented to person, place and time 07/01/2015 None Full Exam - General 1994 Psychiatric mood and affect Overall: normal mood and affect 07/01/2015 None Full Exam - General 1994 Cardiovascular extremities Edema present: pitting 07/01/2015 2+ right lower leg Full Exam - General 1994 Constitutional general appearance Development: well developed 05/20/2015 None Full Exam - General 1994 Constitutional general appearance Development: appears stated age 1205/20/2015 None Full Exam - General 1994 Constitutional general appearance Hygiene/Attention to Grooming: good hygiene 05/20/2015 None Full Exam - General 1994 Eyes conjunctiva /eyelids Overall: conjunctiva clear 05/20/2015 None Full Exam - General 1994 Eyes conjunctiva /eyelids Overall: cornea clear 05/20/2015 None Full Exam - General 1994 Eyes conjunctiva /eyelids Overall: eyelids normal 05/20/2015 None Full Exam - General 1994 Eyes pupils and irises Overall: pupils equal, round, reactive to light and accomodation 05/20/2015 None Full Exam - General 1994 Ears/Nose/Throat otoscopic exam Overall: external auditory canals clear 05/20/2015 None Full Exam - General 1994 Ears/Nose/Throat otoscopic exam Overall: tympanic membranes clear 05/20/2015 None Full Exam - General 1994 Ears/Nose/Throat lips/teeth/gingiva Overall: benign lips 05/20/2015 None Full Exam - General 1994 Ears/Nose/Throat lips/teeth/gingiva Overall: normal dentition 05/20/2015 None Full Exam - General 1994 Ears/Nose/Throat oral cavity/pharynx/larynx Overall: oral mucosa clear 05/20/2015 None Full Exam - General 1994 Ears/Nose/Throat oral cavity/pharynx/larynx Overall: oropharyngeal mucosa clear 05/20/2015 None Full Exam - General 1994 Ears/Nose/Throat oral cavity/pharynx/larynx Overall: hypopharynx benign 05/20/2015 None Full Exam - General 1994 Ears/Nose/Throat oral cavity/pharynx/larynx Overall: no masses 05/20/2015 None Full Exam - General 1994 Respiratory auscultation Overall: breath sounds clear bilaterally 05/20/2015 None Full Exam - General 1994 Respiratory respiratory effort/rhythm Overall: no retractions 05/20/2015 None Full Exam - General 1994 Respiratory respiratory effort/rhythm Overall: normal rate 05/20/2015 None Full Exam - General 1994 Cardiovascular extremities Overall: no clubbing 05/20/2015 None Full Exam - General 1994 Cardiovascular auscultation of heart Overall: regular rate 05/20/2015 None Full Exam - General 1994 Cardiovascular auscultation of heart Overall: normal heart sounds 05/20/2015 None Full Exam - General 1994 Abdomen abdominal exam Overall: no tenderness 05/20/2015 None Full Exam - General 1994 Abdomen abdominal exam Overall: normal bowel sounds 05/20/2015 None Full Exam - General 1994 Lymphatic neck nodes Overall: anterior cervical chain benign 05/20/2015 None Full Exam - General 1994 Lymphatic neck nodes Overall: posterior cervical chain benign 05/20/2015 None Full Exam - General 1994 Musculoskeletal spine, ribs and pelvis Overall: sacroiliac joint benign 05/20/2015 None Full Exam - General 1994 Musculoskeletal spine, ribs and pelvis Posture: kyphosis 05/20/2015 None Full Exam - General 1994 Musculoskeletal head and neck Overall: cervical spine benign 05/20/2015 None Full Exam - General 1994 Musculoskeletal head and neck Deformities: no deformities 05/20/2015 None Full Exam - General 1994 Integument inspection of skin Overall: few scattered moles, no gross abnormalities 05/20/2015 None Full Exam - General 1994 Neurologic mental status Overall: alert 05/20/2015 None Full Exam - General 1994 Neurologic mental status Overall: oriented 05/20/2015 None Full Exam - General 1994 Neurologic cranial nerves Overall: crainial nerves 2 - 12 grossly intact 05/20/2015 None Full Exam - General 1994 Psychiatric orientation/consciousness Overall: oriented to person, place and time 05/20/2015 None Full Exam - General 1994 Psychiatric mood and affect Overall: normal mood and affect 05/20/2015 None Full Exam - General 1994 Constitutional general appearance Development: well developed 04/26/2015 None Full Exam - General 1994 Constitutional general appearance Development: appears stated age 1104/26/2015 None Full Exam - General 1994 Constitutional general appearance Hygiene/Attention to Grooming: good hygiene 04/26/2015 None Full Exam - General 1994 Eyes conjunctiva /eyelids Overall: conjunctiva clear 04/26/2015 None Full Exam - General 1994 Eyes conjunctiva /eyelids Overall: cornea clear 04/26/2015 None Full Exam - General 1994 Eyes conjunctiva /eyelids Overall: eyelids normal 04/26/2015 None Full Exam - General 1994 Eyes pupils and irises Overall: pupils equal, round, reactive to light and accomodation 04/26/2015 None Full Exam - General 1994 Ears/Nose/Throat otoscopic exam Overall: external auditory canals clear 04/26/2015 None Full Exam - General 1994 Ears/Nose/Throat otoscopic exam Overall: tympanic membranes clear 04/26/2015 None Full Exam - General 1994 Ears/Nose/Throat lips/teeth/gingiva Overall: benign lips 04/26/2015 None Full Exam - General 1994 Ears/Nose/Throat lips/teeth/gingiva Overall: normal dentition 04/26/2015 None Full Exam - General 1994 Ears/Nose/Throat oral cavity/pharynx/larynx Overall: oral mucosa clear 04/26/2015 None Full Exam - General 1994 Ears/Nose/Throat oral cavity/pharynx/larynx Overall: oropharyngeal mucosa clear 04/26/2015 None Full Exam - General 1994 Ears/Nose/Throat oral cavity/pharynx/larynx Overall: hypopharynx benign 04/26/2015 None Full Exam - General 1994 Ears/Nose/Throat oral cavity/pharynx/larynx Overall: no masses 04/26/2015 None Full Exam - General 1994 Respiratory auscultation Overall: breath sounds clear bilaterally 04/26/2015 None Full Exam - General 1994 Respiratory respiratory effort/rhythm Overall: no retractions 04/26/2015 None Full Exam - General 1994 Respiratory respiratory effort/rhythm Overall: normal rate 04/26/2015 None Full Exam - General 1994 Cardiovascular extremities Overall: no clubbing 04/26/2015 None Full Exam - General 1994 Cardiovascular auscultation of heart Overall: regular rate 04/26/2015 None Full Exam - General 1994 Cardiovascular auscultation of heart Overall: normal heart sounds 04/26/2015 None Full Exam - General 1994 Abdomen abdominal exam Overall: no tenderness 04/26/2015 None Full Exam - General 1994 Abdomen abdominal exam Overall: normal bowel sounds 04/26/2015 None Full Exam - General 1994 Lymphatic neck nodes Overall: anterior cervical chain benign 04/26/2015 None Full Exam - General 1994 Lymphatic neck nodes Overall: posterior cervical chain benign 04/26/2015 None Full Exam - General 1994 Musculoskeletal spine, ribs and pelvis Overall: sacroiliac joint benign 04/26/2015 None Full Exam - General 1994 Musculoskeletal spine, ribs and pelvis Posture: kyphosis 04/26/2015 None Full Exam - General 1994 Musculoskeletal head and neck Overall: cervical spine benign 04/26/2015 None Full Exam - General 1994 Integument inspection of skin Overall: few scattered moles, no gross abnormalities 04/26/2015 None Full Exam - General 1994 Neurologic cranial nerves Overall: crainial nerves 2 - 12 grossly intact 04/26/2015 None Full Exam - General 1994 Psychiatric orientation/consciousness Overall: oriented to person, place and time 04/26/2015 None Full Exam - General 1994 Psychiatric mood and affect Overall: normal mood and affect 04/26/2015 None Full Exam - General 1994 Musculoskeletal head and neck Head: normocephalic 04/26/2015 Pt states that he fell on his back and hit his head, states that he is having headaches, but no other problems, States that the back of his head is slightly tender to palpation, no abnormality felt, no edema, erythema, or ecchymosis noted. Full Exam - General 1994 Musculoskeletal head and neck Deformities: no deformities 04/26/2015 None Full Exam - General 1994 Neurologic mental status Overall: alert 04/26/2015 None Full Exam - General 1994 Neurologic mental status Overall: oriented 04/26/2015 None Full Exam - General 1994 Constitutional general appearance Development: well developed 12/10/2014 None Full Exam - General 1994 Constitutional general appearance Development: appears stated age 0712/10/2014 None Full Exam - General 1994 Constitutional general appearance Hygiene/Attention to Grooming: good hygiene 12/10/2014 None Full Exam - General 1994 Eyes conjunctiva /eyelids Overall: conjunctiva clear 12/10/2014 None Full Exam - General 1994 Eyes conjunctiva /eyelids Overall: cornea clear 12/10/2014 None Full Exam - General 1994 Eyes conjunctiva /eyelids Overall: eyelids normal 12/10/2014 None Full Exam - General 1994 Eyes pupils and irises Overall: pupils equal, round, reactive to light and accomodation 12/10/2014 None Full Exam - General 1994 Ears/Nose/Throat otoscopic exam Overall: external auditory canals clear 12/10/2014 None Full Exam - General 1994 Ears/Nose/Throat otoscopic exam Overall: tympanic membranes clear 12/10/2014 None Full Exam - General 1994 Ears/Nose/Throat lips/teeth/gingiva Overall: benign lips 12/10/2014 None Full Exam - General 1994 Ears/Nose/Throat lips/teeth/gingiva Overall: normal dentition 12/10/2014 None Full Exam - General 1994 Ears/Nose/Throat oral cavity/pharynx/larynx Overall: oral mucosa clear 12/10/2014 None Full Exam - General 1994 Ears/Nose/Throat oral cavity/pharynx/larynx Overall: oropharyngeal mucosa clear 12/10/2014 None Full Exam - General 1994 Ears/Nose/Throat oral cavity/pharynx/larynx Overall: hypopharynx benign 12/10/2014 None Full Exam - General 1994 Ears/Nose/Throat oral cavity/pharynx/larynx Overall: no masses 12/10/2014 None Full Exam - General 1994 Respiratory auscultation Overall: breath sounds clear bilaterally 12/10/2014 None Full Exam - General 1994 Respiratory respiratory effort/rhythm Overall: no retractions 12/10/2014 None Full Exam - General 1994 Respiratory respiratory effort/rhythm Overall: normal rate 12/10/2014 None Full Exam - General 1994 Cardiovascular extremities Overall: no clubbing 12/10/2014 None Full Exam - General 1994 Cardiovascular auscultation of heart Overall: regular rate 12/10/2014 None Full Exam - General 1994 Cardiovascular auscultation of heart Overall: normal heart sounds 12/10/2014 None Full Exam - General 1994 Abdomen abdominal exam Overall: no tenderness 12/10/2014 None Full Exam - General 1994 Abdomen abdominal exam Overall: normal bowel sounds 12/10/2014 None Full Exam - General 1994 Lymphatic neck nodes Overall: anterior cervical chain benign 12/10/2014 None Full Exam - General 1994 Lymphatic neck nodes Overall: posterior cervical chain benign 12/10/2014 None Full Exam - General 1994 Musculoskeletal spine, ribs and pelvis Overall: sacroiliac joint benign 12/10/2014 None Full Exam - General 1994 Musculoskeletal head and neck Overall: head atraumatic 12/10/2014 None Full Exam - General 1994 Musculoskeletal head and neck Overall: cervical spine benign 12/10/2014 None Full Exam - General 1994 Integument inspection of skin Overall: few scattered moles, no gross abnormalities 12/10/2014 None Full Exam - General 1994 Neurologic deep tendon reflexes Overall: deep tendon reflexes intact 12/10/2014 None Full Exam - General 1994 Neurologic cranial nerves Overall: crainial nerves 2 - 12 grossly intact 12/10/2014 None Full Exam - General 1994 Psychiatric orientation/consciousness Overall: oriented to person, place and time 12/10/2014 None Full Exam - General 1994 Psychiatric mood and affect Overall: normal mood and affect 12/10/2014 None Full Exam - General 1994 Musculoskeletal spine, ribs and pelvis Posture: kyphosis 12/10/2014 None Procedures Procedure Codes Date ADMIN INFLUENZA VIRUS VAC CPT-4: G0008 02/17/2017 FLU VACC PRSV FREE INC ANTIG CPT-4: 07518 02/17/2017 PPPS, SUBSEQ VISIT CPT -4: G0439 08/25/2016 ADMIN INFLUENZA VIRUS VAC CPT-4: G0008 03/04/2016 FLU VACC 4 RAE 3 YRS PLUS IM SNOMED CT: 41240159 CPT-4: 18877 03/04/2016 TRIAMCINOLONE ACET INJ NOS CPT-4: J3301 08/19/2015 ROCEPHIN, PER 250 MG CPT-4: J0696 08/19/2015 PROMETHAZINE HCL INJECTION CPT-4: J2550 08/19/2015 ADMIN INFLUENZA VIRUS VAC CPT-4: G0008 03/06/2015 FLU VACC 4 RAE 3 YRS PLUS IM Formatting Model/CDA Sections, Assigned to SNOMED CT: 20202272 CPT-4: 22712Hzdloev 03/06/2015 Vital Signs Date Vital 06/23/2017 Blood Pressure 1: 118/72 Code : 8480-6 BMI: 27.7 Code : 12818-3 Heart Rate 1 : 73 bpm Height: 6' SpO2: 99% Weight: 204 lbs 03/24/2017 Blood Pressure 1: 130/60 Code : 8480-6 BMI: 28.8 Code : 21093-9 Heart Rate 1 : 50 bpm Height: 6' SpO2: 99% Weight: 212 lbs 12/24/2016 Blood Pressure 1: 110/52 Code : 8480-6 BMI: 28.8 Code : 65578-5 Heart Rate 1 : 79 bpm Height: 6' SpO2: 97% Weight: 212 lbs 11/10/2016 Blood Pressure 1: 144/70 Code : 8480-6 BMI: 28.8 Code : 87482-7 Heart Rate 1 : 81 bpm Height: 6' SpO2: 94% Weight: 212 lbs 10/06/2016 Blood Pressure 1: 146/68 Code : 8480-6 BMI: 28.5 Code : 96540-5 Heart Rate 1 : 93 bpm Height: 6' SpO2: 96% Weight: 210 lbs 09/08/2016 Blood Pressure 1: 152/60 Code : 8480-6 BMI: 28.5 Code : 19831-6 Heart Rate 1 : 92 bpm Height: 6' SpO2: 96% Weight: 210 lbs 08/25/2016 Blood Pressure 1: 134/72 Code : 8480-6 BMI: 28.5 Code : 26849-4 Heart Rate 1 : 82 bpm Height: 6' SpO2: 96% Weight: 210 lbs 08/11/2016 Blood Pressure 1: 124/58 Code : 8480-6 BMI: 28.5 Code : 39653-4 Heart Rate 1 : 91 bpm Height: 6' SpO2: 97% Weight: 210 lbs 07/14/2016 Blood Pressure 1: 136/60 Code : 8480-6 BMI: 28.3 Code : 10231-5 Heart Rate 1 : 92 bpm Height: 6' SpO2: 97% Weight: 209 lbs 05/19/2016 Blood Pressure 1: 140/54 Code : 8480-6 BMI: 29.6 Code : 68712-6 Heart Rate 1 : 90 bpm Height: 6' SpO2: 96% Weight: 218 lbs 03/23/2016 Blood Pressure 1: 136/68 Code : 8480-6 BMI: 28.8 Code : 19455-0 Heart Rate 1 : 68 bpm Height: 6' Weight: 212 lbs 03/05/2016 Blood Pressure 1: 128/78 Code : 8480-6 BMI: 28.8 Code : 77489-8 Heart Rate 1 : 90 bpm Height: 6' SpO2: 98% Weight: 212 lbs 02/27/2016 Blood Pressure 1: 128/76 Code : 8480-6 BMI: 28.8 Code : 45648-9 Heart Rate 1 : 74 bpm Height: 6' SpO2: 96% Weight: 212 lbs 01/28/2016 Blood Pressure 1: 120/68 Code : 8480-6 Heart Rate 1: 78 bpm Height: 6' SpO2: 96% 12/23/2015 Blood Pressure 1: 136/76 Code : 8480-6 BMI: 28.6 Code : 98124-8 Heart Rate 1 : 86 bpm Height: 6' SpO2: 94% Weight: 211 lbs 12/11/2015 Blood Pressure 1: 142/70 Code : 8480-6 BMI: 28.8 Code : 11293-6 Heart Rate 1 : 79 bpm Height: 6' SpO2: 95% Weight: 212 lbs 10/16/2015 Blood Pressure 1: 140/70 Code : 8480-6 BMI: 28.1 Code : 63525-3 Heart Rate 1 : 86 bpm Height: 6' SpO2: 98% Weight: 207 lbs 8 oz 08/19/2015 Blood Pressure 1: 180/60 Code : 8480-6 BMI: 28.5 Code : 26342-0 Heart Rate 1 : 102 bpm Height: 6' SpO2: 95% Temperature: 36.7 (C) / 98.1 (F) Weight: 210 lbs 07/01/2015 Blood Pressure 1: 124/68 Code : 8480-6 BMI: 28.3 Code : 19326-7 Heart Rate 1 : 69 bpm Height: 6' SpO2: 97% Weight: 209 lbs 05/20/2015 Blood Pressure 1: 122/72 Code : 8480-6 BMI: 28.2 Code : 29290-8 Heart Rate 1 : 83 bpm Height: 6' SpO2: 99% Weight: 208 lbs 04/26/2015 Blood Pressure 1: 152/72 Code : 8480-6 BMI: 27.9 Code : 65689-6 Heart Rate 1 : 93 bpm Height: 6' SpO2: 98% Weight: 206 lbs 12/10/2014 Blood Pressure 1: 126/52 Code : 8480-6 BMI: 27.9 Code : 09774-3 Heart Rate 1 : 85 bpm Height: 6' SpO2: 97% Weight: 206 lbs Functional Status No Functional Status data History of Present Illness Symptom Name Status Result Effective Date Notes diabetes mellitus Onset of Symptom onset as an adult 06/23/2017 None diabetes mellitus Quality insulin dependent 06/23/2017 None diabetes mellitus Severity moderate 06/23/2017 None diabetes mellitus Significant Medications insulin 06/23/2017 None diabetes mellitus Alleviating Factors medication 06/23/2017 None diabetes mellitus Exacerbating Factors diet 06/23/2017 None diabetes mellitus Nutrition regular diet 06/23/2017 None diabetes mellitus Pertinent Findings nausea 06/23/2017 last weekend diabetes mellitus Pertinent Findings Denies numbness 06/23/2017 None diabetes mellitus Pertinent Findings Denies tingling 06/23/2017 None vertigo Quality chronic 06/23/2017 None vertigo Quality intermittent 06/23/2017 None vertigo Onset and Resolution ongoing 06/23/2017 None vertigo Onset of Symptom years ago 06/23/2017 off and on vertigo Triggers no known associated factors 06/23/2017 None vertigo Exacerbating Factors position change 06/23/2017 None hypertension Quality primary hypertension 06/23/2017 None hypertension Onset and Resolution ongoing 06/23/2017 None hypertension Onset of Symptom during adulthood 06/23/2017 None hypertension Alleviating Factors medication 06/23/2017 None hypertension Blood Pressure Values not checking blood pressure at home 06/23/2017 None hypertension Pertinent Findings dizziness 06/23/2017 None hypertension Pertinent Findings Denies dyspnea 06/23/2017 None hypertension Pertinent Findings Denies edema 06/23/2017 None diabetes mellitus Test results Pt checking blood glucose at home, see scanned readings 2017 None diabetes mellitus Glucose monitoring fasting 06/23/2017 None diabetes mellitus Pertinent Findings vomiting 06/23/2017 last weekend hypertension Quality stable 06/23/2017 None diabetes mellitus Quality insulin dependent 03/24/2017 None diabetes mellitus Severity moderate 03/24/2017 None diabetes mellitus Significant Medications insulin 03/24/2017 None diabetes mellitus Alleviating Factors medication 03/24/2017 None diabetes mellitus Nutrition regular diet 03/24/2017 None diabetes mellitus Pertinent Findings dizziness 03/24/2017 None diabetes mellitus Pertinent Findings Denies dyspnea 03/24/2017 None diabetes mellitus Pertinent Findings Denies numbness 03/24/2017 None diabetes mellitus Pertinent Findings Denies tingling 03/24/2017 None diabetes mellitus Onset of Symptom onset as an adult 03/24/2017 None diabetes mellitus Test results Pt checking blood glucose readings, did not bring results to clinic 03/24/2017 None diabetes mellitus Glucose monitoring daily 03/24/2017 ---162 this morning diabetes mellitus Glucose monitoring fasting 03/24/2017 None diabetes mellitus Exacerbating Factors diet 03/24/2017 None diabetes mellitus Pertinent Findings Denies nausea 03/24/2017 None vertigo Quality intermittent 03/24/2017 None vertigo Onset and Resolution ongoing 03/24/2017 None vertigo Onset of Symptom years ago 03/24/2017 off and on vertigo Quality chronic 03/24/2017 None vertigo Triggers no known associated factors 03/24/2017 None vertigo Exacerbating Factors position change 03/24/2017 None diabetes mellitus Quality non-insulin dependent 12/24/2016 None diabetes mellitus Test results fasting glucose >140 12/24/2016 None diabetes mellitus Blood glucose levels greater than 120 12/24/2016 None diabetes mellitus Glucose monitoring fasting 12/24/2016 None diabetes mellitus Significant Medications insulin 12/24/2016 None diabetes mellitus Pertinent Findings Denies dyspnea 12/24/2016 None diabetes mellitus Pertinent Findings Denies nausea 12/24/2016 None diabetes mellitus Quality insulin dependent 11/10/2016 None diabetes mellitus Severity moderate 11/10/2016 None diabetes mellitus Significant Medications insulin 11/10/2016 None diabetes mellitus Alleviating Factors medication 11/10/2016 None diabetes mellitus Nutrition regular diet 11/10/2016 None diabetes mellitus Pertinent Findings dizziness 11/10/2016 None diabetes mellitus Pertinent Findings Denies dyspnea 11/10/2016 None diabetes mellitus Pertinent Findings Denies numbness 11/10/2016 None diabetes mellitus Pertinent Findings Denies tingling 11/10/2016 None diabetes mellitus Onset of Symptom onset as an adult 11/10/2016 None diabetes mellitus Test results HgbA1c level 7.1 11/10/2016 None diabetes mellitus Quality insulin dependent 10/06/2016 None diabetes mellitus Severity moderate 10/06/2016 None diabetes mellitus Significant Medications insulin 10/06/2016 None diabetes mellitus Alleviating Factors medication 10/06/2016 None diabetes mellitus Pertinent Findings Denies dizziness 10/06/2016 None diabetes mellitus Pertinent Findings Denies dyspnea 10/06/2016 None diabetes mellitus Pertinent Findings Denies numbness 10/06/2016 None diabetes mellitus Pertinent Findings Denies tingling 10/06/2016 None diabetes mellitus Onset of Symptom onset as an adult 10/06/2016 None diabetes mellitus Test results Pt checking blood glucose at home, see scanned readings 2016 None diabetes mellitus Blood glucose levels greater than 120 10/06/2016 None diabetes mellitus Glucose monitoring twice daily 10/06/2016 None diabetes mellitus Nutrition regular diet 10/06/2016 None diabetes mellitus Exercise no exercise 10/06/2016 None diabetes mellitus Quality insulin dependent 09/08/2016 None diabetes mellitus Severity moderate 09/08/2016 None diabetes mellitus Significant Medications insulin 09/08/2016 None diabetes mellitus Alleviating Factors medication 09/08/2016 None diabetes mellitus Pertinent Findings Denies dizziness 09/08/2016 None diabetes mellitus Pertinent Findings Denies dyspnea 09/08/2016 None diabetes mellitus Pertinent Findings Denies numbness 09/08/2016 None diabetes mellitus Pertinent Findings Denies tingling 09/08/2016 None diabetes mellitus Onset of Symptom onset as an adult 09/08/2016 None diabetes mellitus Test results Pt checking blood glucose readings, did not bring results to clinic 09/08/2016 250 fasting in AM, 200 at HS diabetes mellitus Glucose monitoring twice daily 09/08/2016 None gait abnormality Quality intermittent 09/08/2016 None Annual Medicare Wellness Exam Alcohol Use drinks _ days per week 08/25/2016 None Annual Medicare Wellness Exam Aspirin Use yes 08/25/2016 1/2 81 asa Annual Medicare Wellness Exam Blood Glucose (self reported) high (126 or higher) 08/25/2016 None Annual Medicare Wellness Exam Blood Pressure (self reported ) don't know 08/25/2016 None Annual Medicare Wellness Exam Cholesterol (self reported) don't know 08/25/2016 None Annual Medicare Wellness Exam Depression (last 6 months) almost never 08/25/2016 None Annual Medicare Wellness Exam Depression or Hopelessness almost never 08/25/2016 None Annual Medicare Wellness Exam Describe Your Health good 08/25/2016 None Annual Medicare Wellness Exam Exercise Habits does not exercise 08/25/2016 None Annual Medicare Wellness Exam Handling Stress usually issac effectively 08/25/2016 None Annual Medicare Wellness Exam Hemaglobin A-1C (self reported ) don't know 08/25/2016 None Annual Medicare Wellness Exam Hours of Sleep 10 08/25/2016 None Annual Medicare Wellness Exam Interaction with Friends yes 08/25/2016 None Annual Medicare Wellness Exam Interests & Pleasure almost all of the time 08/25/2016 None Annual Medicare Wellness Exam Life Satisfaction satisfied 08/25/2016 None Annual Medicare Wellness Exam Motor Vehicle Safety always fastens seat belt: y 08/25/2016 None Annual Medicare Wellness Exam Nutrition servings of vegetables / fruit per day: y 08/25/2016 None Annual Medicare Wellness Exam Smoking and Tobacco Use non smoker 08/25/2016 None Annual Medicare Wellness Exam Social & Emotional Support always 08/25/2016 None Annual Medicare Wellness Exam Stress almost never 08/25/2016 None Annual Medicare Wellness Exam Sun Exposure protects skin when outdoors: n 08/25/2016 None diabetes mellitus Quality insulin dependent 08/11/2016 None diabetes mellitus Severity moderate 08/11/2016 None diabetes mellitus Significant Medications insulin 08/11/2016 None diabetes mellitus Alleviating Factors medication 08/11/2016 None diabetes mellitus Onset of Symptom onset as an adult 08/11/2016 None Hospital Follow Up _ Other: diabetes 08/11/2016 None Hospital Follow Up Quality chronic illness 08/11/2016 None Hospital Follow Up Quality acute 08/11/2016 None Hospital Follow Up Quality improving 08/11/2016 None Hospital Follow Up Exacerbating Factors medication 08/11/2016 None Hospital Follow Up Pertinent Findings medication use 08/11/2016 None Hospital Follow Up Pertinent Findings Other: checking blood glucose 08/11/2016 None diabetes mellitus Test results Pt checking blood glucose at home, see scanned readings 2016 None diabetes mellitus Test results fasting glucose >140 08/11/2016 None diabetes mellitus Pertinent Findings Denies dyspnea 08/11/2016 None diabetes mellitus Pertinent Findings Denies dizziness 08/11/2016 None diabetes mellitus Pertinent Findings Denies tingling 08/11/2016 None diabetes mellitus Pertinent Findings Denies numbness 08/11/2016 None diabetes mellitus Quality insulin dependent 07/14/2016 None diabetes mellitus Severity moderate 07/14/2016 None diabetes mellitus Significant Medications insulin 07/14/2016 None diabetes mellitus Alleviating Factors medication 07/14/2016 None diabetes mellitus Onset of Symptom onset as an adult 07/14/2016 None Hospital Follow Up _ Other: diabetes 07/14/2016 None Hospital Follow Up Quality chronic illness 07/14/2016 None Hospital Follow Up Quality acute 07/14/2016 None Hospital Follow Up Quality improving 07/14/2016 None Hospital Follow Up Exacerbating Factors medication 07/14/2016 None Hospital Follow Up Pertinent Findings medication use 07/14/2016 None Hospital Follow Up Pertinent Findings Other: checking blood glucose 07/14/2016 None diabetes mellitus Test results Pt checking blood glucose at home, see scanned readings 2016 None diabetes mellitus Blood glucose levels greater than 120 07/14/2016 None diabetes mellitus Glucose monitoring twice daily 07/14/2016 None low back and leg pain Quality acute 05/19/2016 None low back and leg pain Onset and Resolution sudden in onset 05/19/2016 None low back and leg pain Onset of Symptom _ days ago 05/19/2016 None low back and leg pain Limitation on Activities moderately limits activities 05/19/2016 None low back and leg pain Pertinent Findings male 05/19/2016 None diabetes mellitus Quality insulin dependent 05/19/2016 None diabetes mellitus Severity moderate 05/19/2016 None diabetes mellitus Significant Medications insulin 05/19/2016 None diabetes mellitus Alleviating Factors medication 05/19/2016 None diabetes mellitus Onset of Symptom onset as an adult 05/19/2016 None diabetes mellitus Test results HgbA1c level 6.7% 05/19/2016 None low back and leg pain Quality acute 03/23/2016 None low back and leg pain Onset and Resolution sudden in onset 03/23/2016 None low back and leg pain Onset of Symptom _ days ago 03/23/2016 None low back and leg pain Limitation on Activities moderately limits activities 03/23/2016 None low back and leg pain Pertinent Findings male 03/23/2016 None diabetes mellitus Test results HgbA1c level 6.4 03/23/2016 None diabetes mellitus Quality insulin dependent 03/23/2016 None diabetes mellitus Severity moderate 03/23/2016 None diabetes mellitus Glucose monitoring twice daily 03/23/2016 three times daily diabetes mellitus Significant Medications insulin 03/23/2016 None diabetes mellitus Alleviating Factors medication 03/23/2016 None diabetes mellitus Onset of Symptom onset as an adult 03/23/2016 None low back and leg pain Quality acute 03/05/2016 None low back and leg pain Onset and Resolution sudden in onset 03/05/2016 None low back and leg pain Onset of Symptom _ days ago 03/05/2016 None low back and leg pain Limitation on Activities moderately limits activities 03/05/2016 None low back and leg pain Extent of Symptoms weakness of right lower extremity 03/05/2016 None low back and leg pain Mechanism of injury unknown 03/05/2016 None low back and leg pain Sports Participation not significant 03/05/2016 None low back and leg pain Pertinent Findings male 03/05/2016 None diabetes mellitus Quality IDDM 02/27/2016 None diabetes mellitus Severity mild 02/27/2016 None diabetes mellitus Alleviating Factors medication 02/27/2016 None diabetes mellitus Nutrition regular diet 02/27/2016 None diabetes mellitus Pertinent Findings Denies dizziness 02/27/2016 None diabetes mellitus Pertinent Findings Denies dyspnea 02/27/2016 None diabetes mellitus Onset of Symptom onset as an adult 02/27/2016 None diabetes mellitus Test results Pt checking blood glucose readings, did not bring results to clinic 02/27/2016 None diabetes mellitus Quality IDDM 01/28/2016 None diabetes mellitus Test results Pt checking blood glucose at home, see scanned readings 2015 None diabetes mellitus Blood glucose levels less than 60 01/28/2016 None diabetes mellitus Blood glucose levels between 60 and 120 01/28/2016 None diabetes mellitus Pertinent Findings Denies dizziness 01/28/2016 None diabetes mellitus Pertinent Findings Denies dyspnea 01/28/2016 None diabetes mellitus Test results HgbA1c level 6.4% 01/28/2016 None diabetes mellitus Severity mild 01/28/2016 None diabetes mellitus Glucose monitoring twice daily 01/28/2016 None diabetes mellitus Glucose monitoring daily 01/28/2016 None diabetes mellitus Alleviating Factors medication 01/28/2016 None diabetes mellitus Nutrition regular diet 01/28/2016 None diabetes mellitus Onset of Symptom onset as an adult 01/28/2016 None diabetes mellitus Test results Pt checking blood glucose readings, did not bring results to clinic 12/23/2015 None diabetes mellitus Glucose monitoring before meals 12/23/2015 TID diabetes mellitus Nutrition regular diet 12/23/2015 None diabetes mellitus Exercise minimal exercise 12/23/2015 None diabetes mellitus Pertinent Findings Denies dehydration 12/23/2015 None diabetes mellitus Pertinent Findings Denies dizziness 12/23/2015 None diabetes mellitus Pertinent Findings Denies dyspnea 12/23/2015 None diabetes mellitus Severity mild 12/23/2015 None diabetes mellitus Quality insulin dependent 12/23/2015 None fatigue Onset and Resolution sudden in onset 12/11/2015 None fatigue Onset of Symptom 1 months ago 12/11/2015 None edema Quality pitting 12/11/2015 None edema Quality painless 12/11/2015 None edema Onset and Resolution gradual in onset 12/11/2015 None edema Onset of Symptom 6 months ago 12/11/2015 None diabetes mellitus Quality insulin dependent 10/16/2015 None diabetes mellitus Severity mild 10/16/2015 None diabetes mellitus Nutrition ADA diet 10/16/2015 None diabetes mellitus Pertinent Findings Denies dizziness 10/16/2015 None diabetes mellitus Pertinent Findings Denies dyspnea 10/16/2015 None diabetes mellitus Onset of Symptom onset as an adult 10/16/2015 None diabetes mellitus Test results Pt checking blood glucose readings, did not bring results to clinic 10/16/2015 None diabetes mellitus Glucose monitoring fasting 10/16/2015 None diabetes mellitus Glucose monitoring bedtime 10/16/2015 None diabetes mellitus Pertinent Findings Denies nausea 10/16/2015 None diabetes mellitus Alleviating Factors insulin 10/16/2015 None diabetes mellitus Exacerbating Factors diet 10/16/2015 None ~generic Alleviating Factors medication 10/16/2015 -coumadin ~generic Onset and Resolution ongoing 10/16/2015 None edema Onset and Resolution ongoing 08/19/2015 None edema Quality acute None edema Location on the right leg 08/19/2015 from knee down to foot nausea Onset and Resolution sudden in onset 08/19/2015 None nausea Onset of Symptom 1 hours ago 08/19/2015 None nausea Pertinent Findings chills 08/19/2015 None sore throat Quality acute 08/19/2015 None sore throat Onset and Resolution sudden in onset 08/19/2015 None hip pain Location on the right 07/01/2015 None Hospital Follow Up _ blood clots 07/01/2015 None hip pain Onset of Symptom 2 months ago 07/01/2015 None hip pain Quality intermittent 07/01/2015 None hip pain Onset and Resolution ongoing 07/01/2015 None hip pain Quality stable 07/01/2015 None hip pain Pertinent Findings pain with movement 07/01/2015 None Hospital Follow Up Quality acute 07/01/2015 None Hospital Follow Up Location right foot 07/01/2015 None Hospital Follow Up Onset of Symptom 6 days ago 07/01/2015 None Hospital Follow Up Onset and Resolution ongoing 07/01/2015 None Hospital Follow Up Alleviating Factors medication 07/01/2015 [facility] Follow Up Pertinent Findings Denies pain 07/01/2015 None Hospital Follow Up Pertinent Findings Other: swelling/redness 07/01/2015 None diabetes mellitus Onset of Symptom onset as an adult 05/20/2015 None diabetes mellitus Quality insulin dependent 05/20/2015 None diabetes mellitus Nutrition ADA diet 05/20/2015 None diabetes mellitus Test results Pt checking blood glucose at home, see scanned readings 2014 None diabetes mellitus Glucose monitoring daily 05/20/2015 None diabetes mellitus Pertinent Findings Denies dizziness 05/20/2015 None diabetes mellitus Pertinent Findings Denies dyspnea 05/20/2015 None diabetes mellitus Blood glucose levels greater than 120 05/20/2015 None constipation Quality intermittent 05/20/2015 None constipation Onset and Resolution ongoing 05/20/2015 None constipation Pertinent Findings Denies bloating 05/20/2015 None diabetes mellitus Severity mild 05/20/2015 None headache Quality acute 04/26/2015 None headache Quality sharp 04/26/2015 None headache Quality intermittent 04/26/2015 None headache Quality stable 04/26/2015 None headache Onset and Resolution sudden in onset 04/26/2015 None headache Significant Medical Conditions trauma 04/26/2015 None headache Alleviating Factors medication 04/26/2015 None headache Pertinent Findings Denies confusion 04/26/2015 None headache Pertinent Findings Denies dizziness 04/26/2015 None headache Pertinent Findings Denies fever 04/26/2015 None headache Pertinent Findings Denies lethargy 04/26/2015 None headache Pertinent Findings Denies irritability 04/26/2015 None headache Pertinent Findings Denies photophobia 04/26/2015 None headache Pertinent Findings Denies seizure 04/26/2015 None headache Pertinent Findings Denies warning signs 04/26/2015 None headache Pertinent Findings Denies weakness 04/26/2015 None diabetes mellitus Onset of Symptom onset as an adult 12/10/2014 None diabetes mellitus Quality insulin dependent 12/10/2014 None diabetes mellitus Test results Pt checking blood glucose at home, see scanned readings 2014 - he states that his blood glucose continues to rise - diabetes mellitus Blood glucose levels greater than 120 12/10/2014 None diabetes mellitus Glucose monitoring twice daily 12/10/2014 None diabetes mellitus Nutrition ADA diet 12/10/2014 None diabetes mellitus Exercise moderate exercise 12/10/2014 None Advance Directives No Advance Directive data Encounters Encounter Performer Location Codes ([id number]) 80868 EST. PATIENT, LEVEL IV Diagnosis: Type 2 diabetes mellitus without complications[ICD10: E11.9] Diagnosis: Essential (primary) hypertension[ICD10: I10] Diagnosis: Other insomnia[ICD10: G47.09] Perlita Heath MD, [facility] CPT- 4: 60149 06/23/2017 ([id number]) 09125 EST. PATIENT, LEVEL IV Diagnosis: Essential (primary) hypertension[ICD10: I10] Diagnosis: Unsteadiness on feet[ICD10: R26.81] Diagnosis: Dizziness and giddiness[ICD10: R42] Diagnosis: Type 2 diabetes mellitus without complications[ICD10: E11.9] Perlita Heath MD, [facility] CPT-4: 63745 03/24/2017 90755 EST. PATIENT, LEVEL IV Diagnosis: Type 2 diabetes mellitus with hypoglycemia without coma[ICD10: E11.649] Lalita Heath MD, [facility] CPT-4: 82538 2016 ([id number]) 92710 EST. PATIENT, LEVEL III Diagnosis: Type 2 diabetes mellitus with hyperglycemia[ICD10: E11.65] Diagnosis: Essential (primary) hypertension[ICD10: I10] Adeola Heath MD, [facility] CPT-4: 68314 11/10/2016 ([id number]) 88702 EST. PATIENT, LEVEL III Diagnosis: Type 2 diabetes mellitus with hyperglycemia[ICD10: E11.65] Adeola Heath MD, [facility] CPT-4: 94266 10/06/2016 ([id number]) 71691 EST. PATIENT, LEVEL III Diagnosis: Type 2 diabetes mellitus with hyperglycemia[ICD10: E11.65] Diagnosis: Muscle weakness (generalized)[ICD10: M62.81] Diagnosis: Unsteadiness on feet[ICD10: R26.81] Adeola Heath MD, [facility] CPT-4: 67869 09/08/2016 ([id number]) 54791 EST. 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 PATIENT, LEVEL III Diagnosis: Type 2 diabetes mellitus without complications[ICD10: E11.9] Diagnosis: Essential (primary) hypertension[ICD10: I10] Adeola Heath MD, [facility] CPT-4: 35491 05/19/2016 ([id number]) 23579 EST. PATIENT, LEVEL IV Diagnosis: Type 2 diabetes mellitus without complications[ICD10: E11.9] Diagnosis: Essential (primary) hypertension[ICD10: I10] Diagnosis: Mixed hyperlipidemia[ICD10: E78.2] Diagnosis: Low back pain[ICD10: M54.5] Adeola Heath MD, [facility] CPT-4: 78150 03/23/2016 ([id number]) Miscellaneous no charge Diagnosis: Muscle weakness (generalized)[ICD10: M62.81] Diagnosis: Pain in right leg[ICD10: M79.604] Adeola Heath MD, [facility] CPT-4: 05333 03/05/2016 ([id number]) 79149 EST. PATIENT, LEVEL IV Diagnosis: Acute recurrent maxillary sinusitis[ICD10: J01.01] Diagnosis: Pain in right leg[ICD10: M79.604] Diagnosis: Low back pain[ICD10: M54.5] Diagnosis: Muscle weakness (generalized)[ICD10: M62.81] Diagnosis: Type 2 diabetes mellitus with hyperglycemia[ICD10: E11.65] Adeola Heath MD, [facility] CPT-4: 94130 02/27/2016 ([id number]) 97132 EST. PATIENT, LEVEL III Diagnosis: Type 2 diabetes mellitus with hyperglycemia[ICD10: E11.65] Adeola Heath MD, [facility] CPT-4: 09917 01/28/2016 ([id number]) 90649 EST. PATIENT, LEVEL IV Diagnosis: Type 2 diabetes mellitus with hyperglycemia[ICD10: E11.65] Diagnosis: Essential (primary) hypertension[ICD10: I10] Adeola Heath MD [facility] CPT-4: 83593 12/23/2015 ([id number]) 47299 EST. PATIENT, LEVEL III Diagnosis: Type 2 diabetes mellitus without complications[ICD10: E11.9] Perlita Heath MD [facility] CPT-4: 29304 12/11/2015 ([id number]) 85880 EST. PATIENT, LEVEL IV Diagnosis: correction (current) use of anticoagulants[ICD10: Z79.01] Diagnosis: Type 2 diabetes mellitus with hyperglycemia[ICD10: E11.65] Perlita Heath MD [facility] CPT-4: 16620 10/16/2015 ([id number]) 10207 EST. PATIENT, LEVEL IV Diagnosis: Pneumonia, unspecified organism[ICD10: J18.9] Diagnosis: Nausea with vomiting, unspecified[ICD10: R11.2] Diagnosis: Cough[ICD10: R05] Perlita Heath MD [facility] CPT-4: 67660 08/19/2015 ([id number]) 41606 EST. PATIENT, LEVEL IV Diagnosis: Acute embolism and thrombosis of unspecified deep veins of right lower extremity[ICD10: I82.401] Diagnosis: Pain in right hip[ICD10: M25.551] Perlita Heath MD [facility] CPT-4: 86929 07/01/2015 ([id number]) 53004 EST. PATIENT, LEVEL IV Diagnosis: Essential (primary) hypertension[ICD10: I10] Diagnosis: Type 2 diabetes mellitus with hyperglycemia[ICD10: E11.65] Diagnosis: Constipation, unspecified[ICD10: K59.00] Adeola Heath MD [facility] CPT-4: 24615 05/20/2015 22009 EST. PATIENT, LEVEL IV Diagnosis: Post-traumatic headache, unspecified, not intractable[ICD10: G44.309 ] Lalita Heath MD [facility] CPT-4: 29595 04/26/2015 ([id number]) OFFICE VISIT, NEW - LEVEL 4 Diagnosis: ESSENTIAL HYPERTENSION[ICD9: 401.9] Diagnosis: Diabetes mellitus out of control[ICD9: 250.02] Perlita Heath MD, [facility] CPT-4: 27380 12/10/2014 Plan of Care Planned Activity Notes Codes Status Date Patient Education: Patient Medication Summary Completed 06/23/2017 App[facility]ment[phone] [facility] (15 min) Moderate 03/24/2017 Patient Education: Patient Medication Summary Completed 03/24/2017 Care Plan: Referral Order SNOMED-CT : 520418628 Pending 03/24/2017 Appointment: Injection 02/17/2017 Patient Education: Patient Medication Summary Completed 02/17/2017 Patient Education: Patient Medication Summary Completed 02/17/2017 [phone] [phone] (30 min) Complex 02/09/2017 Appointment: [phone] [facility] (30 min) Complex 12/24/2016 Patient Education: Patient Medication Summary Completed 12/24/2016 Appointment: Adeola Suarez [phone] (30 min) Complex 11/10/2016 Patient Education: Patient Medication Summary Completed 11/10/2016 Patient Education: Hypertension Completed 11/10/2016 App[facility]ment: [phone] [phone] (30 min) Complex 10/06/2016 Patient Education: Patient Medication Summary Completed 10/06/2016 Appointment: Adeola Suarez [phone] (30 min) Complex 09/08/2016 Patient Education: Patient Medication Summary Completed 09/08/2016 Appointment: [facility] Sk[phone] [facility] [facility] - Annual Wellness Visit 08/25/2016 Patient Education: Patient Medication Summary Completed 08/25/2016 Appointment: Adeola Suarez WPtel: [phone] (30 min) Complex 08/18/2016 Appointment: Adeola Suarez WPtel: [phone] (30 min) Complex 08/11/2016 Patient Education: Patient Medication Summary Completed 08/11/2016 Appointment: Adeola Suarez WPtel: [phone] (30 min) Complex 07/14/2016 Patient Education: Patient Medication Summary Completed 07/14/2016 Care Plan: Referral Order SNOMED-CT : [id number] Pending 07/14/2016 Appointment: Adeola Suarez WPtel: [address] [place], [place] [phone] (30 min) Complex 05/19/2016 Patient Education: Patient Medication Summary Completed 05/19/2016 Appointment: Adeola Suarez WPtel: [address] [place], [place] [phone] (30 min) Complex 03/23/2016 Patient Education: Patient Medication Summary Completed 03/23/2016 Care Plan: Cbc With Differential Pending 03/23/2016 Care Plan: %Hba1C LOINC : 74578-9 Pending 03/23/2016 Care Plan: Tsh Pending 03/23/2016 Care Plan: Comp Metabolic patient to come fasting this week Pending 03/23/2016 Care Plan: Lipid Pending 03/23/2016 Care Plan: Microalbumin Pending 03/23/2016 Patient Education: Patient Medication Summary Completed 03/05/2016 Appointment: Injection 03/04/2016 Patient Education: Patient Medication Summary Completed 03/04/2016 Appointment: Adeola Suarez [facility]Ptel[phone] [place] (15 min) Moderate 02/27/2016 Patient Education: Patient Medication Summary Completed 02/27/2016 Appointment: Adeola Suarez [facility]Ptel[phone] (30 min) Complex 01/28/2016 Patient Education: Patient Medication Summary Completed 01/28/2016 Appointment: (30 min) Complex 12/23/2015 Patient Education: Patient Medication Summary Completed 12/23/2015 Appointment: Perlita Heath WPtel: [address] [place], [place] [phone] (15 min) Moderate 12/11/2015 Patient Education: Patient Medication Summary Completed 12/11/2015 Patient Education: Patient Medication Summary Completed 10/16/2015 Patient Education: Patient Medication Summary Completed 08/29/2015 Appointment: Perlita Heath WPtel: [address] [place], [place] [phone] (30 min) Complex 08/19/2015 Patient Education: Patient Medication Summary Completed 08/19/2015 Appointment: Perlita Heath WPtel: [address] [place], [place] [phone] (30 min) Complex 07/01/2015 Patient Education: Patient Medication Summary Completed 07/01/2015 Appointment: (30 min) Complex 05/20/2015 Patient Education: Patient Medication Summary Completed 05/20/2015 Patient Education: Hypertension Completed 05/20/2015 Patient Education: .Amazing charts Power Pudding Completed 05/20/2015 Appointment: (15 min) Moderate 04/26/2015 Patient Education: Patient Medication Summary Completed 04/26/2015 Appointment: Nurse Visit 03/06/2015 Patient Education: Patient Medication Summary Completed 03/06/2015 Appointment: (15 min) Moderate 01/10/2015 Appointment: Perlita Heath WPtel: [address] [place], [place] [phone] [place] ([place]) New Patient 12/10/2014 Patient Education: Patient Medication Summary Completed 12/10/2014 Patient Education: Hypertension Completed 12/10/2014 Referral: Frank Mckoy Referral Completed Referral: [facility]: [address] [facility] Referral Appointment Requested Referral: [facility] WPtel: [address] [facility] Scheduled patient for Apr.02 at 1:00 PM. Patient is going to reschedule this appt. Completed Instructions No Instructions
--- OUTSIDE RECORDS SUMMARY | 2017-07-24 02:32 | XMS REPORT | CCD ---
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 Weight Measured 208.4 lbs 06/25/2015 13:26 Initial VS Height 72 in 06/25/2015 13:26 Initial VS BMI (Body Mass Index) 28.26 kg/m^2 06/25/2015 13:26 Initial VS BSA (Body Surface Area) 2.19 m^2 06/25/2015 13:26 Initial VS BP Systolic 140 mmHg 06/25/2015 13:26 Initial VS BP Diastolic 68 mmHg 06/25/2015 13:26 Initial VS Respiratory Rate 16 bpm 06/25/2015 13:26 Initial VS Heart Rate 69 bpm 06/25/2015 13:26 Initial VS O2 % BldC Oximetry 99 % 06/25/2015 13:26 Initial VS Body Temperature 96.3 degrees 06/25/2015 13:26 Initial VS BP Systolic 132 mmHg 06/26/2015 11:20 Most Recent VS BP Diastolic 74 mmHg 06/26/2015 11:20 Most Recent VS Respiratory Rate 20 bpm 06/26/2015 11:20 Most Recent VS Heart Rate 71 bpm 06/26/2015 11:20 Most Recent VS O2 % BldC Oximetry 98 % 06/26/2015 11:20 Most Recent VS Body Temperature 98 degrees 06/26/2015 11:20 Most Recent VS Allergies Allergy Code Allergy Type Reaction Status No Known Drug Allergies 0 No known drug allergies Active Procedures Procedure Code Procedure Type Date BEDSIDE GLUCOSE 92752173 SNOMED CT 06/26/2015 BEDSIDE GLUCOSE 10722358 SNOMED CT 06/26/2015 BEDSIDE GLUCOSE 53050700 SNOMED [address] 06/26/[address] 06/26/2015 BASIC METABOLIC PANEL 540529849 SNOMED CT 06/26/2015 CBC W/ AUTO DIFF (RFLX MAN DIFF IF IND) 0637915 SNOMED CT 06/26/2015 BEDSIDE GLUCOSE 74637628 SNOMED CT 06/25/2015 BEDSIDE GLUCOSE 42537832 SNOMED CT 06/25/2015 HGB A1C (SEND-OUT) 56600470 SNOMED CT 06/25/2015 COMPREHENSIVE METABOLIC PANEL 816811712 SNOMED CT 2015 CBC W/ AUTO DIFF (RFLX MAN DIFF IF IND) 9853857 SNOMED CT 06/25/2015 ^CBC W/AUTO DIFF 0384471 SNOMED CT 06/25/2015 ^CBC W/AUTO DIFF 3268784 SNOMED CT 06/26/2015 PT EVALUATION 342124558 OMED CT 06/26/2015 History of Immunizations Unknown or Not Available. Problems Problem Code Start Date Resolved Date Status DVT of leg 568595650 Active Results BASIC METABOLIC PANEL - Collect Date/Time: 06/26/2015 06:35 Test Name Code Test Result Test Units Test Ref Range GLUCOSE 2345-7 110 MG/DL L=70 H=100 SODIUM 2951-2 140 MEQ/L L=135 H=148 POTASSIUM 2823-3 4.1 MEQ/L L=3.5 H=5.3 CHLORIDE 2075-0 108 MEQ/L L=96 H=110 CO2 2028-9 22 MEQ/L L=22 H=29 BUN 3094-0 20 MG/DL L=8 H=22 CREATININE 2160-0 1.5 MG/DL L=0.6 H=1.6 CALCIUM 50534-1 8.9 MG/DL L=8.2 H=10.6 AGE 84 yrs GFR NonAA 44 GFR AA 53 eGFR 44 mL/min/1.7 eGFR AA* 53 mL/min/1.7 BEDSIDE GLUCOSE - Collect Date/Time: 06/26/2015 11:32 Test Name Code Test Result Test Units Test Ref Range GLUCOSE POCT 187 MG/DL L=70 H=100 BEDSIDE GLUCOSE - Collect Date/Time: 06/26/2015 09:51 Test Name Code Test Result Test Units Test Ref Range GLUCOSE POCT 228 MG/DL L=70 H=100 BEDSIDE GLUCOSE - Collect Date/Time: 06/26/2015 05:20 Test Name Code Test Result Test Units Test Ref Range GLUCOSE POCT 73 MG/DL L=70 H=100 BEDSIDE GLUCOSE - Collect Date/Time: 06/25/2015 21:25 Test Name Code Test Result Test Units Test Ref Range GLUCOSE POCT 198 MG/DL L=70 H=100 BEDSIDE GLUCOSE - Collect Date/Time: 06/25/2015 16:50 Test Name Code Test Result Test Units Test Ref Range GLUCOSE POCT 175 MG/DL L=70 H=100 COMPREHENSIVE METABOLIC PANEL - Collect Date/Time: 06/25/2015 11:00 Test Name Code Test Result Test Units Test Ref Range GLUCOSE 2345-7 115 MG/DL L=70 H=100 SODIUM 2951-2 140 MEQ/L L=135 H=148 POTASSIUM 2823-3 4.4 MEQ/L L=3.5 H=5.3 CHLORIDE 2075-0 107 MEQ/L L=96 H=110 CO2 2028-9 25 MEQ/L L=22 H=29 BUN 3094-0 20 MG/DL L=8 H=22 CREATININE 2160-0 1.6 MG/DL L=0.6 H=1.6 SGOT/AST 1920-8 20 IU/L L=10 H=40 SGPT/ALT 1742-6 20 IU/L L=8 H=54 ALK PHOS 6768-6 110 IU/L L=35 H=115 TOTAL PROTEIN 2885-2 7.0 G/DL L=5.5 H=8.5 ALBUMIN 1751-7 4.1 G/DL L=3.1 H=5.4 TOTAL BILI 1975-2 0.8 MG/DL L=0.0 H=1.5 CALCIUM 53082-9 9.5 MG/DL L=8.2 H=10.6 AGE 84 yrs GFR NonAA 41 GFR AA 50 eGFR 41 mL/min/1.7 eGFR AA* 50 mL/min/1.7 CBC W/ AUTO DIFF (RFLX MAN DIFF IF IND) - Collect Date/Time: 06/26/2015 06:35 Test Name Code Test Result Test Units Test Ref Range WBC 98984-8 5.5 TH/CMM L=4.5 H=10.8 RBC 789-8 4.67 ML/CMM L=4.70 H=6.10 HGB 718-7 14.1 G/DL L=14.0 H=18.0 HCT 4544-3 42.7 % L=42.0 H=52.0 MCV 91 FL L=81 H=99 MCH 30.2 PG L=27.0 H=33.0 MCHC 33.0 G/DL L=31.0 H=36.0 RDW SD 42 FL L=36 H=50 RDW CV 12.8 % L=0.0 H=14.8 MPV 10.6 FL L=9.3 H=12.5 PLT 777-3 130 TH/CMM L=130 H=440 NRBC# 0.00 TH/CMM L=0.00 H=0.00 NRBC% 0.0 /100WBC L=0.0 H=2.0 %NEUT 58.1 % %LYMP 31.0 % %MONO 7.8 % %EOS 2.7 % %BASO 0.4 % #NEUT 3.18 TH/CMM L=2.10 H=8.20 #LYMP 1.70 TH/CMM L=0.90 H=5.20 #MONO 0.43 TH/CMM L=0.16 H=1.00 #EOS 0.15 TH/CMM L=0.00 H=0.80 #BASO 0.02 TH/CMM L=0.00 H=0.20 MANUAL DIFF NOT IND N/A CBC W/ AUTO DIFF (RFLX MAN DIFF IF IND) - Collect Date/Time: 06/25/2015 11:00 Test Name Code Test Result Test Units Test Ref Range WBC 43366-3 5.2 TH/CMM L=4.5 H=10.8 RBC 789-8 4.88 ML/CMM L=4.70 H=6.10 HGB 718-7 14.9 G/DL L=14.0 H=18.0 HCT 4544-3 44.8 % L=42.0 H=52.0 MCV 92 FL L=81 H=99 MCH 30.5 PG L=27.0 H=33.0 MCHC 33.3 G/DL L=31.0 H=36.0 RDW SD 43 FL L=36 H=50 RDW CV 12.7 % L=0.0 H=14.8 MPV 10.6 FL L=9.3 H=12.5 PLT 777-3 146 TH/CMM L=130 H=440 NRBC# 0.00 TH/CMM L=0.00 H=0.00 NRBC% 0.0 /100WBC L=0.0 H=2.0 %NEUT 51.8 % %LYMP 32.7 % %MONO 11.0 % %EOS 3.7 % %BASO 0.8 % #NEUT 2.68 TH/CMM L=2.10 H=8.20 #LYMP 1.69 TH/CMM L=0.90 H=5.20 #MONO 0.57 TH/CMM L=0.16 H=1.00 #EOS 0.19 TH/CMM L=0.00 H=0.80 #BASO 0.04 TH/CMM L=0.00 H=0.20 MANUAL DIFF NOT IND N/A PT/PTT - Collect Date/Time: 06/26/2015 06:35 Test Name Code Test Result Test Units Test Ref Range PROTIME 90356-6 11.2 SEC L=9.9 H=11.9 INR 1.1 PTT 3173-2 33.4 SEC L=22.2 H=37.2 PT/PTT - Collect Date/Time: 06/25/2015 11:00 Test Name Code Test Result Test Units Test Ref Range PROTIME 90301-1 10.6 SEC L=9.9 H=11.9 INR 1.1 PTT 3173-2 25.9 SEC L=22.2 H=37.2 HGB A1C (SEND-OUT) - Collect Date/Time: 06/25/2015 11:00 Test Name Code Test Result Test Units Test Ref Range Hemoglobin A1c 4548-4 7.0 % 4.8-5.6 Estim. Avg Glu (eAG) 37911-6 154 mg/dL MAGNESIUM - Collect Date/Time: 06/26/2015 06:35 Test Name Code Test Result Test Units Test Ref Range MAGNESIUM 58371-4 2.3 MG/DL L=1.7 H=2.8 Active Medications Medication Code Dose Units Frequency Route Modification Start Date/Time Xarelto 10MG Oral Tablet 5087734 15 MILLIGRAMS TWO TIMES A DAY BY MOUTH 06/26/2015 14:46 Prescription Detail 15 MILLIGRAMS BY MOUTH TWO TIMES A DAY x 20 days then 20mg po QDAY Aspirin 81MG Oral Tablet, Chewable 186673 81 MILLIGRAMS DAILY ORAL 06/26/2015 14:43 Prescription Detail 81 MILLIGRAMS ORAL DAILY Dorzolamide HCl 2% Ophthalmic Solution 330806 1 DROP TWO TIMES A DAY OPTHALMIC 06/26/2015 14:43 Prescription Detail 1 DROP OPTHALMIC TWO TIMES A DAY Latanoprost 0.005% Ophthalmic Solution 453520 1 DROP AT BEDTIME OPTHALMIC 06/26/2015 14:43 Prescription Detail 1 DROP OPTHALMIC AT BEDTIME NovoLIN 70/30 70U-30U/1ML Subcutaneous Suspension 887075 35 UNIT TWO TIMES A DAY SUBCUTANEOUS 06/26/2015 14 :43 Prescription Detail 35 UNIT SUBCUTANEOUS TWO TIMES A DAY Medications Administered During Visit Medication Dose Units Frequency Route Date/ Time of Last Dose ENOXAPARIN 100 MG/ 1 ML BLACK [LOVENOX] 95 MG Q12H SUB Q 06/25/2015 21:49 INSULIN 70/30 (NPH/REG) 100UNITS/ML 10ML 35 EA BID SUB Q 06/26/2015 09:54 RIVAROXABAN [XARELTO] TABLET : 10MG 15 MG BID PO 06/26/2015 09:54 ASPIRIN [CHEWABLE] TAB : 81MG 81 MG DAILY PO 06/26/2015 09:54 LATANOPROST 0.005% [XALATAN] OPHTH FRIDG 1 EA HS BOTHEYES 06/26/2015 00:20 DORZOLAMIDE [TRUSOPT] OPHTH SOLN 2% 1 EA BID BOTHEYES 06/26/2015 09:54 Encounters Encounter Diagnosis Diagnosis Code Start Date Acute embolism and thrombosis of unspecified deep veins of right lower extremity [id number] 06/25/2015 Social History Smoking Status Code Start Date End Date Never smoker [id number] Patient Decision Aids Unknown or Not Available. Discharge Instructions You were admitted to [facility] on 06/25/2015 23:46 with a principal diagnosis of Acute embolism and thrombosis of unspecified deep veins of right lower ext You had the following tests done: BASIC METABOLIC PANEL BEDSIDE GLUCOSE BEDSIDE GLUCOSE BEDSIDE GLUCOSE BEDSIDE GLUCOSE BEDSIDE GLUCOSE CBC W/ AUTO DIFF (RFLX MAN DIFF IF IND) CBC W/ AUTO DIFF (RFLX MAN DIFF IF IND) COMPREHENSIVE METABOLIC PANEL HGB A1C (SEND-OUT) MAGNESIUM PT/PTT PT/PTT You were discharged from [facility] on 06/26/2015 16:51 Should you have any questions prior to discharge, please contact a member of your healthcare team. If you have left the hospital and have any questions, please contact your primary care physician. HOME DIET: DIABETIC DIET CONDITION AT DISMISSAL Stable. HOME MEDICATION INSTRUCTIONS: Take only the medications listed above.. HOME MEDS RETURNED TO PATIENT: Yes. ACTIVITY INSTRUCTIONS(list limitations): Activity as Tolerated. RETURN TO WORK/SCHOOL: N/A. SCRIPTS WRITTEN BY DOCTOR GIVEN TO PATIENT? XARELTO 10MG ORAL TABLET. TAKE 15 MG BY MOUTH TWO TIMES A DAY FOR 20 DAYS. THEN 20 MG BY MOUTH DAILY. RELEVANT CONTACT INFORMATION: VIA [employer]: IMMUNIZATIONS GIVEN DURING HOSPITALIZATION: NONE - PT CURRENT ON FLU AND PNEUMONIA VACC FOLLOW UP CARE - SEE YOUR PHYSICIAN: DR. FAM PALMER ON July AT 2:15 PM. [phone] CONTACT PHYSICIAN IF YOU EXPERIENCE ANY: SHORTNESS OF BREATH, CHEST PAIN, FEVER OR CHILLS, ALTERED MENTAL STATUS. INCREASED SWELLING , LEG PAIN. PERSONAL ITEMS RETURNED: Yes. Bring these instructions to next visit? Yes. VOICES UNDERSTANDING OF INSTRUCTIONS: Yes. INSTRUCTIONS GIVEN BY (TYPE IN NAME AND DATE) DAE JACOBO INSTRUCTIONS GIVEN AND DISCHARGE TO: Patient. CHIEF COMPLAINT: PATIENT PRESENTS TO DR. JONES'S OFFICE WITH C/O RIGHT LEFT PAIN AND WEAKNESS. PATIENT DX WITH DVT BY ESEQUIEL. Chief Complaint and Reason For Visit Chief Complaint Date of Onset DVT RIGHT LEG Function Status Unknown or Not Available. Plan of Care Unknown or Not Available. Referral/Transition of Care Unknown or Not Available.
--- OUTSIDE RECORDS SUMMARY | 2017-07-24 02:33 | XMS REPORT | Continuity of Care Document ---
Author Author [facility] Organization [facility] Address Unknown Phone Unavailable Allergies Active Description Code Type Severity Reaction Onset Reported/Identified Relationship to Patient Clinical Status Yes No Known Drug Allergies [id number] Drug Allergy Unknown N/A 11/25/2012 Medications There is no data. Problems Date Dx Coded Attending Type Code Diagnosis Diagnosed By 11/25/2012 CODI MOULTON Ot 530.81 ESOPHAGEAL REFLUX 11/25/2012 CODI MOULTON Ot 789.02 ABDOMINAL PAIN, LEFT UPPER QUADRANT 02/26/2016 GINA CUNNINGHAM DO Ot C61 MALIGNANT NEOPLASM OF PROSTATE 02/26/2016 GINA CUNNINGHAM DO Ot E11.649 TYPE 2 DIABETES MELLITUS WITH HYPOGLYCEM 02/26/2016 GINA CUNNINGHAM DO Ot I25.2 OLD MYOCARDIAL INFARCTION 02/26/2016 GINA CUNNINGHAM DO Ot I51.7 CARDIOMEGALY 02/26/2016 GINA CUNNINGHAM DO Ot J32.0 CHRONIC MAXILLARY SINUSITIS 02/26/2016 GINA CUNNINGHAM DO Ot R53.1 WEAKNESS 02/26/2016 GINA CUNNINGHAM DO Ot Z79.4 CONSTRUCTION PROJECT ADMINISTRATOR (CURRENT) USE OF INSULIN 02/26/2016 GINA CUNNINGHAM DO Ot Z79.899 OTHER CONSTRUCTION PROJECT ADMINISTRATOR (CURRENT) DRUG THERAPY 02/26/2016 GINA CUNNINGHAM DO Ot Z95.1 PRESENCE OF AORTOCORONARY BYPASS GRAFT 02/26/2016 GINA CUNNINGHAM DO Ot Z96.643 PRESENCE OF ARTIFICIAL HIP JOINT, BILATE 02/26/2016 GINA CUNNINGHAM DO Ot Z96.653 PRESENCE OF ARTIFICIAL KNEE JOINT, BILAT 02/28/2016 DIXIE MATSON, RAUL Wade Ot 952.9 SPINAL CORD INJURY NOS 03/04/2016 CICI LUNAP Ot M47.816 SPONDYLOSIS W/O MYELOPATHY OR RADICULOPA 03/04/2016 CICI LUNA Ot M54.5 LOW BACK PAIN 03/04/2016 CICI LUNA DRIER HELPER Ot Z98.1 ARTHRODESIS STATUS 03/23/2016 CICI LUNA DRIER HELPER Ot M47.816 SPONDYLOSIS W/O MYELOPATHY OR RADICULOPA 03/23/2016 CICI LUNA DRIER HELPER Ot M54.5 LOW BACK PAIN 03/23/2016 CICI LUNA DRIER HELPER Ot Z98.1 ARTHRODESIS STATUS 06/26/2016 FAM PALMER MD Ot E11.649 TYPE 2 DIABETES MELLITUS WITH HYPOGLYCEM 06/26/2016 FAM PALMER MD, Ot G93.41 METABOLIC ENCEPHALOPATHY 06/26/2016 FAM PALMER MD, Ot H40.9 UNSPECIFIED GLAUCOMA 06/26/2016 FAM PALMER MD, Ot I10 ESSENTIAL (PRIMARY) HYPERTENSION 06/26/2016 FAM PALMER MD Ot I25.10 ATHSCL HEART DISEASE OF [place] CORONARY 06/26/2016 FAM PALMER MD Ot I25.2 OLD MYOCARDIAL INFARCTION 06/26/2016 FAM PALMER MD Ot M19.91 PRIMARY OSTEOARTHRITIS, UNSPECIFIED SITE 06/26/2016 FAM PALMER MD Ot Z66 DO NOT RESUSCITATE 06/26/2016 FAM PALMER MD Ot Z79.4 CUSTODIAL (CURRENT) USE OF INSULIN 06/26/2016 FAM PALMER MD Ot Z86.718 PERSONAL HISTORY OF OTHER VENOUS THROMBO 06/26/2016 FAM PALMER MD Ot Z86.73 PRSNL HX OF TIA (TIA), AND CEREB INFRC W 06/26/2016 FAM PALMER MD Ot Z95.1 PRESENCE OF AORTOCORONARY BYPASS GRAFT 06/26/2016 FAM PALMER MD Ot Z96.653 PRESENCE OF ARTIFICIAL KNEE JOINT, BILAT 06/26/2016 FAM PALMER MD Ot E11.649 TYPE 2 DIABETES MELLITUS WITH HYPOGLYCEM 06/26/2016 FAM PALMER MD, Ot G93.41 METABOLIC ENCEPHALOPATHY 06/26/2016 FAM PALMER MD, Ot H40.9 UNSPECIFIED GLAUCOMA 06/26/2016 FAM PALMER MD, Ot I10 ESSENTIAL (PRIMARY) HYPERTENSION 06/26/2016 FAM PALMER MD Ot I25.10 ATHSCL HEART DISEASE OF [place] CORONARY 06/26/2016 FAM PALMER MD Ot I25.2 OLD MYOCARDIAL INFARCTION 06/26/2016 FAM PALMER MD, Ot M19.91 PRIMARY OSTEOARTHRITIS, UNSPECIFIED SITE 06/26/2016 FAM PALMER MD Ot Z66 DO NOT RESUSCITATE 06/26/2016 FAM PALMER MD Ot Z79.4 CUSTODIAL (CURRENT) USE OF INSULIN 06/26/2016 FAM PALMER MD Ot Z86.718 PERSONAL HISTORY OF OTHER VENOUS THROMBO 06/26/2016 FAM PALMER MD, Ot Z86.73 PRSNL HX OF TIA (TIA), AND CEREB INFRC W 06/26/2016 FAM PALMER MD Ot Z95.1 PRESENCE OF AORTOCORONARY BYPASS GRAFT 06/26/2016 FAM PALMER MD Ot Z96.653 PRESENCE OF ARTIFICIAL KNEE JOINT, BILAT 06/26/2016 FAM PALMER MD Ot E11.649 TYPE 2 DIABETES MELLITUS WITH HYPOGLYCEM 06/26/2016 FAM PALMER MD Ot G93.41 METABOLIC ENCEPHALOPATHY 06/26/2016 FAM PALMER MD Ot H40.9 UNSPECIFIED GLAUCOMA 06/26/2016 FAM PALMER MD, Ot I10 ESSENTIAL (PRIMARY) HYPERTENSION 06/26/2016 FAM PALMER MD Ot I25.10 ATHSCL HEART DISEASE OF [place] CORONARY 06/26/2016 FAM PALMER MD Ot I25.2 OLD MYOCARDIAL INFARCTION 06/26/2016 FAM PALMER MD, Ot M19.91 PRIMARY OSTEOARTHRITIS, UNSPECIFIED SITE 06/26/2016 FAM PALMER MD Ot Z66 DO NOT RESUSCITATE 06/26/2016 FAM PALMER MD, Ot Z79.4 CUSTODIAL (CURRENT) USE OF INSULIN 06/26/2016 FAM PALMER MD, Ot Z86.718 PERSONAL HISTORY OF OTHER VENOUS THROMBO 06/26/2016 FAM PALMER MD, Ot Z86.73 PRSNL HX OF TIA (TIA), AND CEREB INFRC W 06/26/2016 FAM PALMER MD Ot Z95.1 PRESENCE OF AORTOCORONARY BYPASS GRAFT 06/26/2016 FAM PALEMR MD Ot Z96.653 PRESENCE OF ARTIFICIAL KNEE JOINT, BILAT 06/30/2016 FAM PALMER MD Ot E11.649 TYPE 2 DIABETES MELLITUS WITH HYPOGLYCEM 06/30/2016 FAM PALMER MD Ot G93.41 METABOLIC ENCEPHALOPATHY 06/30/2016 FAM PALMER MD, Ot H40.9 UNSPECIFIED GLAUCOMA 06/30/2016 FAM PALMER MD, Ot I10 ESSENTIAL (PRIMARY) HYPERTENSION 06/30/2016 FAM PALMER MD, Ot I25.10 ATHSCL HEART DISEASE OF [place] CORONARY 06/30/2016 FAM PALMER MD, Ot I25.2 OLD MYOCARDIAL INFARCTION 06/30/2016 FAM PALMER MD, Ot I65.23 OCCLUSION AND STENOSIS OF BILATERAL [place] 06/30/2016 FAM PALMER MD, Ot M19.91 PRIMARY OSTEOARTHRITIS, UNSPECIFIED SITE 06/30/2016 FAM PALMER MD, Ot R50.9 FEVER, UNSPECIFIED 06/30/2016 FAM PALMER MD, Ot R53.1 WEAKNESS 06/30/2016 FAM PALMER MD, Ot Z66 DO NOT RESUSCITATE 06/30/2016 FAM PALMER MD, Ot Z79.4 CONSTRUCTION PROJECT ADMINISTRATOR (CURRENT) USE OF INSULIN 06/30/2016 FAM PALMER MD, Ot Z86.718 PERSONAL HISTORY OF OTHER VENOUS THROMBO 06/30/2016 FAM PALMER MD, Ot Z86.73 PRSNL HX OF TIA (TIA), AND CEREB INFRC W 06/30/2016 FAM PALMER MD, Ot Z95.1 PRESENCE OF AORTOCORONARY BYPASS GRAFT 06/30/2016 FAM PALMER MD, Ot Z96.653 PRESENCE OF ARTIFICIAL KNEE JOINT, BILAT 07/28/2016 LARISA MALDONADO Ot E11.9 TYPE 2 DIABETES MELLITUS WITHOUT COMPLIC 07/28/2016 LARISA MALDONADO Ot I10 ESSENTIAL (PRIMARY) HYPERTENSION 07/28/2016 LARISA MALDONADO Ot I65.23 OCCLUSION AND STENOSIS OF BILATERAL [place] 07/30/2016 LARISA MALDONADO Ot E11.9 TYPE 2 DIABETES MELLITUS WITHOUT COMPLIC 07/30/2016 LARISA MALDONADO Ot I10 ESSENTIAL (PRIMARY) HYPERTENSION 07/30/2016 MALDONADO, LARISA M DRIER HELPER Ot I65.23 OCCLUSION AND STENOSIS OF BILATERAL [place] 07/30/2016 MALDONADOLARISA HARTMANN DRIER HELPER Ot E11.9 TYPE 2 DIABETES MELLITUS WITHOUT COMPLIC 07/30/2016 LARISA MALDONADO DRIER HELPER Ot I10 ESSENTIAL (PRIMARY) HYPERTENSION 07/30/2016 LARISA MALDONADOP Ot I65.23 OCCLUSION AND STENOSIS OF BILATERAL [place] 08/14/2016 LARISA MALDONADOP Ot E11.9 TYPE 2 DIABETES MELLITUS WITHOUT COMPLIC 08/14/2016 MALDONADOLARISA HARTMANN DRIER HELPER Ot I10 ESSENTIAL (PRIMARY) HYPERTENSION 08/14/2016 MALDONADOLARISA HARTMANN DRIER HELPER Ot I65.23 OCCLUSION AND STENOSIS OF BILATERAL [place] 09/17/2016 LARISA MALDONADO DRIER HELPER Ot E11.9 TYPE 2 DIABETES MELLITUS WITHOUT COMPLIC 09/17/2016 LARISA MALDONADO DRIER HELPER Ot I10 ESSENTIAL (PRIMARY) HYPERTENSION 09/17/2016 LARISA MALDONADO DRIER HELPER Ot I65.23 OCCLUSION AND STENOSIS OF BILATERAL [place] Procedures There is no data. Results Test Result Range Complete blood count (CBC) with automated white blood cell (WBC) differential - 02/26/16 06:15 Blood leukocytes automated count (number/volume) 5.3 10*3/uL 4.3-11.0 Blood erythrocytes automated count (number/volume) 4.92 10*6/uL 4.35-5.85 Venous blood hemoglobin measurement (mass/volume) 14.8 g/dL 13.3-17.7 Blood hematocrit (volume fraction) 44 % 40-54 Automated erythrocyte mean corpuscular volume 90 [foz_us] 80-99 Automated erythrocyte mean corpuscular hemoglobin (mass per erythrocyte) 30 pg 25-34 Automated erythrocyte mean corpuscular hemoglobin concentration measurement ( mass/volume) 33 g/dL 32-36 Automated erythrocyte distribution width ratio 12.9 % 10.0-14.5 Automated blood platelet count (count/volume) 167 10*3/uL 130-400 Automated blood platelet mean volume measurement 10.6 [foz_us] 7.4-10.4 Automated blood neutrophils/100 leukocytes 62 % 42-75 Automated blood lymphocytes/100 leukocytes 25 % 12-44 Blood monocytes/100 leukocytes 9 % 0-12 Automated blood eosinophils/100 leukocytes 4 % 0-10 Automated blood basophils/100 leukocytes 1 % 0-10 Blood neutrophils automated count (number/volume) 3.3 10*3 1.8-7.8 Blood lymphocytes automated count (number/volume) 1.3 10*3 1.0-4.0 Blood monocytes automated count (number/volume) 0.5 10*3 0.0-1.0 Automated eosinophil count 0.2 10*3/uL 0.0-0.3 Automated blood basophil count (count/volume) 0.0 10*3/uL 0.0-0.1 PT panel in platelet poor plasma by coagulation assay - 02/26/16 06:15 Prothrombin time (PT) in platelet poor plasma by coagulation assay 13.0 s 12.2-14.7 INR in platelet poor plasma or blood by coagulation assay 1.0 0.8-1.4 Activated partial thromboplastin time (aPTT) in platelet poor plasma bycoagulation assay - 02/26/16 06:15 Activated partial thromboplastin time (aPTT) in platelet poor plasma bycoagulation assay 31 s 24-35 Comprehensive metabolic panel - 02/26/16 06:15 Serum or plasma sodium measurement (moles/volume) 140 mmol/L 135-145 Serum or plasma potassium measurement (moles/volume) 4.2 mmol/L 3.6-5.0 Serum or plasma chloride measurement (moles/volume) 109 mmol/L 98-107 Carbon dioxide 21 mmol/L 21-32 Serum or plasma anion gap determination (moles/volume) 10 mmol/L 5-14 Serum or plasma urea nitrogen measurement (mass/volume) 17 mg/dL 7-18 Serum or plasma creatinine measurement (mass/volume) 1.52 mg/dL 0.60-1.30 Serum or plasma urea nitrogen/creatinine mass ratio 11 NRG Serum or plasma creatinine measurement with calculation of estimated glomerular filtration rate 44 NRG Serum or plasma glucose measurement (mass/volume) 211 mg/dL 70-105 Serum or plasma calcium measurement (mass/volume) 9.0 mg/dL 8.5-10.1 Serum or plasma total bilirubin measurement (mass/volume) 1.0 mg/dL 0.1-1.0 Serum or plasma alkaline phosphatase measurement (enzymatic activity/volume) 103 U/L 40-136 Serum or plasma aspartate aminotransferase measurement (enzymatic activity/ volume) 23 U/L 5-34 Serum or plasma alanine aminotransferase measurement (enzymatic activity/volume ) 22 U/L 0-55 Serum or plasma protein measurement (mass/volume) 7.0 g/dL 6.4-8.2 Serum or plasma albumin measurement (mass/volume) 4.0 g/dL 3.2-4.5 Magnesium - 02/26/16 06:15 Magnesium 2.4 mg/dL 1.8-2.4 Serum or plasma troponin i.cardiac measurement (mass/volume) - 02/26/16 06:15 Serum or plasma troponin i.cardiac measurement (mass/volume) < ng/ mL <0.30 Serum or plasma amylase measurement (enzymatic activity/volume) - 02/26/16 06: 15 Serum or plasma amylase measurement (enzymatic activity/volume) 28 U /L 25-125 Lipase - 02/26/16 06:15 Lipase 13 U/L 8-78 Serum or plasma thyrotropin measurement by detection limit <=0.05 miu/l (units/ volume) - 02/26/16 06:15 Serum or plasma thyrotropin measurement by detection limit <=0.05 miu/l (units/ volume) 1.02 u[iU]/mL 0.35-4.94 Complete urinalysis with reflex to culture - 02/26/16 07:00 Urine color determination YELLOW NRG Urine clarity determination CLEAR NRG Urine pH measurement by test strip 6 5-9 Specific gravity of urine by test strip 1.020 1.016- 1.022 Urine protein assay by test strip, semi-quantitative 1+ NEGATIVE Urine glucose detection by automated test strip 1+ NEGATIVE Erythrocytes detection in urine sediment by light microscopy NEGATIVE NEGATIVE Urine ketones detection by automated test strip NEGATIVE NEGATIVE Urine nitrite detection by test strip NEGATIVE NEGATIVE Urine total bilirubin detection by test strip NEGATIVE NEGATIVE Urine urobilinogen measurement by automated test strip (mass/volume) NORMAL NORMAL Urine leukocyte esterase detection by dipstick NEGATIVE NEGATIVE Automated urine sediment erythrocyte count by microscopy (number/high power field) NONE NRG Automated urine sediment leukocyte count by microscopy (number/high power field ) RARE NRG Bacteria detection in urine sediment by light microscopy NEGATIVE NRG Squamous epithelial cells detection in urine sediment by light microscopy RARE NRG Crystals detection in urine sediment by light microscopy NONE NRG Casts detection in urine sediment by light microscopy NONE NRG Mucus detection in urine sediment by light microscopy NEGATIVE NRG Complete urinalysis with reflex to culture NO NRG Complete blood count (CBC) with automated white blood cell (WBC) differential - 06/25/16 10:46 Blood leukocytes automated count (number/volume) 8.9 10*3/uL 4.3-11.0 Blood erythrocytes automated count (number/volume) 4.89 10*6/uL 4.35-5.85 Venous blood hemoglobin measurement (mass/volume) 14.8 g/dL 13.3-17.7 Blood hematocrit (volume fraction) 44 % 40-54 Automated erythrocyte mean corpuscular volume 90 [foz_us] 80-99 Automated erythrocyte mean corpuscular hemoglobin (mass per erythrocyte) 30 pg 25-34 Automated erythrocyte mean corpuscular hemoglobin concentration measurement ( mass/volume) 34 g/dL 32-36 Automated erythrocyte distribution width ratio 12.9 % 10.0-14.5 Automated blood platelet count (count/volume) 162 10*3/uL 130-400 Automated blood platelet mean volume measurement 10.7 [foz_us] 7.4-10.4 Automated blood neutrophils/100 leukocytes 87 % 42-75 Automated blood lymphocytes/100 leukocytes 8 % 12-44 Blood monocytes/100 leukocytes 5 % 0-12 Automated blood eosinophils/100 leukocytes 0 % 0-10 Automated blood basophils/100 leukocytes 0 % 0-10 Blood neutrophils automated count (number/volume) 7.8 10*3 1.8-7.8 Blood lymphocytes automated count (number/volume) 0.7 10*3 1.0-4.0 Blood monocytes automated count (number/volume) 0.4 10*3 0.0-1.0 Automated eosinophil count 0.0 10*3/uL 0.0-0.3 Automated blood basophil count (count/volume) 0.0 10*3/uL 0.0-0.1 Comprehensive metabolic panel - 06/25/16 10:46 Serum or plasma sodium measurement (moles/volume) 139 mmol/L 135-145 Serum or plasma potassium measurement (moles/volume) 4.2 mmol/L 3.6-5.0 Serum or plasma chloride measurement (moles/volume) 107 mmol/L 98-107 Carbon dioxide 21 mmol/L 21-32 Serum or plasma anion gap determination (moles/volume) 11 mmol/L 5-14 Serum or plasma urea nitrogen measurement (mass/volume) 19 mg/dL 7-18 Serum or plasma creatinine measurement (mass/volume) 1.44 mg/dL 0.60-1.30 Serum or plasma urea nitrogen/creatinine mass ratio 13 NRG Serum or plasma creatinine measurement with calculation of estimated glomerular filtration rate 46 NRG Serum or plasma glucose measurement (mass/volume) 141 mg/dL 70-105 Serum or plasma calcium measurement (mass/volume) 9.0 mg/dL 8.5-10.1 Serum or plasma total bilirubin measurement (mass/volume) 0.7 mg/dL 0.1-1.0 Serum or plasma alkaline phosphatase measurement (enzymatic activity/volume) 96 U/L 40-136 Serum or plasma aspartate aminotransferase measurement (enzymatic activity/ volume) 25 U/L 5-34 Serum or plasma alanine aminotransferase measurement (enzymatic activity/volume ) 21 U/L 0-55 Serum or plasma protein measurement (mass/volume) 7.1 g/dL 6.4-8.2 Serum or plasma albumin measurement (mass/volume) 4.0 g/dL 3.2-4.5 Capillary blood glucose measurement by glucometer (mass/volume) - 06/25/16 10: 47 Capillary blood glucose measurement by glucometer (mass/volume) 196 mg/dL 70-110 Complete urinalysis with reflex to culture - 06/25/16 11:45 Urine color determination YELLOW NRG Urine clarity determination CLEAR NRG Urine pH measurement by test strip 5 5-9 Specific gravity of urine by test strip 1.020 1.016- 1.022 Urine protein assay by test strip, semi-quantitative 2+ NEGATIVE Urine glucose detection by automated test strip 1+ NEGATIVE Erythrocytes detection in urine sediment by light microscopy NEGATIVE NEGATIVE Urine ketones detection by automated test strip NEGATIVE NEGATIVE Urine nitrite detection by test strip NEGATIVE NEGATIVE Urine total bilirubin detection by test strip NEGATIVE NEGATIVE Urine urobilinogen measurement by automated test strip (mass/volume) NORMAL NORMAL Urine leukocyte esterase detection by dipstick NEGATIVE NEGATIVE Automated urine sediment erythrocyte count by microscopy (number/high power field) NONE NRG Automated urine sediment leukocyte count by microscopy (number/high power field ) RARE NRG Bacteria detection in urine sediment by light microscopy TRACE NRG Squamous epithelial cells detection in urine sediment by light microscopy RARE NRG Crystals detection in urine sediment by light microscopy NONE NRG Casts detection in urine sediment by light microscopy PRESENT NRG Mucus detection in urine sediment by light microscopy SMALL NRG Complete urinalysis with reflex to culture NO NRG Hyaline casts detection in urine sediment by light microscopy RARE NRG Granular casts detection in urine sediment by light microscopy RARE NRG Capillary blood glucose measurement by glucometer (mass/volume) - 06/25/16 12: 43 Capillary blood glucose measurement by glucometer (mass/volume) 72 mg/dL 70-110 Capillary blood glucose measurement by glucometer (mass/volume) - 06/25/16 14: 56 Capillary blood glucose measurement by glucometer (mass/volume) 47 mg/dL 70-110 Capillary blood glucose measurement by glucometer (mass/volume) - 06/25/16 15: 35 Capillary blood glucose measurement by glucometer (mass/volume) 76 mg/dL 70-110 Capillary blood glucose measurement by glucometer (mass/volume) - 06/25/16 16: 17 Capillary blood glucose measurement by glucometer (mass/volume) 140 mg/dL 70-110 Capillary blood glucose measurement by glucometer (mass/volume) - 06/25/16 17: 29 Capillary blood glucose measurement by glucometer (mass/volume) 174 mg/dL 70-110 Bacterial blood culture - 06/25/16 18:45 Bacterial blood culture NG [facility] Blood lactic acid measurement (moles/volume) - 06/25/16 18:53 Blood lactic acid measurement (moles/volume) 1.5 mmol/L 0.5-2.0 THYROID STIMULATING HORMONE - 06/25/16 18:53 THYROID STIMULATING HORMONE 0.37 u[iU]/mL 0.35-4.94 Serum or plasma C reactive protein measurement (mass/volume) - 06/25/16 18:53 Serum or plasma C reactive protein measurement (mass/volume) 0.21 mg /dL 0.00-0.50 Serum or plasma ethanol measurement (mass/volume) - 06/25/16 18:53 Serum or plasma ethanol measurement (mass/volume) < mg/dL <10 Bacterial blood culture - 06/25/16 18:53 Bacterial blood culture NG NRG Tick identification panel - 06/25/16 18:53 Serum Ehrlichia chaffeensis IgG antibody detection <1:16 <1:16 Serum Ehrlichia chaffeensis IgM antibody detection <1:10 <1:10 Serum Rickettsia rickettsii IgG antibody assay (units/volume) <1:16 <1:16 [place] spotted fever panel <1:10 <1:10 Francisella tularensis antibody assay <1:20 NRG Borrelia burgdorferi (Lyme disease) antibody 0.34 0.00- 0.90 Capillary blood glucose measurement by glucometer (mass/volume) - 06/25/16 19: 57 Capillary blood glucose measurement by glucometer (mass/volume) 92 mg/dL 70-110 Capillary blood glucose measurement by glucometer (mass/volume) - 06/25/16 21: 56 Capillary blood glucose measurement by glucometer (mass/volume) 103 mg/dL 70-110 Capillary blood glucose measurement by glucometer (mass/volume) - 06/25/16 23: 50 Capillary blood glucose measurement by glucometer (mass/volume) 81 mg/dL 70-110 Capillary blood glucose measurement by glucometer (mass/volume) - 06/26/16 01: 53 Capillary blood glucose measurement by glucometer (mass/volume) 108 mg/dL 70-110 Capillary blood glucose measurement by glucometer (mass/volume) - 06/26/16 03: 56 Capillary blood glucose measurement by glucometer (mass/volume) 109 mg/dL 70-110 Capillary blood glucose measurement by glucometer (mass/volume) - 06/26/16 05: 53 Capillary blood glucose measurement by glucometer (mass/volume) 119 mg/dL 70-110 Automated blood complete blood count (hemogram) panel - 06/26/16 06:46 Blood leukocytes automated count (number/volume) 8.3 10*3/uL 4.3-11.0 Blood erythrocytes automated count (number/volume) 4.38 10*6/uL 4.35-5.85 Venous blood hemoglobin measurement (mass/volume) 13.2 g/dL 13.3-17.7 Blood hematocrit (volume fraction) 40 % 40-54 Automated erythrocyte mean corpuscular volume 92 [foz_us] 80-99 Automated erythrocyte mean corpuscular hemoglobin (mass per erythrocyte) 30 pg 25-34 Automated erythrocyte mean corpuscular hemoglobin concentration measurement ( mass/volume) 33 g/dL 32-36 Automated erythrocyte distribution width ratio 13.0 % 10.0-14.5 Automated blood platelet count (count/volume) 133 10*3/uL 130-400 Automated blood platelet mean volume measurement 11.6 [foz_us] 7.4-10.4 Comprehensive metabolic panel - 06/26/16 06:46 Serum or plasma sodium measurement (moles/volume) 140 mmol/L 135-145 Serum or plasma potassium measurement (moles/volume) 4.2 mmol/L 3.6-5.0 Serum or plasma chloride measurement (moles/volume) 110 mmol/L 98-107 Carbon dioxide 24 mmol/L 21-32 Serum or plasma anion gap determination (moles/volume) 6 mmol/L 5-14 Serum or plasma urea nitrogen measurement (mass/volume) 19 mg/dL 7-18 Serum or plasma creatinine measurement (mass/volume) 1.49 mg/dL 0.60-1.30 Serum or plasma urea nitrogen/creatinine mass ratio 13 NRG Serum or plasma creatinine measurement with calculation of estimated glomerular filtration rate 45 NRG Serum or plasma glucose measurement (mass/volume) 147 mg/dL 70-105 Serum or plasma calcium measurement (mass/volume) 8.3 mg/dL 8.5-10.1 Serum or plasma total bilirubin measurement (mass/volume) 1.0 mg/dL 0.1-1.0 Serum or plasma alkaline phosphatase measurement (enzymatic activity/volume) 78 U/L 40-136 Serum or plasma aspartate aminotransferase measurement (enzymatic activity/ volume) 47 U/L 5-34 Serum or plasma alanine aminotransferase measurement (enzymatic activity/volume ) 21 U/L 0-55 Serum or plasma protein measurement (mass/volume) 6.1 g/dL 6.4-8.2 Serum or plasma albumin measurement (mass/volume) 3.4 g/dL 3.2-4.5 Erythrocyte sedimentation rate by westergren method - 06/26/16 06:46 Erythrocyte sedimentation rate by westergren method 9 mm NRG Capillary blood glucose measurement by glucometer (mass/volume) - 06/26/16 08: 02 Capillary blood glucose measurement by glucometer (mass/volume) 174 mg/dL 70-110 Capillary blood glucose measurement by glucometer (mass/volume) - 06/26/16 10: 13 Capillary blood glucose measurement by glucometer (mass/volume) 155 mg/dL 70-110 Capillary blood glucose measurement by glucometer (mass/volume) - 06/26/16 12: 14 Capillary blood glucose measurement by glucometer (mass/volume) 233 mg/dL 70-110 Capillary blood glucose measurement by glucometer (mass/volume) - 06/26/16 15: 08 Capillary blood glucose measurement by glucometer (mass/volume) 237 mg/dL 70-110 Capillary blood glucose measurement by glucometer (mass/volume) - 06/26/16 15: 59 Capillary blood glucose measurement by glucometer (mass/volume) 242 mg/dL 70-110 Capillary blood glucose measurement by glucometer (mass/volume) - 06/26/16 18: 03 Capillary blood glucose measurement by glucometer (mass/volume) 209 mg/dL 70-110 Capillary blood glucose measurement by glucometer (mass/volume) - 06/26/16 20: 32 Capillary blood glucose measurement by glucometer (mass/volume) 193 mg/dL 70-110 Capillary blood glucose measurement by glucometer (mass/volume) - 06/26/16 22: 15 Capillary blood glucose measurement by glucometer (mass/volume) 165 mg/dL 70-110 Capillary blood glucose measurement by glucometer (mass/volume) - 06/26/16 23: 52 Capillary blood glucose measurement by glucometer (mass/volume) 166 mg/dL 70-110 Capillary blood glucose measurement by glucometer (mass/volume) - 06/27/16 02: 01 Capillary blood glucose measurement by glucometer (mass/volume) 164 mg/dL 70-110 Capillary blood glucose measurement by glucometer (mass/volume) - 06/27/16 04: 06 Capillary blood glucose measurement by glucometer (mass/volume) 144 mg/dL 70-110 Automated blood complete blood count (hemogram) panel - 06/27/16 04:45 Blood leukocytes automated count (number/volume) 6.3 10*3/uL 4.3-11.0 Blood erythrocytes automated count (number/volume) 4.26 10*6/uL 4.35-5.85 Venous blood hemoglobin measurement (mass/volume) 12.9 g/dL 13.3-17.7 Blood hematocrit (volume fraction) 39 % 40-54 Automated erythrocyte mean corpuscular volume 91 [foz_us] 80-99 Automated erythrocyte mean corpuscular hemoglobin (mass per erythrocyte) 30 pg 25-34 Automated erythrocyte mean corpuscular hemoglobin concentration measurement ( mass/volume) 33 g/dL 32-36 Automated erythrocyte distribution width ratio 12.8 % 10.0-14.5 Automated blood platelet count (count/volume) 122 10*3/uL 130-400 Automated blood platelet mean volume measurement 11.1 [foz_us] 7.4-10.4 Whole blood basic metabolic panel - 06/27/16 04:45 Serum or plasma sodium measurement (moles/volume) 141 mmol/L 135-145 Serum or plasma potassium measurement (moles/volume) 4.0 mmol/L 3.6-5.0 Serum or plasma chloride measurement (moles/volume) 112 mmol/L 98-107 Carbon dioxide 23 mmol/L 21-32 Serum or plasma anion gap determination (moles/volume) 6 mmol/L 5-14 Serum or plasma urea nitrogen measurement (mass/volume) 18 mg/dL 7-18 Serum or plasma creatinine measurement (mass/volume) 1.37 mg/dL 0.60-1.30 Serum or plasma urea nitrogen/creatinine mass ratio 13 NRG Serum or plasma creatinine measurement with calculation of estimated glomerular filtration rate 49 NRG Serum or plasma glucose measurement (mass/volume) 139 mg/dL 70-105 Serum or plasma calcium measurement (mass/volume) 8.1 mg/dL 8.5-10.1 Liver function panel (serum or plasma alk phos, alb, total and direct bili, total protein, ALT, AST) - 06/27/16 04:45 Serum or plasma total bilirubin measurement (mass/volume) 1.0 mg/dL 0.1-1.0 Serum or plasma alkaline phosphatase measurement (enzymatic activity/volume) 78 U/L 40-136 Serum or plasma aspartate aminotransferase measurement (enzymatic activity/ volume) 50 U/L 5-34 Serum or plasma alanine aminotransferase measurement (enzymatic activity/volume ) 23 U/L 0-55 Serum or plasma protein measurement (mass/volume) 5.9 g/dL 6.4-8.2 Serum or plasma albumin measurement (mass/volume) 3.3 g/dL 3.2-4.5 Bilirubin direct 0.4 mg/dL 0.0-0.3 Serum or plasma indirect bilirubin measurement (mass/volume) 0.6 mg/ dL NRG Capillary blood glucose measurement by glucometer (mass/volume) - 06/27/16 06: 22 Capillary blood glucose measurement by glucometer (mass/volume) 137 mg/dL 70-110 Capillary blood glucose measurement by glucometer (mass/volume) - 06/27/16 08: 32 Capillary blood glucose measurement by glucometer (mass/volume) 123 mg/dL 70-110 Capillary blood glucose measurement by glucometer (mass/volume) - 06/27/16 10: 27 Capillary blood glucose measurement by glucometer (mass/volume) 117 mg/dL 70-110 Capillary blood glucose measurement by glucometer (mass/volume) - 06/27/16 15: 35 Capillary blood glucose measurement by glucometer (mass/volume) 186 mg/dL 70-110 Capillary blood glucose measurement by glucometer (mass/volume) - 06/27/16 17: 58 Capillary blood glucose measurement by glucometer (mass/volume) 171 mg/dL 70-110 Capillary blood glucose measurement by glucometer (mass/volume) - 06/27/16 19: 58 Capillary blood glucose measurement by glucometer (mass/volume) 169 mg/dL 70-110 Capillary blood glucose measurement by glucometer (mass/volume) - 06/27/16 22: 15 Capillary blood glucose measurement by glucometer (mass/volume) 158 mg/dL 70-110 Capillary blood glucose measurement by glucometer (mass/volume) - 06/27/16 23: 48 Capillary blood glucose measurement by glucometer (mass/volume) 154 mg/dL 70-110 Capillary blood glucose measurement by glucometer (mass/volume) - 06/28/16 01: 54 Capillary blood glucose measurement by glucometer (mass/volume) 126 mg/dL 70-110 Capillary blood glucose measurement by glucometer (mass/volume) - 06/28/16 03: 48 Capillary blood glucose measurement by glucometer (mass/volume) 138 mg/dL 70-110 Automated blood complete blood count (hemogram) panel - 06/28/16 05:10 Blood leukocytes automated count (number/volume) 5.8 10*3/uL 4.3-11.0 Blood erythrocytes automated count (number/volume) 4.12 10*6/uL 4.35-5.85 Venous blood hemoglobin measurement (mass/volume) 12.5 g/dL 13.3-17.7 Blood hematocrit (volume fraction) 37 % 40-54 Automated erythrocyte mean corpuscular volume 91 [foz_us] 80-99 Automated erythrocyte mean corpuscular hemoglobin (mass per erythrocyte) 30 pg 25-34 Automated erythrocyte mean corpuscular hemoglobin concentration measurement ( mass/volume) 34 g/dL 32-36 Automated erythrocyte distribution width ratio 12.7 % 10.0-14.5 Automated blood platelet count (count/volume) 120 10*3/uL 130-400 Automated blood platelet mean volume measurement 11.1 [foz_us] 7.4-10.4 Whole blood basic metabolic panel - 06/28/16 05:10 Serum or plasma sodium measurement (moles/volume) 139 mmol/L 135-145 Serum or plasma potassium measurement (moles/volume) 4.1 mmol/L 3.6-5.0 Serum or plasma chloride measurement (moles/volume) 111 mmol/L 98-107 Carbon dioxide 21 mmol/L 21-32 Serum or plasma anion gap determination (moles/volume) 7 mmol/L 5-14 Serum or plasma urea nitrogen measurement (mass/volume) 20 mg/dL 7-18 Serum or plasma creatinine measurement (mass/volume) 1.28 mg/dL 0.60-1.30 Serum or plasma urea nitrogen/creatinine mass ratio 16 NRG Serum or plasma creatinine measurement with calculation of estimated glomerular filtration rate 53 NRG Serum or plasma glucose measurement (mass/volume) 131 mg/dL 70-105 Serum or plasma calcium measurement (mass/volume) 8.2 mg/dL 8.5-10.1 Capillary blood glucose measurement by glucometer (mass/volume) - 06/28/16 05: 50 Capillary blood glucose measurement by glucometer (mass/volume) 135 mg/dL 70-110 Capillary blood glucose measurement by glucometer (mass/volume) - 06/28/16 07: 56 Capillary blood glucose measurement by glucometer (mass/volume) 132 mg/dL 70-110 Capillary blood glucose measurement by glucometer (mass/volume) - 06/28/16 10: 59 Capillary blood glucose measurement by glucometer (mass/volume) 195 mg/dL 70-110 Capillary blood glucose measurement by glucometer (mass/volume) - 06/28/16 15: 46 Capillary blood glucose measurement by glucometer (mass/volume) 121 mg/dL 70-110 Capillary blood glucose measurement by glucometer (mass/volume) - 06/28/16 20: 48 Capillary blood glucose measurement by glucometer (mass/volume) 142 mg/dL 70-110 Automated blood complete blood count (hemogram) panel - 06/29/16 05:45 Blood leukocytes automated count (number/volume) 5.5 10*3/uL 4.3-11.0 Blood erythrocytes automated count (number/volume) 4.08 10*6/uL 4.35-5.85 Venous blood hemoglobin measurement (mass/volume) 12.4 g/dL 13.3-17.7 Blood hematocrit (volume fraction) 37 % 40-54 Automated erythrocyte mean corpuscular volume 90 [foz_us] 80-99 Automated erythrocyte mean corpuscular hemoglobin (mass per erythrocyte) 30 pg 25-34 Automated erythrocyte mean corpuscular hemoglobin concentration measurement ( mass/volume) 34 g/dL 32-36 Automated erythrocyte distribution width ratio 12.6 % 10.0-14.5 Automated blood platelet count (count/volume) 128 10*3/uL 130-400 Automated blood platelet mean volume measurement 11.3 [foz_us] 7.4-10.4 Liver function panel (serum or plasma alk phos, alb, total and direct bili, total protein, ALT, AST) - 06/29/16 05:45 Serum or plasma total bilirubin measurement (mass/volume) 1.2 mg/dL 0.1-1.0 Serum or plasma alkaline phosphatase measurement (enzymatic activity/volume) 81 U/L 40-136 Serum or plasma aspartate aminotransferase measurement (enzymatic activity/ volume) 43 U/L 5-34 Serum or plasma alanine aminotransferase measurement (enzymatic activity/volume ) 28 U/L 0-55 Serum or plasma protein measurement (mass/volume) 6.0 g/dL 6.4-8.2 Serum or plasma albumin measurement (mass/volume) 3.3 g/dL 3.2-4.5 Bilirubin direct 0.4 mg/dL 0.0-0.3 Serum or plasma indirect bilirubin measurement (mass/volume) 0.8 mg/ dL NR Whole blood basic metabolic panel - 06/29/16 05:45 Serum or plasma sodium measurement (moles/volume) 140 mmol/L 135-145 Serum or plasma potassium measurement (moles/volume) 3.9 mmol/L 3.6-5.0 Serum or plasma chloride measurement (moles/volume) 110 mmol/L 98-107 Carbon dioxide 22 mmol/L 21-32 Serum or plasma anion gap determination (moles/volume) 8 mmol/L 5-14 Serum or plasma urea nitrogen measurement (mass/volume) 18 mg/dL 7-18 Serum or plasma creatinine measurement (mass/volume) 1.27 mg/dL 0.60-1.30 Serum or plasma urea nitrogen/creatinine mass ratio 14 NR Serum or plasma creatinine measurement with calculation of estimated glomerular filtration rate 54 NRG Serum or plasma glucose measurement (mass/volume) 119 mg/dL 70-105 Serum or plasma calcium measurement (mass/volume) 8.4 mg/dL 8.5-10.1 Capillary blood glucose measurement by glucometer (mass/volume) - 06/29/16 11: 13 Capillary blood glucose measurement by glucometer (mass/volume) 127 mg/dL 70-110 Capillary blood glucose measurement by glucometer (mass/volume) - 06/29/16 16: 09 Capillary blood glucose measurement by glucometer (mass/volume) 109 mg/dL 70-110 Capillary blood glucose measurement by glucometer (mass/volume) - 06/29/16 20: 59 Capillary blood glucose measurement by glucometer (mass/volume) 142 mg/dL 70-110 Capillary blood glucose measurement by glucometer (mass/volume) - 06/30/16 07: 10 Capillary blood glucose measurement by glucometer (mass/volume) 112 mg/dL 70-110 [id number] - 07/24/16 08:12 Serum or plasma urea nitrogen measurement (mass/volume) 22 mg/dL 7-18 Serum or plasma creatinine measurement (mass/volume) 1.52 mg/dL 0.60-1.30 Serum or plasma urea nitrogen/creatinine mass ratio 14 NRG Serum or plasma creatinine measurement with calculation of estimated glomerular filtration rate 43 NRG Capillary blood glucose measurement by glucometer (mass/volume) - 07/30/16 07: 43 Capillary blood glucose measurement by glucometer (mass/volume) 290 mg/dL 70-110 Serum or plasma creatinine measurement (mass/volume) - 07/30/16 09:50 Serum or plasma creatinine measurement (mass/volume) 1.46 mg/dL 0.60-1.30 Encounters ACCT No. Visit Date/Time Discharge Status Pt. Type Provider Facility Loc./Unit Complaint [id number] 07/30/2016 07:26:00 07/30/2016 23:59:59 CLS Outpatient LARISA MALDONADO [facility] RAD CAROTID ARTERY STENOSIS,BILATERAL [id number] 07/24/2016 08:01:00 07/24/2016 23:59:59 CLS Outpatient LARISA MALDONADO [facility] RAD CAROTID ARTERY STENOSIS,BILATERAL [id number] 06/25/2016 18:13:00 06/30/2016 10:40:00 DIS Inpatient SPENCER MATSON, FAM Miranda [facility] 4TH HYPOGLYCEMIA; GLOBAL ENCEPHALOPHATHY [id number] 02/28/2016 09:14:00 02/28/2016 23:59:59 CLS Outpatient CICI LUNA [facility] RAD LOW BACK PAIN [id number] 02/26/2016 06:15:00 02/26/2016 07:56:00 DIS Emergency GINA CUNNINGHAM DO K [facility] ER HYPOGLYCEMIC [id number] 12/05/2012 14:34:00 12/05/2012 23:59:59 CLS Outpatient DIXIE MATSON, RAUL Wade [facility] RAD PT THROWN FROM TRACTOR [id number] 11/25/2012 16:18:00 11/25/2012 20:00:00 DIS Emergency CODI MOULTON [facility] ER ABD PAIN [id number] 07/01/2015 01:57:31 07/01/2015 23:59:59 CLS Outpatient Adriana Guerra
[2017-07-24 03:16] LABS: BASOPHILS # (AUTO) 0.1 10^3/uL (0.0-0.1); BASOPHILS % (AUTO) 1 % (0-10); EOSINOPHILS # (AUTO) 0.7 10^3/uL (0.0-0.3); EOSINOPHILS % (AUTO) 8 % (0-10); HEMATOCRIT 46 % (40-54); HEMOGLOBIN 15.8 G/DL (13.3-17.7); LYMPHOCYTES # (AUTO) 2.1 X 10^3 (1.0-4.0); LYMPHOCYTES % (AUTO) 25 % (12-44); MEAN CORPUSCULAR HEMOGLOBIN 30 PG (25-34); MEAN CORPUSCULAR HGB CONC 34 G/DL (32-36); MEAN CORPUSCULAR VOLUME 87 FL (80-99); MEAN PLATELET VOLUME 11.5 FL (7.4-10.4); MONOCYTES # (AUTO) 0.8 X 10^3 (0.0-1.0); MONOCYTES % (AUTO) 10 % (0-12); NEUTROPHILS % (AUTO) 57 % (42-75); PLATELET COUNT 163 10^3/uL (130-400); RED CELL DISTRIBUTION WIDTH 13.4 % (10.0-14.5); WHITE BLOOD COUNT 8.6 10^3/uL (4.3-11.0)
[2017-07-24 03:32] LABS: ALANINE AMINOTRANSFERASE 21 U/L (0-55); ALBUMIN 4.1 GM/DL (3.2-4.5); ALKALINE PHOSPHATASE 124 U/L (40-136); BILIRUBIN,TOTAL 1.5 MG/DL (0.1-1.0); BUN/CREATININE RATIO 14; CALCIUM 9.3 MG/DL (8.5-10.1); CARBON DIOXIDE 24 MMOL/L (21-32); CHLORIDE 104 MMOL/L (98-107); CREATININE SERUM 1.41 MG/DL (0.60-1.30); GFR ESTIMATED 47; GLUCOSE 113 MG/DL (70-105); LIPASE 34 U/L (8-78); MAGNESIUM 2.4 MG/DL (1.8-2.4); POTASSIUM 4.1 MMOL/L (3.6-5.0); SODIUM 139 MMOL/L (135-145); TOTAL PROTEIN 7.9 GM/DL (6.4-8.2)
[2017-07-24 03:51] LABS: TSH (THYROID ANALYZER) 1.66 UIU/ML (0.35-4.94)
[2017-07-24] MEDS ORDERED: ASPIRIN 325 MG (5 GR) TABLET ONE (04:22)
[2017-07-24] MEDS ORDERED: APIXABAN 5 MG (ELIQUIS) TABLET PO ONE (04:30)
[2017-07-24] MEDS ORDERED: ASPIRIN 325 MG (5 GR) TABLET PO ONE (04:30)
--- NOTE | 2017-07-24 04:37 | ED Chest Pain ---
General Chief Complaint: Respiratory Problems Stated Complaint: SOB Nursing Triage Note: PT C/O SOA SINCE BEDTIME. PT REPORTS THAT HE SLIPPED AND FELL ON THE ICE 2 DAYS AGO AND LANDED FLAT ON HIS BACK. HE DENIES SEEKING TX AT THAT TIME. HE STATES HE HAD L SIDED CHEST PAIN AND NAUSEA EARLIER IN THE NIGHT. Nursing Sepsis Screen: No Definite Risk Source: patient Exam Limitations: no limitations History of Present Illness Date Seen by Provider: Jul 24, 2017 Time Seen by Provider: 03:00 Initial Comments This 87-year-old gentleman presents to the emergency room with complaints of some intermittent chest pain or shortness of breath since slipping and falling on the ice 2 days ago. He denies any significant head injury or loss of consciousness. He has history of coronary artery disease and CABG. Denies any chest pain at the time of my exam. He is noted to have atrial flutter on his EKG. 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 He has not followed up with cardiology since having his CABG. Allergies and Home Medications Allergies Coded Allergies: No Known Drug Allergies (Unverified , 11/25/12) Home Medications Aspirin 81 Mg Tablet.dr, 81 MG PO DAILY, (Reported) Hypromellose 15 Ml Drops, 1 DROP OU QID PRN for DRY EYES, (Reported) Insulin NPH Hum/Reg Insulin Hm 100 Unit/1 Ml Vial, 25 UNIT SQ 0800, (Reported) Insulin NPH Hum/Reg Insulin Hm 100 Unit/1 Ml Vial, 10 UNIT SQ 1700, (Reported) Latanoprost 2.5 Ml Drops, 1 DROP OU HS, (Reported) Lisinopril 5 Mg Tablet, 2.5 MG PO DAILY, (Reported) TAKES 1/2 OF A (5 MG) TABLET Review of Systems Constitutional: no symptoms reported EENTM: No Symptoms Reported Respiratory: See HPI Cardiovascular: See HPI Gastrointestinal: No Symptoms Reported Genitourinary: No Symptoms Reported Musculoskeletal: no symptoms reported Skin: no symptoms reported Psychiatric/Neurological: No Symptoms Reported Endocrine: No Symptoms Reported Past [id number]-Gtmiza-[id number] Hx Patient Social History Alcohol Use: Occasionally Uses Number of Drinks Today: AA Alcohol Beverage of Choice: Beer Recreational Drug Use: No Smoking Status: Never a Smoker 2nd Hand Smoke Exposure: No Recent Foreign Travel: No Contact w/Someone Who Travel: No Recent Infectious Disease Expo: No Recent Hopitalizations: No Immunizations Up To Date Tetanus Booster (TDap): Unknown Date of Influenza Vaccine: Mar 04, 2016 Seasonal Allergies Seasonal Allergies: No Surgeries History of Surgeries: Yes (BI LAT KNEES REPLACED, PROSTATECTOMY) Surgeries: Cardiac, CABG, Orthopedic Respiratory History of Respiratory Disorde: No Cardiovascular History of Cardiac Disorders: Yes ([place] --2006--S/P CABG) Cardiac Disorders: Chronic Edema/Swelling, Coronary Artery Disease, Deep Vein Thrombosis, Heart Attack Neurological History of Neurological Disord: Yes (RT LEG WEAKNESS) Neurological Disorders: TIA Genitourinary Genitourinary Disorders: Prostate Problems Gastrointestinal History of Gastrointestinal Di: No Musculoskeletal History of Musculoskeletal Dis: Yes Musculoskeletal Disorders: Arthritis Endocrine History of Endocrine Disorders: Yes Endocrine Disorders: Diabetes, Insulin dep HEENT HEENT Disorders: Glaucoma Loss of Vision: Denies Hearing Impairment: Hard of Hearing Cancer History of Cancer: Yes Cancer: Prostate Psychosocial History of Psychiatric Problem: No Integumentary History of Skin or Integumenta: No Blood Transfusions History of Blood Disorders: No Family Medical History Significant Family History: Heart Disease, Hypertension Physical Exam Vital Signs Vital Signs - First Documented 07/24/17 02:24 Temp 98.2 Pulse 93 Resp 12 B/P (MAP) 151/84 (106) Pulse Ox 98 O2 Delivery Room Air Capillary Refill : Less Than 3 Seconds General Appearance: No Apparent Distress, WD/WN HEENT: PERRL/EOMI, Normal ENT Inspection, Pharynx Normal Neck: Normal Inspection, Non Tender Respiratory: Lungs Clear, Normal Breath Sounds, No Accessory Muscle Use, No Respiratory Distress Cardiovascular: Regular Rate, Rhythm, No Edema, No Murmur Gastrointestinal: Non Tender, Soft Extremity: Normal Inspection, No Pedal Edema Neurologic/Psychiatric: Alert, Oriented x3, No Motor/Sensory Deficits, Normal Mood/Affect, executive vp II-XII Norm as Tested Skin: Normal Color, Warm/Dry Progress/Results/Core Measures Results/Orders Lab Results Laboratory Tests Test 07/24/17 02:35 07/24/17 04:25 Range/Units White Blood Count 8.6 4.3-11.0 10^3/uL Red Blood Count 5.30 4.35-5.85 10^6/uL Hemoglobin 15.8 13.3-17.7 G/DL Hematocrit 46 40-54 % Mean Corpuscular Volume 87 80-99 FL Mean Corpuscular Hemoglobin 30 25-34 PG Mean Corpuscular Hemoglobin Concent 34 32-36 G/DL Red Cell Distribution Width 13.4 10.0-14.5 % Platelet Count 163 130-400 10^3/uL Mean Platelet Volume 11.5 H 7.4-10.4 FL Neutrophils (%) (Auto) 57 42-75 % Lymphocytes (%) (Auto) 25 12-44 % Monocytes (%) (Auto) 10 0-12 % Eosinophils (%) (Auto) 8 0-10 % Basophils (%) (Auto) 1 0-10 % Neutrophils # (Auto) 5.0 1.8-7.8 X 10^3 Lymphocytes # (Auto) 2.1 1.0-4.0 X 10^3 Monocytes # (Auto) 0.8 0.0-1.0 X 10^3 Eosinophils # (Auto) 0.7 H 0.0-0.3 10^3/uL Basophils # (Auto) 0.1 0.0-0.1 10^3/uL Sodium Level 139 135-145 MMOL/L Potassium Level 4.1 3.6-5.0 MMOL/L Chloride Level 104 98-107 MMOL/L Carbon Dioxide Level 24 21-32 MMOL/L Anion Gap 11 5-14 MMOL/L Blood Urea Nitrogen 20 H 7-18 MG/DL Creatinine 1.41 H 0.60-1.30 MG/DL Estimat Glomerular Filtration Rate 47 BUN/Creatinine Ratio 14 Glucose Level 113 H 70-105 MG/DL Calcium Level 9.3 8.5-10.1 MG/DL Magnesium Level 2.4 1.8-2.4 MG/DL Total Bilirubin 1.5 H 0.1-1.0 MG/DL Aspartate Amino Transf (AST/SGOT) 21 5-34 U/L Alanine Aminotransferase (ALT/SGPT) 21 0-55 U/L Alkaline Phosphatase 124 40-136 U/L Troponin I < 0.30 <0.30 NG/ML B-Type Natriuretic Peptide 98.0 <100.0 PG/ML Total Protein 7.9 6.4-8.2 GM/DL Albumin 4.1 3.2-4.5 GM/DL Lipase 34 8-78 U/L TSH [place] Testing 1.66 0.35-4.94 UIU/ML Glucometer 116 H 70-110 MG/DL My Orders Orders - HERMANN ULLOA MD BNP (07/24/17 03:06) Cbc With Automated Diff (07/24/17 03:06) Comprehensive Metabolic Panel (07/24/17 03:06) Lipase (07/24/17 03:06) Magnesium (07/24/17 03:06) Thyroid Analyzer (07/24/17 03:06) Troponin I (07/24/17 03:06) Saline Lock/Iv-Start (07/24/17 03:06) Ekg Tracing (07/24/17 03:06) O2 (07/24/17 03:06) Monitor-Rhythm Ecg Trace Only (07/24/17 03:06) Chest Pa/Lat (2 View) (07/24/17 03:06) Ekg Tracing (07/24/17 04:07) Apixaban Tablet (Eliquis Tablet) (07/24/17 04:30) Aspirin Tablet (Aspirin Tablet) (07/24/17 04:30) Accucheck Stat ONCE (07/24/17 04:22) Aspirin Tablet (Aspirin Tablet) (07/24/17 04:22) Medications Given in ED Current Medications Medications Dose Ordered Sig/Bina Route Start Time Stop Time Status Last Admin Dose Admin Apixaban 5 mg ONCE ONCE PO 07/24/17 04:30 07/24/17 04:31 DC 07/24/17 04:30 5 MG Aspirin 325 mg ONCE ONCE PO 07/24/17 04:30 07/24/17 04:31 DC 07/24/17 04:30 325 MG Vital Signs/I&O Vital Sign - Last 12Hours 07/24/17 02:24 Temp 98.2 Pulse 93 Resp 12 B/P (MAP) 151/84 (106) Pulse Ox 98 O2 Delivery Room Air Blood Pressure Mean: 106 Point of Care Testing Finger Stick Blood Glucose: 116 Blood Glucose Action Taken: physician and rn notified Progress Note : Progress Note Patient received aspirin. Case was reviewed with Dr. Diallo who advised starting Eliquis for atrial flutter noted on EKG. Workup was otherwise unremarkable. ECG Initial ECG Impression Date: Jul 24, 2017 Initial ECG Impression Time: 02:29 Initial ECG Rate: 75 Initial ECG Rhythm: A Fib/Flutter Comment Atrial flutter with 4-1 conduction with no acute ST elevation or depression. EKG : EKG Time: 04:07 Rate: 74 Rhythm: A Fib/Flutter Comment Atrial flutter with 4-1 conduction with no acute ST elevation or depression. Diagnostic Imaging Diagonstic Imaging: Xray Plain Films/CT/US/NM/MRI: chest Comments Chest x-ray viewed by me and report not available. No acute abnormalities appreciated. Departure Communication (Admissions) Time/Spoke to Admitting Phy: 04:[address] Castellanos Time/Spoke to Consulting Phy: 04:20 Communication/Consulting Dr. Diallo Impression Impression: Primary Impression: New onset atrial flutter Additional Impression: Chest pain Qualified Codes: R07.9 - Chest pain, unspecified Disposition: 09 ADMITTED INPATIENT Condition: Stable Admissions Decision to Admit Reason: Admit from ER (General) Decision to Admit/Date: Jul 24, 2017 Time/Decision to Admit Time: 04:20 Departure-Patient Inst. Referrals: FAM PALMER MD (PCP/Family) Primary Care Physician HERMANN ULLOA MD Jul 24, 2017 04:37
--- OUTSIDE RECORDS SUMMARY | 2017-07-24 04:55 | XMS REPORT | Continuity of Care Document ---
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 02/26/2016 GINA CUNNINGHAM DO Ot Z79.899 OTHER PRE SALES TECHNICAL ENGINEER (CURRENT) DRUG THERAPY 02/26/2016 GINA CUNNINGHAM DO [...] M54.5 LOW BACK PAIN 03/04/2016 CICI LUNA HULLER OPERATOR Ot Z98.1 ARTHRODESIS STATUS 03/23/2016 CICI LUNA HULLER OPERATOR Ot M47.816 SPONDYLOSIS W/O MYELOPATHY OR RADICULOPA 03/23/2016 CICI LUNA HULLER OPERATOR Ot M54.5 LOW BACK PAIN 03/23/2016 CICI LUNA HULLER OPERATOR Ot Z98.1 ARTHRODESIS STATUS 06/26/2016 FAM PALMER MD Ot E11.649 TYPE 2 DIABETES MELLITUS WITH HYPOGLYCEM 06/26/2016 FAM PALMER MD, Ot G93.41 METABOLIC ENCEPHALOPATHY 06/26/2016 FAM PALMER MD, Ot H40.9 UNSPECIFIED GLAUCOMA 06/26/2016 FAM PALMER MD, Ot I10 ESSENTIAL (PRIMARY) HYPERTENSION 06/26/2016 FAM PALMER MD Ot I25.10 ATHSCL HEART DISEASE OF [place] CORONARY 06/26/2016 FAM PALMER MD Ot I25.2 OLD MYOCARDIAL INFARCTION 06/26/2016 FAM PALMER MD Ot M19.91 PRIMARY OSTEOARTHRITIS, UNSPECIFIED SITE 06/26/2016 FAM PALMER MD Ot Z66 DO NOT RESUSCITATE 06/26/2016 FAM PALMER MD Ot Z79.4 SENIOR LIVING (CURRENT) USE OF INSULIN 06/26/2016 FAM PALMER [...] MD Ot I25.10 ATHSCL HEART DISEASE OF [place] CORONARY 06/26/2016 FAM PALMER MD Ot I25.2 OLD MYOCARDIAL INFARCTION 06/26/2016 FAM PALMER MD, Ot M19.91 PRIMARY OSTEOARTHRITIS, UNSPECIFIED SITE 06/26/2016 FAM PALMER MD Ot Z66 DO NOT RESUSCITATE 06/26/2016 FAM PALMER MD Ot Z79.4 SENIOR LIVING (CURRENT) USE OF INSULIN 06/26/2016 FAM PALMER [...] MD Ot I25.10 ATHSCL HEART DISEASE OF [place] CORONARY 06/26/2016 FAM PALMER MD Ot I25.2 OLD MYOCARDIAL INFARCTION 06/26/2016 FAM PALMER MD, Ot M19.91 PRIMARY OSTEOARTHRITIS, UNSPECIFIED SITE 06/26/2016 FAM PALMER MD Ot Z66 DO NOT RESUSCITATE 06/26/2016 FAM PALMER MD, Ot Z79.4 SENIOR LIVING (CURRENT) USE OF INSULIN 06/26/2016 FAM PALMER [...] MD, Ot I25.10 ATHSCL HEART DISEASE OF [place] CORONARY 06/30/2016 FAM PALMER MD, Ot I25.2 OLD MYOCARDIAL INFARCTION 06/30/2016 FAM PALMER MD, Ot I65.23 OCCLUSION AND STENOSIS OF BILATERAL [place] 06/30/2016 FAM PALMER MD, Ot M19.91 PRIMARY OSTEOARTHRITIS, UNSPECIFIED SITE 06/30/2016 FAM PALMER MD, Ot R50.9 FEVER, UNSPECIFIED 06/30/2016 FAM PALMER MD, Ot R53.1 WEAKNESS 06/30/2016 FAM PALMER MD, Ot Z66 DO NOT RESUSCITATE 06/30/2016 FAM PALMER MD, Ot 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 06/30/2016 FAM PALMER [...] ESSENTIAL (PRIMARY) HYPERTENSION 07/30/2016 MALDONADO, LARISA M HULLER OPERATOR Ot I65.23 OCCLUSION AND STENOSIS OF BILATERAL [place] 07/30/2016 MALDONADOLARISA HARTMANN HULLER OPERATOR Ot E11.9 TYPE 2 DIABETES MELLITUS WITHOUT COMPLIC 07/30/2016 LARISA MALDONADO HULLER OPERATOR Ot I10 ESSENTIAL (PRIMARY) HYPERTENSION 07/30/2016 LARISA MALDONADOP Ot I65.23 OCCLUSION AND STENOSIS OF BILATERAL [place] 08/14/2016 LARISA MALDONADOP Ot E11.9 TYPE 2 DIABETES MELLITUS WITHOUT COMPLIC 08/14/2016 MALDONADOLARISA HARTMANN HULLER OPERATOR Ot I10 ESSENTIAL (PRIMARY) HYPERTENSION 08/14/2016 MALDONADOLARISA HARTMANN HULLER OPERATOR Ot I65.23 OCCLUSION AND STENOSIS OF BILATERAL [place] 09/17/2016 LARISA MALDONADO HULLER OPERATOR Ot E11.9 TYPE 2 DIABETES MELLITUS WITHOUT COMPLIC 09/17/2016 LARISA MALDONADO HULLER OPERATOR Ot I10 ESSENTIAL (PRIMARY) HYPERTENSION 09/17/2016 LARISA MALDONADO HULLER OPERATOR Ot I65.23 OCCLUSION AND STENOSIS OF BILATERAL [...] - 06/25/16 18:45 Bacterial blood culture NG [facility] Blood lactic acid measurement (moles/volume) - 06/25/16 [...] rickettsii IgG antibody assay (units/volume) <1:16 <1:16 Highland spotted fever panel <1:10 <1:10 Francisella tularensis [...] measurement by glucometer (mass/volume) 112 mg/dL 70-110 [id number] - 07/24/16 08:12 Serum or plasma urea [...] plasma creatinine measurement (mass/volume) 1.46 mg/dL 0.60-1.30 Complete blood count (CBC) with automated white blood cell (WBC) differential - 07/24/17 02:35 Blood leukocytes automated count (number/volume) 8.6 10*3/uL 4.3-11.0 Blood erythrocytes automated count (number/volume) 5.30 10*6/uL 4.35-5.85 Venous blood hemoglobin measurement (mass/volume) 15.8 g/dL 13.3-17.7 Blood hematocrit (volume fraction) 46 % 40-54 Automated erythrocyte mean corpuscular volume 87 [foz_us] 80-99 Automated erythrocyte mean corpuscular hemoglobin (mass per erythrocyte) 30 pg 25-34 Automated erythrocyte mean corpuscular hemoglobin concentration measurement ( mass/volume) 34 g/dL 32-36 Automated erythrocyte distribution width ratio 13.4 % 10.0-14.5 Automated blood platelet count (count/volume) 163 10*3/uL 130-400 Automated blood platelet mean volume measurement 11.5 [foz_us] 7.4-10.4 Automated blood neutrophils/100 leukocytes 57 % 42-75 Automated blood lymphocytes/100 leukocytes 25 % 12-44 Blood monocytes/100 leukocytes 10 % 0-12 Automated blood eosinophils/100 leukocytes 8 % 0-10 Automated blood basophils/100 leukocytes 1 % 0-10 Blood neutrophils automated count (number/volume) 5.0 10*3 1.8-7.8 Blood lymphocytes automated count (number/volume) 2.1 10*3 1.0-4.0 Blood monocytes automated count (number/volume) 0.8 10*3 0.0-1.0 Automated eosinophil count 0.7 10*3/uL 0.0-0.3 Automated blood basophil count (count/volume) 0.1 10*3/uL 0.0-0.1 Comprehensive metabolic panel - 07/24/17 02:35 Serum or plasma sodium measurement (moles/volume) 139 mmol/L 135-145 Serum or plasma potassium measurement (moles/volume) 4.1 mmol/L 3.6-5.0 Serum or plasma chloride measurement (moles/volume) 104 mmol/L 98-107 Carbon dioxide 24 mmol/L 21-32 Serum or plasma anion gap determination (moles/volume) 11 mmol/L 5-14 Serum or plasma urea nitrogen measurement (mass/volume) 20 mg/dL 7-18 Serum or plasma creatinine measurement (mass/volume) 1.41 mg/dL 0.60-1.30 Serum or plasma urea nitrogen/creatinine mass ratio 14 NRG Serum or plasma creatinine measurement with calculation of estimated glomerular filtration rate 47 NRG Serum or plasma glucose measurement (mass/volume) 113 mg/dL 70-105 Serum or plasma calcium measurement (mass/volume) 9.3 mg/dL 8.5-10.1 Serum or plasma total bilirubin measurement (mass/volume) 1.5 mg/dL 0.1-1.0 Serum or plasma alkaline phosphatase measurement (enzymatic activity/volume) 124 U/L 40-136 Serum or plasma aspartate aminotransferase measurement (enzymatic activity/ volume) 21 U/L 5-34 Serum or plasma alanine aminotransferase measurement (enzymatic activity/volume ) 21 U/L 0-55 Serum or plasma protein measurement (mass/volume) 7.9 g/dL 6.4-8.2 Serum or plasma albumin measurement (mass/volume) 4.1 g/dL 3.2-4.5 Magnesium - 07/24/17 02:35 Magnesium 2.4 mg/dL 1.8-2.4 Serum or plasma troponin i.cardiac measurement (mass/volume) - 07/24/17 02:35 Serum or plasma troponin i.cardiac measurement (mass/volume) < ng/ mL <0.30 Serum or plasma lithium measurement (moles/volume) - 07/24/17 02:35 BNP level 98.0 pg/mL <100.0 Lipase - 07/24/17 02:35 Lipase 34 U/L 8-78 Serum or plasma thyrotropin measurement by detection limit <=0.05 miu/l (units/ volume) - 07/24/17 02:35 Serum or plasma thyrotropin measurement by detection limit <=0.05 miu/l (units/ volume) 1.66 u[iU]/mL 0.35-4.94 Capillary blood glucose measurement by glucometer (mass/volume) - 07/24/17 04: 25 Capillary blood glucose measurement by glucometer (mass/volume) 116 mg/dL 70-110 Encounters ACCT No. Visit Date/Time Discharge Status Pt. Type Provider Facility Loc./Unit Complaint [id number] 07/30/2016 07:26:00 07/30/2016 23:59:59 CLS Outpatient LARISA MALDONADO [facility] RAD CAROTID ARTERY STENOSIS,BILATERAL [id number] 07/24/2016 08:01:00 07/24/2016 23:59:59 CLS Outpatient LARISA MALDONADO [facility] RAD CAROTID ARTERY STENOSIS,BILATERAL [id number] 06/25/2016 18:13:00 06/30/2016 10:40:00 DIS Inpatient FAM PALMER MD [facility] 4TH HYPOGLYCEMIA; GLOBAL ENCEPHALOPHATHY [id number] 02/28/2016 09:14:00 02/28/2016 23:59:59 CLS Outpatient CICI LUNA [facility] RAD LOW BACK PAIN [id number] 02/26/2016 06:15:00 02/26/2016 07:56:00 DIS Emergency OCTAVIO KINNEY GINA Barnes [facility] ER HYPOGLYCEMIC [id number] 12/05/2012 14:34:00 12/05/2012 23:59:59 CLS Outpatient DIXIE MATSON, RAUL Wade [facility] RAD PT THROWN FROM TRACTOR [id number] 11/25/2012 16:18:00 11/25/2012 20:00:00 DIS Emergency CODI MOULTON [facility] ER ABD PAIN [id number] 07/24/2017 03:17:00 Document Registration [id number] 07/01/2015 01:57:31 07/01/2015 23:59:59 CLS Outpatient Adriana Guerra
[2017-07-24 05:38] VITALS: BP 115/81
[2017-07-24] MEDS ORDERED: ACETAMINOPHEN 500 MG TAB (TYLENOL) PO PRN (06:45)
--- NOTE | 2017-07-24 07:35 | Diagnostic Imaging Report ---
INDICATION: Pain. Fall. Comparison made with prior study from 02/26/2016. FINDINGS: Lungs demonstrate no focal infiltrate or consolidation There is no effusion or pneumothorax. Heart size and mediastinal contours appear appropriate. Pulmonary vasculature within normal limits. No fractures are evident. IMPRESSION: 1. No radiographic evidence of an acute cardiopulmonary process. 2. No evidence of fracture. Dictated by: Dictated on workstation # [id number]
[2017-07-24 07:55] VITALS: BP 115/80
[2017-07-24 08:00] VITALS: BP 117/58
[2017-07-24] MEDS ORDERED: inSUlin NPH/REG (NovoLIN 70/30) CHARGE PER UNIT SQ SCH ×3 (08:00→17:00)
--- NOTE | 2017-07-24 08:00 | Consultation-Cardiology ---
HPI-Cardiology Cardiology Consultation: Date of Consultation 07/24/17 Time Seen by Provider: 07:50 Date of Admission Attending Physician Odette Castellanos MD Admitting Physician Fam Heath MD Consulting Physician ROX RUELAS MD, MA, FACP, FACC, FSCAI, CCDS HPI: Chief Complaint: Chest discomfort, malaise HPI: 87 yo man who slipped and fell on ice on 07/20 or 07/21/17 and has since had back pain and gen body discomfort. Was experiencing anxiety and twinges of L- sided cp last night and decided to come in to the hosp. Was found to have A Fl with a controlled rate. Was hosp Chest pain: started yesterday, intermittent, lasting a few seconds, sharp, L or R parasternal, nonradiating, unassociated with other symptoms, mild, currently resolved Denies syncope or presyncope or leg swelling Review of Systems-Cardiology Review of Systems Constitutional: No malaise, No tiredness, No weight loss, No weight gain Eyes: No vision change Ears/Nose/Throat: No ear discharge, No nasal drainage, No recent hearing loss, No ulcerations Respiratory: As described under HPI Cardiovascular: As described under HPI Gastrointestinal: No constipation, No diarrhea, No nausea, No vomiting Genitourinary: No dysuria, No hematuria, No urine frequency changes Musculoskeletal: back pain Psychiatric/Neurological: No seizure, No focal weakness, No syncope Hematologic: No bleeding abnormalities FYB-Pcrexw-Mxkppl Hx Patient Social History Alcohol Use: Occasionally Uses Recreational Drug Use: No Smoking Status: Never a Smoker 2nd Hand Smoke Exposure: No Recent Foreign Travel: No Recent Infectious Disease Expo: No Hospitalization with Isolation: Denies Physical Abuse Screen: No Sexual Abuse: No Immunizations Up To Date Tetanus Booster (TDap): Unknown Date of Pneumonia Vaccine: Jul 01, 2014 Date of Influenza Vaccine: Feb 28, 2017 Past Medical History PMH As described under Assessment. Family Medical History Family Medical History: Does not report fam h/o early CAD of SCD Allergies and Home Medications Allergies Coded Allergies: No Known Drug Allergies (Unverified , 11/25/12) Home Medications Acetaminophen/Diphenhydramine 1 Each Tablet, 1 TAB PO HS PRN for PAIN, (Reported ) Aspirin 81 Mg Tablet.dr, 81 MG PO DAILY, (Reported) Atorvastatin Calcium 40 Mg Tablet, 40 MG PO HS Prescribed by: FAM HEATH on 06/30/16954 Clopidogrel Bisulfate 75 Mg Tablet, 75 MG PO DAILY Prescribed by: FAM HEATH on 06/30/16954 Dorzolamide HCl 10 Ml Drops, 1 DROP OU BID, (Reported) Doxycycline Hyclate 100 Mg Tablet, 100 MG PO BID@ Prescribed by: FAM HEATH on 06/30/16934 Hypromellose 15 Ml Drops, 1 DROP OU QID PRN for DRY EYES, (Reported) Insulin NPH Hum/Reg Insulin Hm 100 Unit/1 Ml Vial, 20 UNIT SQ BID WITH MEALS Prescribed by: FAM HEATH on 06/30/16934 Latanoprost 2.5 Ml Drops, 1 DROP OU HS, (Reported) Lisinopril 5 Mg Tablet, 2.5 MG PO DAILY, (Reported) TAKES 1/2 OF A (5 MG) TABLET Physical Exam-Cardiology Physical Exam Vital Signs/I&O Vital Sign - Last 12Hours 07/24/17 07/24/17 07/24/17 02:24 05:30 05:38 Temp 98.2 96.9 Pulse 93 73 Resp 12 19 B/P (MAP) 151/84 (106) 115/81 (92) Pulse Ox 98 96 97 O2 Delivery Room Air Room Air Room Air Capillary Refill : Less Than 3 Seconds Constitutional: AAO x 3, well-developed, well-nourished HEENT: EOMI, hearing is well preserved, No xanthelasmas are seen Neck: carotid pulses are 2 + bilaterally, with good upstrokes Respiratory: No accessory muscle use, other (good bilat air entry) Cardiovascular: regular rate-rhythm, S1 and S2, systolic murmur (faint GREGORIO at card base) Gastrointestinal: No tender, soft, No guarding, No rebound, audible bowel sounds Extremities: No clubbing, No cyanosis, No significant edema Neurologic/Psychiatric: oriented x 3, grossly intact, power is 5/5 both on sides Skin: No rash on exposed areas, No ulcerations on exposed areas Data Review Labs Laboratory Tests 07/24/17 02:35: White Blood Count 8.6, Red Blood Count 5.30, Hemoglobin 15.8, Hematocrit 46, Mean Corpuscular Volume 87, Mean Corpuscular Hemoglobin 30, Mean Corpuscular Hemoglobin Concent 34, Red Cell Distribution Width 13.4, Platelet Count 163, Mean Platelet Volume 11.5H, Neutrophils (%) (Auto) 57, Lymphocytes (%) (Auto) 25 , Monocytes (%) (Auto) 10, Eosinophils (%) (Auto) 8, Basophils (%) (Auto) 1, Neutrophils # (Auto) 5.0, Lymphocytes # (Auto) 2.1, Monocytes # (Auto) 0.8, Eosinophils # (Auto) 0.7H, Basophils # (Auto) 0.1, Sodium Level 139, Potassium Level 4.1, Chloride Level 104, Carbon Dioxide Level 24, Anion Gap 11, Blood Urea Nitrogen 20H, Creatinine 1.41H, Estimat Glomerular Filtration Rate 47, BUN/ Creatinine Ratio 14, Glucose Level 113H, Calcium Level 9.3, Magnesium Level 2.4 , Total Bilirubin 1.5H, Aspartate Amino Transf (AST/SGOT) 21, Alanine Aminotransferase (ALT/SGPT) 21, Alkaline Phosphatase 124, Troponin I < 0.30, B- Type Natriuretic Peptide 98.0, Total Protein 7.9, Albumin 4.1, Lipase 34, TSH Dobson Testing 1.66 07/24/17 04:25: Glucometer 116H Laboratory Tests 07/24/17 02:35 A/P-Cardiology Assessment/Admission Diagnosis Chest discomfort w/o any evidence of ACS A Flutter of undetermined age, first diagnosed on this hosp of 07/24/17 DM II S/p fall on 07/20/17 with residual body and back pains CAD. S/p CABG in 2005 Echo of 2017: Normal global left ventricular systolic function with an ejection fraction of approximately 65%. Mild mitral annular calcification and aortic valve sclerosis without evidence of significant valvular stenosis or regurgitation. Pulmonary artery systolic pressure estimated to be approximately 35 mmHg Admission Status: Observation Discussion and Recomendations * No evidence of ACS * Does have A Flutter with 4:1 AV conduction. Rate controlling agents not needed * Continue ASA because of CAD * Add apixaban for stroke prophylaxis. Use lower dose because age nearly 88 and Cr nearly 1.5 * Echo * Outpatient card f/u * Post-fall body pain to be evaluated and treated by the [facility] Clinical Quality Measures DVT/VTE Risk/Contraindication: Risk Factor Score Per Nursin RFS Level Per Nursing on Admit: 2=Moderate ROX RUELAS MD FACP FACC CCDS Jul 24, 2017 08:00
[2017-07-24] MEDS ORDERED: ASPIRIN E.C. 325 MG (ECOTRIN) TABLET PO SCH (09:00)
--- NOTE | 2017-07-24 09:04 | Diagnostic Imaging Report ---
PROCEDURE: CT head without contrast. TECHNIQUE: Multiple contiguous axial images were obtained through the brain without the use of intravenous contrast. INDICATION: Status post fall. Dizziness. Comparison is made with a CT angiogram from 07/30/2016. FINDINGS: There is no CT evidence of acute intracranial hemorrhage. There is no evidence of an abnormal extra-axial collection. There is advanced age-appropriate global volume loss. There are chronic microvascular changes present within the white matter and there have been previous lacunar infarcts within the thalamus bilaterally. There is no territorial loss of devine-white differentiation demonstrated. The basilar cisterns are patent posterior fossa demonstrates no acute process. The mastoid air cells appear clear. The visualized paranasal sinuses are clear. Orbital contents unremarkable. No acute calvarial abnormality is demonstrated. IMPRESSION: 1. Age-appropriate global volume loss with chronic microvascular changes in the white matter and prior thalamic lacunar infarcts. By CT imaging there is no evidence of an acute intracranial abnormality. Dictated by: Dictated on workstation # [id number]
[2017-07-24] MEDS ORDERED: HUM100VI SQ ×2 (09:30)
--- NOTE | 2017-07-24 11:44 | Short Stay Summary-Hospitalist ---
HPI History of Present Illness: HPI/Chief Complaint CC: New onset AF HPI: This is an 87-year-old white male patient of Dr. Heath [facility] a [facility] but has not followed up with cardiology since that time who presents to the ER after feeling lightheaded and palpitations found to have new onset atrial flutter atrial fibrillation cities placed in observation consulted cardiology and Dr. Diallo has been consulted and will resume his aspirin therapy and due to the cost of chronic anticoagulation he will provide patient with a coupon on Wednesday to fill for stroke prophylaxis. He has a delayed conduction making rate control and issue considering significant bradycardia and possible heart block could occur. At this current time patient is agreement and wants to go home. 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) Alcohol Use: Occasionally Uses Number of Drinks Today: AA Alcohol Beverage of Choice: Beer Recreational Drug Use: No Smoking Status: Never a Smoker 2nd Hand Smoke Exposure: No Physical Abuse Screen: No Sexual Abuse: No Recent Foreign Travel: No Contact w/other who traveled: No Recent Hopitalizations: No Recent Infectious Disease Expo: No Immunizations Up To Date Tetanus Booster (TDap): Unknown Date of Pneumonia Vaccine: Jul 01, 2014 Date of Influenza Vaccine: Feb 28, 2017 Seasonal Allergies Seasonal Allergies: No Surgeries Yes (BI LAT KNEES REPLACED, PROSTATECTOMY) Cardiac, CABG, Orthopedic Respiratory No Cardiovascular Yes ([facility]) Chronic Edema/Swelling, Coronary Artery Disease, Deep Vein Thrombosis, Heart Attack Neurological Yes (RT LEG WEAKNESS) TIA Genitourinary Prostate Problems Gastrointestinal No Musculoskeletal Yes Arthritis Endocrine History of Endocrine Disorders: Yes Endocrine Disorders: Diabetes, Insulin dep HEENT HEENT Disorders: Glaucoma Loss of Vision: Denies Hearing Impairment: Hard of Hearing Cancer Yes Prostate Psychosocial History of Psychiatric Problem: No Integumentary History of Skin or Integumenta: No Blood Transfusions History of Blood Disorders: No Family Medical History Significant Family History: Heart Disease, Hypertension Review of Systems Constitutional: see HPI, weakness EENTM: no symptoms reported Respiratory: short of breath Cardiovascular: palpitations Gastrointestinal: no symptoms reported Genitourinary: no symptoms reported Musculoskeletal: no symptoms reported Skin: no symptoms reported Psychiatric/Neurological: No Symptoms Reported All Other Systems Reviewed Negative Unless Noted: Yes Physical Exam Physical Exam Vital Signs Vital Signs - First Documented 07/24/17 02:24 Temp 98.2 Pulse 93 Resp 12 B/P (MAP) 151/84 (106) Pulse Ox 98 O2 Delivery Room Air Capillary Refill : Less Than 3 Seconds General Appearance: No Apparent Distress, WD/WN, Chronically ill Eyes: Bilateral Eye Normal Inspection, Bilateral Eye PERRL HEENT: PERRL/EOMI, Normal ENT Inspection, Pharynx Normal Neck: Full Range of Motion, Normal Inspection, Non Tender, Supple, Carotid Bruit Respiratory: Chest Non Tender, Lungs Clear, Normal Breath Sounds, No Accessory Muscle Use, No Respiratory Distress Cardiovascular: No Edema, No Gallop, No JVD, No Murmur, Normal Peripheral Pulses, Irregularly Irregular Gastrointestinal: Normal Bowel Sounds, No Organomegaly, No Pulsatile Mass, Non Tender, Soft Back: Normal Inspection, No CVA Tenderness, No Vertebral Tenderness Extremity: Normal Capillary Refill, Normal Inspection, Normal Range of Motion, Non Tender, No Calf Tenderness, No Pedal Edema Neurologic/Psychiatric: Alert, Oriented x3, No Motor/Sensory Deficits, Normal Mood/Affect Skin: Normal Color, Warm/Dry Lymphatic: No Adenopathy Results Results/Procedures Lab Laboratory Tests 07/24/17 02:35 Short Stay Diagnosis Discharge Diagnosis-Short Stay Admission Diagnosis Assessment: New onset atrial flutter, atrial fibrillation Junctional rhythm making antiarrhythmics difficult to initiate due to high risk for additional heart block CAD previous bypass has not seen cardiology since that time Diabetes mellitus insulin-dependent Fall on ice but CT head and chest x-ray negative Final Discharge Diagnosis Assessment: New onset atrial flutter, atrial fibrillation Junctional rhythm making antiarrhythmics difficult to initiate due to high risk for additional heart block CAD previous bypass has not seen cardiology since that time Diabetes mellitus insulin-dependent Fall on ice but CT head and chest x-ray negative Conclusion Plan Plan: Monitor closely DC home Aspirin therapy indicated to be continued Cardiology follow-up on Wednesday for anticoagulation plan Copy Copies To 1: FAM HEATH MD Clinical Quality Measures DVT/VTE Risk/Contraindication: Risk Factor Score Per Nursin RFS Level Per Nursing on Admit: 2=Moderate JEROD HOUSE DO Jul 24, 2017 11:44
[2017-07-24 11:59] VITALS: BP 128/72
[2017-07-24 14:25] VITALS: BP 128/72
[2017-07-24] MEDS ORDERED: APIXABAN 2.5 MG (ELIQUIS) TABLET PO SCH (21:00)
[2017-07-24] MEDS ORDERED: LATANOPROST 0.005% (XALATAN) OPHTH SOLN 2.5 ML OU SCH (21:00)
[2017-07-25] MEDS ORDERED: inSUlin NPH/REG (NovoLIN 70/30) CHARGE PER UNIT SQ SCH (08:00)
[2017-07-25] MEDS ORDERED: ASPIRIN E.C. 81 MG (ECOTRIN) TAB PO SCH (09:00)
[2017-07-25] MEDS ORDERED: lisINopril 5 MG (PRINIVIL) TABLET PO SCH (09:00)
== END 2017-07-24 11:47 | disposition home or self-care (01) ==
LOC: EDUNIT# 02:24 → ER 02:25 → UNDOADMOB 04:47 → ICU 04:47 → UNDODISOB 14:25
PROVIDERS: ADMIT Family Medicine; ATTEND Family Medicine
DX: I48.92 Unspecified atrial flutter (principal); I48.91 Unspecified atrial fibrillation; I25.10 Atherosclerotic heart disease of native coronary artery without angina pectoris; Z95.1 Presence of aortocoronary bypass graft; E11.9 Type 2 diabetes mellitus without complications; Z79.4 Long term (current) use of insulin; I25.2 Old myocardial infarction; Z96.651 Presence of right artificial knee joint; Z96.652 Presence of left artificial knee joint; M54.9 Dorsalgia, unspecified; W00.9XXA Unspecified fall due to ice and snow, initial encounter; Z79.899 Other long term (current) drug therapy
CPT/HCPCS: 36415; 70450; 71046; 80053; 82962; 83690; 83735; 83880; 84443; 84484; 85025; 93005; 93041; 93306

== ENCOUNTER → 2018-03-10 06:31 | Outpatient (RCR) | payer MEDICARE ==
[~2018-03-10] VITALS: Ht 182.9 cm; Wt 93.0 kg
[~2018-03-10 06:31] MED LIST changes: +DORZ10DR18 OU; -DORZ10DR2 OU; +HUM100VI SQ; +NS IV 1000 ML 1,000 ML IV SCH; +NS IV 1000 ML 1,000 ML ONE; +ONDANSETRON 4 MG/2 ML (SDV) Z0FRAN IVP ONE; +ONDANSETRON 4 MG/2 ML (SDV) Z0FRAN IVP PRN; +ONDANSETRON 4 MG/2 ML (SDV) Z0FRAN IVP SCH; +ONDANSETRON 4 MG/2 ML (SDV) Z0FRAN ONE; +PROMETHAZINE INJ 25 MG/ML (PHENERGAN) AMP IVP PRN
[2018-03-10 14:50] VITALS: BP 131/71
[2018-03-10 15:20] LABS: BASOPHILS % (AUTO) 1 % (0-10); EOSINOPHILS # (AUTO) 0.3 10^3/uL (0.0-0.3); EOSINOPHILS % (AUTO) 5 % (0-10); HEMATOCRIT 45 % (40-54); HEMOGLOBIN 15.5 G/DL (13.3-17.7); LYMPHOCYTES # (AUTO) 1.3 X 10^3 (1.0-4.0); LYMPHOCYTES % (AUTO) 21 % (12-44); MEAN CORPUSCULAR HEMOGLOBIN 30 PG (25-34); MEAN CORPUSCULAR HGB CONC 35 G/DL (32-36); MEAN CORPUSCULAR VOLUME 87 FL (80-99); MEAN PLATELET VOLUME 11.6 FL (7.4-10.4); MONOCYTES # (AUTO) 0.6 X 10^3 (0.0-1.0); MONOCYTES % (AUTO) 10 % (0-12); NEUTROPHILS % (AUTO) 64 % (42-75); PLATELET COUNT 70 10^3/uL (130-400); RED BLOOD COUNT 5.18 10^6/uL (4.35-5.85); RED CELL DISTRIBUTION WIDTH 13.3 % (10.0-14.5); WHITE BLOOD COUNT 6.2 10^3/uL (4.3-11.0)
[2018-03-10 15:25] LABS: BILIRUBIN,URINE NEGATIVE (NEGATIVE); CLARITY,URINE CLEAR; COLOR,URINE YELLOW; GLUCOSE, URINE (UA) 4+ (NEGATIVE); KETONES,URINE NEGATIVE (NEGATIVE); LEUKOCYTE ESTERASE ,URINE NEGATIVE (NEGATIVE); NITRITE,URINE NEGATIVE (NEGATIVE); PH,URINE 5 (5-9); PROTEIN,URINE 2+ (NEGATIVE); UROBILINOGEN,URINE 1 MG/DL (NORMAL)
[2018-03-10 15:40] LABS: ALBUMIN 4.1 GM/DL (3.2-4.5); BILIRUBIN,TOTAL 1.1 MG/DL (0.1-1.0); CALCIUM 9.4 MG/DL (8.5-10.1); CREATININE SERUM 1.38 MG/DL (0.60-1.30); POTASSIUM 4.1 MMOL/L (3.6-5.0); TOTAL PROTEIN 7.5 GM/DL (6.4-8.2)
[2018-03-10 15:43] LABS: BACTERIA,URINE NEGATIVE /HPF; RBC,URINE 0-2 /HPF; SQUAMOUS EPITHELIAL CELL,UR 0-2 /HPF
[2018-03-10 16:35] VITALS: BP 131/71
== END | disposition home or self-care (01) ==
LOC: SDC 06:31
PROVIDERS: ATTEND Nurse Practitioner Family
DX: E86.0 Dehydration (principal); R55 Syncope and collapse; R11.0 Nausea
CPT/HCPCS: 36415; 80053; 81000; 85025; 93005; 96360; 96374